=== PATIENT | male | born 1975 | race Caucasian/White ===

== ENCOUNTER 2023-10-13 15:48 | Outpatient (OUT) | payer BC, SELFPAY ==
--- NOTE | 2023-10-13 15:56 | US_ITS ---
[address] [address] Patient Name: STEVIE MIKE MRN: [id number] date: 1975 Sex: M Assigned Patient Location: [place] Current Patient Location: [place] Accession/Order Number: [id number] Exam Date: 10/13/2023 16:03 Report Date: 10/15/2023 12:39 At the request of: BRANDI WYNN Procedure: US carotid duplex BI EXAMINATION: US carotid duplex BI HISTORY: dizziness, headache, right sided neck pain COMPARISON: No relevant comparison available. TECHNIQUE: Duplex Doppler ultrasound analysis of carotid and vertebral arteries. . Bilateral carotid arterial duplex examination was performed using B-mode, color flow and spectral analysis. Carotid stenosis is reported according to validated velocity parameters, similar to NASCET criteria. FINDINGS: RIGHT CAROTID ARTERY: Minimal atherosclerotic disease; no significant stenosis. RIGHT VERTEBRAL: Antegrade flow. Subclavian: PSV: 174.0 cm/s EDV: 32.3 cm/s CCA: Prox: PSV: 110.2 cm/s EDV: 21.5 cm/s Mid: PSV: 80.6 cm/s EDV: 15.6 cm/s Distal: PSV: 63.3 cm/s EDV: 8.9 cm/s BULB: PSV: 45.2 cm/s EDV: 8.9 cm/s ICA: Prox: PSV: 50.4 cm/s EDV: 19.7 cm/s Mid: PSV: 63.3 cm/s EDV: 23.2 cm/s Distal: PSV: 59.4 cm/s EDV: 23.2 cm/s ECA: PSV: 112.9 cm/s EDV: 17.6 cm/s VERTEBRAL: PSV: 53.1 cm/s EDV: 19.2 cm/s ICA/CCA ratio: PSV: 0.8 EDV: 1.5 LEFT CAROTID ARTERY: Minimal atherosclerotic disease; no significant stenosis. LEFT VERTEBRAL: Antegrade flow. Subclavian: PSV: 197.5 cm/s EDV: 0.0 cm/s CCA: Prox: PSV: 136.1 cm/s EDV: 30.3 cm/s Mid: PSV: 102.7 cm/s EDV: 22.0 cm/s Distal: PSV: 84.6 cm/s EDV: 17.5 cm/s BULB: PSV: 66.8 cm/s EDV: 21.5 cm/s ICA: Prox: PSV: 77.4 cm/s EDV: 32.1 cm/s Mid: PSV: 83.8 cm/s EDV: 32.1 cm/s Distal: PSV: 82.2 cm/s EDV: 32.1 cm/s ECA: PSV: 101.5 cm/s EDV: 25.7 cm/s VERTEBRAL: PSV: 56.8 cm/s EDV: 16.7 cm/s ICA/CCA ratio: PSV: 0.8 EDV: 1.5 US/US carotid duplex BI IMPRESSION: 1. Minimal atherosclerotic disease. 2. 0-49% flow stenosis within the right and left carotid arteries. Spectral Doppler US Thresholds Stenosis (%) PSV (cm/sec) VICA/VCCA 0-49 <150 <2.5 50-69 150-225 2.5-4.0 >70 >225 >4.0 Electronically authenticated by: KARMA BARKLEY Date: 10/15/2023 12:39
== END 2023-10-13 15:49 | disposition home or self-care (01) ==
LOC: US 15:52
PROVIDERS: PCP Nurse Practitioner; Visit Provider Nurse Practitioner
DX: R42 Dizziness and giddiness (principal); R51.9 Headache, unspecified; M54.2 Cervicalgia
CPT/HCPCS: 93880

== ENCOUNTER 2024-09-25 15:50 | Outpatient (OUT) | payer OTHER, SELFPAY ==
--- NOTE | 2024-09-25 16:00 | XR_ITS ---
The [address] [address] Patient Name: STEVIE MIKE MRN: [id number] date: 1975 Sex: M Assigned Patient Location: [facility] Current Patient Location: [facility] Accession/Order Number: [id number] Exam Date: 09/25/2024 18:20 Report Date: 09/25/2024 18:21 At the request of: BRANDI WYNN Procedure: XR ankle RT min 3V XR ankle RT min 3V 09/25/2024 4:08 PM SIGNS AND SYMPTOMS: Frontal, lateral, and oblique radiographs of the right ankle PROTOCOL: Frontal, lateral, and oblique radiographs of the right ankle COMPARISON: None FINDINGS: The ankle mortise is preserved. There is no evidence of acute displaced fracture. No dislocation or subluxation. There is plantar surface calcaneal spurring. There is diffuse soft tissue swelling. XR/XR ankle RT min 3V IMPRESSION: No fracture. Diffuse soft tissue swelling is noted. There is also mild plantar surface calcaneal spurring. Impression dictated by: Sandeep Campuzano M.D.09/25/2024 6:21 PM Dictation Location: [place] [address] Electronically authenticated by: [id number] Y Date: 09/25/2024 18:21
--- NOTE | 2024-09-25 16:00 | XR_ITS ---
The [address] [address] Patient Name: STEVIE MIKE MRN: [id number] date: 1975 Sex: M Assigned Patient Location: [facility] Current Patient Location: [facility] Accession/Order Number: [id number] Exam Date: 09/25/2024 18:19 Report Date: 09/25/2024 18:20 At the request of: BRANDI WYNN Procedure: XR tibia fibula RT 2V XR tibia fibula RT 2V 09/25/2024 4:08 PM SIGNS AND SYMPTOMS: ^Riight Leg Injury, Right Ankle Injury PROTOCOL: Frontal and lateral radiographs of the right tibia and fibula COMPARISON: None FINDINGS: The bones are in anatomical. There is no evidence of fracture. The visualized weightbearing joint spaces of the right knee are preserved. The right tibiotalar joint space is preserved. No significant soft tissue swelling. XR/XR tibia fibula RT 2V IMPRESSION: No acute bony injury. Impression dictated by: Sandeep Campuzano M.D.09/25/2024 6:20 PM Dictation Location: [place] [address] Electronically authenticated by: [id number] Y Date: 09/25/2024 18:20
--- OUTSIDE RECORDS SUMMARY | 2024-09-25 16:13 | XMS_ITS | CCD ---
Author Organization [facility] Care Team Providers Care Tool And Die Maker Name Role Phone Mellissa Salazar Primary Care Provider Mumtaz Bone Attending Provider [phone] Unavailable Unavailable Mellissa Salazar Unavailable Mellissa Salazar Primary Care Unavailable NORTH Haddad Attending Unavailable NORTH Haddad Referring Unavailable DR MELLISSA RIGGS Primary Care Unavailable GUTIERREZ BEAN Attending Unavailable GUTIERREZ BEAN Consulting Unavailable GUTIERREZ BEAN Admitting Unavailable Kristie Manley Primary Care Physician [phone] [place] TELEVISION PRODUCER-Kristie KAT Primary Care Provider [phone] MANAN MEDRANO Attending Unavailable MANAN MEDRANO Referring Unavailable TIANNAKRISTIE BAKER Primary Care Unavailable MANAN MEDRANO Referring Unavailable TIANNAKRISTIE BAKER Primary Care Unavailable MANAN MEDRANO Attending Unavailable MANAN MEDRANO Attending Unavailable TIANNAKRISTIE Primary Care Unavailable TiannaKristie Attending Unavailable ITZ CULLEN Attending Unavailable TiannaKristie Attending Unavailable TiannaKristie Attending Unavailable TiannaKristie Attending Unavailable TiannaKristie Attending Unavailable ITZ CULLEN Admitting Unavailable ITZ CULLEN Attending Unavailable Unavailable Unavailable Unavailable Medications Current Medications Medication Drug Class(es) Dates Sig (Normalized) Sig (Original) amLODIPine 5 mg oral tablet (11 sources) Dihydropyridine Calcium Channel Marleen Start: 10-25-2023 End: 10-24-2024 take 1 tablet by mouth once daily amLODIPine (Norvasc) 5 mg tablet Indications: Benign essential hypertension Take 1 tablet (5 mg) by mouth once daily. 30 tablet 11 10/25/2023 10/24/2024 Active Start: 10-08-2020 End: 10-25-2023 take 1 tablet by mouth once daily amLODIPine 2.5 mg Tab 2.5 mg = 1 tab(s), Oral, Daily, # 90 tab(s), Refills(s) 3, Pharmacy: [facility] #[id number], 188.8, cm, 07/12/23 9:49:00 EST, Height/Length Dosing, 159.2, kg, 07/12/23 9:49:00 EST, Weight Dosing Start Date: 08/15/23 Status: Ordered famotidine 40 mg oral tablet (1 source) Histamine-2 Receptor Antagonist Start: 09-22-2020 take 40 mg by mouth once daily Famotidine Active 40 MG PO Daily September 22, 2020 9:21am hydroCHLOROthiazide 25 mg / lisinopril 20 mg oral tablet (6 sources) Thiazide Diuretic, Angiotensin Converting Enzyme Inhibitor Start: 03-04-2019 hydrochlorothia zide-lisinopril 25 mg-20 mg Tab 1 tab(s), Oral, Daily, 90 tab(s), Refill(s) 3, [facility][id number], 188.8, cm, 07/12/23 9:49:00 EST, Height/Length Dosing, 159.2, kg, 07/12/23 9:49:00 EST, Weight Dosing Start Date: 08/28/23 Status: Ordered lisinopril 5 mg oral tablet (1 source) Angiotensin Converting Enzyme Inhibitor Start: 12-07-2020 take 1 mg by mouth once daily lisinopril 5 mg Tab mg tab(s), Oral, Daily, Refills(s) 0 Start Date: 12/07/20 Status: Ordered metFORMIN hydrochloride 500 mg oral tablet (7 sources) Biguanide Start: 12-07-2020 take 1 tablet by mouth twice daily metformin 500 mg Tab 500 mg = 1 tab(s), Oral, BID, # 180 tab(s), Refills(s) 1, Pharmacy: [facility]pharmacy #[id number], 188.8, cm, 04/05/23 14:52:00 EDT, Height/Length Dosing, 157.9, kg, 04/05/23 14:52:00 EDT, Weight Dosing Start Date: 04/10/23 Status: Ordered Start: 10-26-2020 take 1 tablet by rand th once daily in the morning metFORMIN HCl - 500 MG Oral Tablet TAKE 1 TABLET BY MOUTH EVERY DAY IN THE MORNING Quantity: 90 Refills: 0 Ordered: 23-Oct-2021 DO Start : 26-Oct-2020 Active Start: 09-22-2020 take 500 mg by mouth once daily in the morning Metformin Active 500 MG PO Every morning September 22, 2020 9:21am Completed/Discontinued Medications Medication Drug Class(es) Dates Sig (Normalized) Sig (Original) atorvastatin 20 mg oral tablet (1 source) HMG-CoA Reductase Inhibitor Start: 03-07-2019 End: 09-22-2020 take 20 mg by mouth once daily at bedtime Atorvastatin Discontinued 20 MG PO Daily at bedtime March 07, 2019 3:16pm September 22, 2020 9:24am cyproheptadine hydrochloride 4 mg oral tablet (1 source) Start: 03-07-2019 End: 09-22-2020 take 2 mg by mouth once daily at bedtime Cyproheptadine Discontinued 2 MG PO Daily at bedtime 15 March 07, 2019 3:14pm September 22, 2020 9:24am Problems Problem Classification Problem Date Documented Da te Episodic/Chronic Asthma (2 sources) Asthma 10-11-2013 Chronic Conditions associated with dizziness or vertigo (2 sources) Dizziness; Translations: [Lightheadedness] Episodic Disorders of teeth and jaw (1 source) Toothache 07-12-2023 Episodic Essential hypertension (18 sources) Hypertensive disorder; Translations: [Benign essential hypertension] Onset: 07-16-2022 Chronic Nonspecific chest pain (1 source) Precordial pain; Translations: [Precordial pain] Episodic Open wounds of head; neck; and trunk (1 source) Fracture of tooth 07-12-2023 Episodic Other nutritional; endocrine; and metabolic disorders (3 sources) Body mass index 30+ - obesity; Translations: [Body mass index (BMI) 39.0-39.9, adult] Onset: 04-25-2024 04-25-2024 Chronic Other nutritional; endocrine; and metabolic disorders (6 sources) Body mass index 40+ - severely obese; Translations: [Morbid obesity] Onset: 10-25-2023 10-05-2023 Chronic Other nutritional; endocrine; and metabolic disorders (5 sources) Metabolic syndrome X; Translations: [Metabolic syndrome] Onset: 10-25-2023 10-25-2023 Chronic Other nutritional; endocrine; and metabolic disorders (2 sources) Body mass index (BMI) 39.0-39.9, adult; Translations: [Body mass index (BMI) 39.0-39.9, adult] Onset: 04-25-2024 Chronic Other nutritional; endocrine; and metabolic disorders (2 sources) Morbid (severe) obesity due to excess calories; Translations: [Morbid (severe) obesity due to excess calories (CMS/HCC)] Onset: 10-25-2023 Chronic Other nutritional; endocrine; and metabolic disorders (2 sources) Body mass index (BMI) 40.0-44.9, adult; Translations: [Body mass index (BMI) 40.0-44.9, adult (CMS/HCC)] Onset: 10-25-2023 Chronic Other nutritional; endocrine; and metabolic disorders (1 source) Metabolic syndrome; Translations: [Metabolic syndrome] Onset: 10-25-2023 Chronic Residual codes; unclassified (3 sources) Obstructive sleep apnea syndrome; Translations: [Obstructive sleep apnea syndrome] 04-04-2023 Chronic Screening and history of mental health and substance abuse codes (8 sources) Ex-smoker; Translations: [Personal history of tobacco use] Onset: 10-25-2023 10-25-2023 Episodic Comment on above: quit 2009; Syncope (2 sources) Near syncope; Translations: [Syncope] Episodic Unclassified (2 sources) Patient encounter status 04-05-2023 Unclassified (1 source) Severe acute respiratory syndrome coronavirus 2 detected 07-25-2023 Results Test Name Value Interpretation Reference Range Facility Ambulatory Visit Summaryon 1 08-11-2023 Ambulatory Visit Summary Ambulatory Visit Summary STEVIE MIKE :1975 Visit Date:06/11/2024 Ambulatory Visit Instructions Your Diagnosis Adult BMI 40.0-44.9 kg/sq m Former smoker Your Care Team Attending Physician - Kristie Syed Primary Care Physician - Kristie Syed This Is Your Medications List amlodipine (amLODIPine 2.5 mg Tab) hydrochlorothiazide-lisino pril (hydrochlorothiazide-lisin opril 25 mg-20 mg Tab) metformin (metformin 500 mg Tab) Procedures Performed Hernia. Discharge Vitals Temperature (Tympanic) 36.9 ???C Heart Rate (Peripheral) 76 Respiratory Rate 18 Blood Pressure 146/92 Height 188.8 cm Height 74 in Weight 155.45 kg Weight 342.708 lb BMI 43.61 Medications What How Much When Instructions Unchanged amlodipine (amLODIPine 2.5 mg Tab) 1 Tablets By Mouth Every day Unchanged hydrochlorothiazide-lisino pril (hydrochlorothiazide-lisin opril 25 mg-20 mg Tab) 1 Tablets By Mouth Every day Unchanged metformin (metformin 500 mg Tab) 1 Tablets By Mouth 2 times a day Allergies No Known Allergies Problems Ongoing - Any problem that you are currently receiving treatment for. BMI 40.0-44.9, adult BMI 45.0-49.9, adult Broken tooth COVID-19 virus detected Dizziness Fracture of tooth Headache Hypertension Neck pain on right side Obstructive sleep apnea syndrome Tendonitis of finger Tooth pain Wellness examination Historical - Any problem that you are no longer receiving treatment for. ASTHMA Patient Survey You may receive a survey via text or e-mail asking about your office visit. Please share your experience with us by completing your survey. We appreciate your feedback and thank you for choosing us for your care. Normal Cuellar [facility] Family Medicine Office/Clini c Noteon 06-11-2024 Family Medicine Office/Clinic Note Family Medicine Office/Clinic Note HPI Staff Stevie is a 48 year old male presenting for sick visit Onset: 4 days ago Body aches: no Chills: intermittent Fatigue: no Cough: yes intermittent productive Sore throat: yes Fever: no Headache: no Nasal congestion: yes Loss of taste: no Loss of smell: no Eye itching/watering: no Sneezing: no SOB: no OTC: Mucinex, ibuprofen, Tylenol History of Present Illness pt presents today with URI symptoms Review of Systems PHQ Score Initial Depression Screen Score: 0 SCORE Physical Exam Vitals & Measurements T: 36.9 ???C(Tympanic) HR: 76(Peripheral) RR: 18 BP: 146/92 SpO2: 98% HT: 74 in HT: 188.8 cm WT: 155.45 kg WT: 342.708 lb BMI: 43.61 General: alert, no acute distress ENMT: oral mucosa moist, no pharyngeal erythema or exudate Cardiovascular: regular rate and rhythm, normal peripheral perfusion Respiratory: Lungs CTA, respirations non labored Extremities: no deformity, no trauma Neurological: oriented x 4, LOC appropriate for age, CN II-XII intact, motor strength equal & normal bilaterally, speech normal Assessment/Plan 1. Cough (R05.9: Cough, unspecified) pt c/o worsening cough. will send in azithromycin, medrol dose pack and bromfed Ordered: azithromycin, = 1 packet(s), Oral, As Directed, as directed on package labeling, X 5 day(s), # 6 tab(s), Refills(s) 0, Pharmacy: [facility]/pharm[facility] #[id number], 188.8, cm, 06/11/24 9:12:00 EST, Height/Length Dosing, 155.4, kg, 06/11/24 9:12:00 EST, Weight Dosing brompheniramine/dextrometh orphan/PSE, 5 mL, Oral, QID for cold symptoms, 200 mL, Refill(s) 0, [facility][id number], 188.8, cm, 06/11/24 9:12:00 EST, Height/Length Dosing, 155.4, kg, 06/11/24 9:12:00 EST, Weight Dosing methylPREDNISolone, = 1 packet(s), Oral, As Directed, as directed on package labeling, X 6 day(s), # 21 tab(s), Refills(s) 0, Pharmacy: [facility]pharm[facility] #[id number], 188.8, cm, 06/11/24 9:12:00 EST, Height/Length Dosing, 155.4, kg, 06/11/24 9:12:00 EST, Weight Dosing 2. Chills (R68.83: Chills (without fever)) having chills on and off Ordered: azithromycin, = 1 packet(s), Oral, As Directed, as directed on package labeling, X 5 day(s), # 6 tab(s), Refills(s) 0, Pharmacy: [facility] #[id number], 188.8, cm, 06/11/24 9:12:00 EST, Height/Length Dosing, 155.4, kg, 06/11/24 9:12:00 EST, Weight Dosing brompheniramine/dextrometh orphan/PSE, 5 mL, Oral, QID for cold symptoms, 200 mL, [facility](s) 0, [id number], cm, 06/11/24 9:12:00 EST, Height/Length Dosing, 155.4, kg, 06/11/24 9:12:00 EST, Weight Dosing methylPREDNISolone, = 1 packet(s), Oral, As Directed, as directed on package labeling, X 6 day(s), # 21 tab(s), Refills(s) 0, [id number], 188.8, cm, 06/11/24 9:12:00 EST, Height/Length Dosing, 155.4, kg, 06/11/24 9:12:00 EST, Weight Dosing 3. Adult BMI 40.0-44.9 kg/sq m (Z68.41: Body mass index [BMI] 40.0-44.9, adult) BMI education given Ordered: azithromycin, = 1 packet(s), Oral, As Directed, as directed on package labeling, X 5 day(s), # 6 tab(s), Refills(s) 0, [id number], 188.8, cm, 06/11/24 9:12:00 EST, Height/Length Dosing, 155.4, kg, 06/11/24 9:12:00 EST, Weight Dosing brompheniramine/dextrometh orphan/PSE, 5 mL, Oral, QID for cold symptoms, 200 mL, Refill(s) 0, [id number], 188.8, cm, 06/11/24 9:12:00 EST, Height/Length Dosing, 155.4, kg, 06/11/24 9:12:00 EST, Weight Dosing methylPREDNISolone, = 1 packet(s), Oral, As Directed, as directed on package labeling, X 6 day(s), # 21 tab(s), Refills(s) 0, [id number], 188.8, cm, 06/11/24 9:12:00 EST, Height/Length Dosing, 155.4, kg, 06/11/24 9:12:00 EST, Weight Dosing 4. Former smoker (Z87.891: Personal history of nicotine dependence) continue not smoking Ordered: azithromycin, = 1 packet(s), Oral, As Directed, as directed on package labeling, X 5 day(s), # 6 tab(s), Refills(s) 0, [id number], 188.8, cm, 06/11/24 9:12:00 EST, Height/Length Dosing, 155.4, kg, 06/11/24 9:12:00 EST, Weight Dosing brompheniramine/dextrometh orphan/PSE, 5 mL, Oral, QID for cold symptoms, 200 mL, Refill(s) 0, [id number], 188.8, cm, 06/11/24 9:12:00 EST, Height/Length Dosing, 155.4, kg, 06/11/24 9:12:00 EST, Weight Dosing methylPREDNISolone, = 1 packet(s), Oral, As Directed, as directed on package labeling, X 6 day(s), # 21 tab(s), Refills(s) 0, [id number], 188.8, cm, 06/11/24 9:12:00 EST, Height/Length Dosing, 155.4, kg, 06/11/24 9:12:00 EST, Weight Dosing Orders: meloxicam, See Instructions, TAKE 1 TABLET BY MOUTH EVERY DAY, # 30 tab(s), Refills(s) 0, Pharmacy: [id number], 188.8, cm, 02/27/24 15:18:00 EDT, Height/Length Dosing, 155.6, kg, 02/27/24 15:18:00 EDT, Weight Dosing Follow-up No qualifying data available Problem List/Past Medical History Ongoing BMI 40.0-44.9, adult BMI 45.0-49.9, adult Broken tooth Chills Cough COVID-19 virus detected Dizziness Fracture of tooth Headache Hypertension Neck pain (more content not included)... Normal [facility] Comment on above: Result Comment: Elec tronically Signed By: Kristie Syed\.br\Date and Time Signed: 06/11/24 10:05 EST Provider Letteron 06-11-2024 Provider Letter Provider Letter June 11, 2024 STEVIE [address]KE [address] [place] [address] : 1975 To Whom It May Concern, Date of Illness: From: _06-10-24 To: _ 06-11-24 May Return to Work On:06-17-24 Restrictions: _ Comments: _ Sincerely, [facility] [address] [address] [facility] Ambulatory Visit Summaryon 0 02-27-2024 Ambulatory Visit Summary Ambulatory Visit Summary RASHID STEVIE Reji :1975 Visit Date:02/27/2024 Ambulatory Visit Instructions Your Diagnosis Tendonitis of finger Former smoker BMI 40.0-44.9, adult Your Care Team Attending Physician - Kristie Syed Primary Care Physician - Kristie Syed This Is Your Medications List amlodipine (amLODIPine 2.5 mg Tab) hydrochlorothiazide-lisino pril (hydrochlorothiazide-lisin opril 25 mg-20 mg Tab) meloxicam (meloxicam 7.5 mg Tab) metformin (metformin 500 mg Tab) methylPREDNISolone (Medrol 4 mg Tab) Procedures Performed Hernia. Medications What How Much When Why Instructions New meloxicam (meloxicam 7.5 mg Tab) 1 Tablets By Mouth Every day Tendonitis of finger Former smoker BMI 40.0-44.9, adult Pickup at [facility] #[id number] New methylPREDNISolone (Medrol 4 mg Tab) 1 Packets By Mouth As Directed Tendonitis of finger Former smoker BMI 40.0-44.9, adult Duration: 6 Days as directed on package labeling Pickup at [facility] #[id number] Unchanged amlodipine (amLODIPine 2.5 mg Tab) 1 Tablets By Mouth Every day Unchanged hydrochlorothiazide-lisino pril (hydrochlorothiazide-lisin opril 25 mg-20 mg Tab) 1 Tablets By Mouth Every day Unchanged metformin (metformin 500 mg Tab) 1 Tablets By Mouth 2 times a day Pharmacy Information [facility]acy #[id number]: [address] [place], [place] [id number] [phone] Allergies No Known Allergies Problems Ongoing - Any problem that you are currently receiving treatment for. BMI 40.0-44.9, adult BMI 45.0-49.9, adult Broken tooth COVID-19 virus detected Dizziness Fracture of tooth Headache Hypertension Neck pain on right side Obstructive sleep apnea syndrome Tendonitis of finger Tooth pain Wellness examination Historical - Any problem that you are no longer receiving treatment for. ASTHMA Patient Survey You may receive a survey via text or e-mail asking about your office visit. Please share your experience with us by completing your survey. We appreciate your feedback and thank you for choosing us for your care. Normal Cuellar [facility] Family Medicine Office/Clini c Noteon 02-27-2024 Family Medicine Office/Clinic Note Family Medicine Office/Clinic Note HPI Staff Stevie is a 48 year old male presenting with right Onset: February 12 or Location: side middle finger Duration: holding things Characteristics:_ pain Aggravated by: closing fist Relieved by: tried nothing Timing:_ Associated Symptoms:_ nothing He said each day it starts feeling a little better Some days are worse than others, held a weed whacking and could not open his hand History of Present Illness pt c/o right middle finger swelling pain Review of Systems PHQ Score Initial Depression Screen Score: 0 SCORE Physical Exam General: alert, no acute distress ENMT: oral mucosa moist, no pharyngeal erythema or exudate Cardiovascular: regular rate and rhythm, normal peripheral perfusion Respiratory: Lungs CTA, respirations non labored Extremities: no deformity, no trauma Neurological: oriented x 4, LOC appropriate for age, CN II-XII intact, motor strength equal & normal bilaterally, speech normal right middle finger swollen and tender, no redness or warmth Assessment/Plan 1. Tendonitis of finger (M77.8: Other enthesopathies, not elsewhere classified) right middle finger slightly swollen and tender. pt states it is much better today than it has been. will send meloxicam and medrol dose pack. if no improvement will refer to hand specialist. Ordered: meloxicam, 7.5 mg = 1 tab(s), Oral, Daily, # 30 tab(s), Refills(s) 0, Pharmacy: [facility] #[id number], 188.8, cm, 02/27/24 15:18:00 EDT, Height/Length Dosing, 155.6, kg, 02/27/24 15:18:00 EDT, Weight Dosing methylPREDNISolone, = 1 packet(s), Oral, As Directed, as directed on package labeling, X 6 day(s), # 21 tab(s), Refills(s) 0, [id number], 188.8, cm, 02/27/24 15:18:00 EDT, Height/Length Dosing, 155.6, kg, 02/27/24 15:18:00 EDT, Weight Dosing 2. Former smoker (Z87.891: Personal history of nicotine dependence) continue not smoking Ordered: meloxicam, 7.5 mg = 1 tab(s), Oral, Daily, # 30 tab(s), Refills(s) 0, [id number], 188.8, cm, 02/27/24 15:18:00 EDT, Height/Length Dosing, 155.6, kg, 02/27/24 15:18:00 EDT, Weight Dosing methylPREDNISolone, = 1 packet(s), Oral, As Directed, as directed on package labeling, X 6 day(s), # 21 tab(s), Refills(s) 0, [id number], 188.8, cm, 02/27/24 15:18:00 EDT, Height/Length Dosing, 155.6, kg, 02/27/24 15:18:00 EDT, Weight Dosing 3. BMI 40.0-44.9, adult (Z68.41: Body mass index [BMI] 40.0-44.9, adult) BMI education given Ordered: meloxicam, 7.5 mg = 1 tab(s), Oral, Daily, # 30 tab(s), Refills(s) 0, [id number], 188.8, cm, 02/27/24 15:18:00 EDT, Height/Length Dosing, 155.6, kg, 02/27/24 15:18:00 EDT, Weight Dosing methylPREDNISolone, = 1 packet(s), Oral, As Directed, as directed on package labeling, X 6 day(s), # 21 tab(s), Refills(s) 0, Pharmacy: [id number], 188.8, cm, 02/27/24 15:18:00 EDT, Height/Length Dosing, 155.6, kg, 02/27/24 15:18:00 EDT, Weight Dosing Follow-up No qualifying data available Problem List/Past Medical History Ongoing BMI 40.0-44.9, adult BMI 45.0-49.9, adult Broken tooth COVID-19 virus detected Dizziness Fracture of tooth Headache Hypertension Neck pain on right side Obstructive sleep apnea syndrome Tendonitis of finger Tooth pain Wellness examination Historical ASTHMA Procedure/Surgical History Hernia. Medications amLODIPine 2.5 mg Tab, 2.5 mg= 1 tab(s), Oral, Daily, 3 refills hydrochlorothiazide-lisino pril 25 mg-20 mg Tab, 1 tab(s), Oral, Daily, 3 refills Medrol 4 mg Tab, 1 packet(s), Oral, As Directed meloxicam 7.5 mg Tab, 7.5 mg= 1 tab(s), Oral, Daily metformin 500 mg Tab, 500 mg= 1 tab(s), Oral, BID, 3 refills Allergies No Known Allergies Social History Tobacco Former smoker, quit more than 30 days ago, quit 13 years ago Tobacco Use:. Cigarettes, Household tobacco concerns: No., 02/27/2024 Family History Asthma: Father. Diabetes mellitus type 1: Father. Heart disease: Father. [facility] Comment on above: Result Comment: Elec tronically Signed By: Kristie Syed\.br\Date and Time Signed: 02/27/24 15:35 EDT Physician Orderon 12-14-2023 Physician Order [id number] [facility] RAD - Ultrasound Reporton RAD - Ultrasound Report [id number] [facility] Ambulatory Visit Summaryon 0 10-16-2023 Ambulatory Visit Summary STEVIE MIKE :1975 Visit Date:10/16/2023 Ambulatory Visit Instructions Your Care Team Attending Physician - Kristie Syed Primary Care Physician - Kristie Syed This Is Your Medications List amlodipine (amLODIPine 2.5 mg Tab) hydrochlorothiazide-lisino pril (hydrochlorothiazide-lisin opril 25 mg-20 mg Tab) metformin (metformin 500 mg Tab) Procedures Performed Hernia. Discharge Vitals Heart Rate (Peripheral) 82 Blood Pressure 158/82 Height 188.8 cm Height 74 in Weight 160.5 kg Weight 353.1 lb BMI 45.03 Medications What How Much When Instructions Unchanged amlodipine (amLODIPine 2.5 mg Tab) 1 Tablets By Mouth Every day Unchanged hydrochlorothiazide-lisino pril (hydrochlorothiazide-lisin opril 25 mg-20 mg Tab) 1 Tablets By Mouth Every day Unchanged metformin (metformin 500 mg Tab) 1 Tablets By Mouth 2 times a day Allergies No Known Allergies Problems Ongoing - Any problem that you are currently receiving treatment for. BMI 40.0-44.9, adult Broken tooth COVID-19 virus detected Dizziness Fracture of tooth Headache Neck pain on right side Obstructive sleep apnea syndrome Tooth pain Wellness examination Historical - Any problem that you are no longer receiving treatment for. ASTHMA Patient Survey You may receive a survey via text or e-mail asking about your office visit. Please share your experience with us by completing your survey. We appreciate your feedback and thank you for choosing us for your care. Titus Cuellar [facility] Family Medicine Office/Clini c Noteon 10-16-2023 Family Medicine Office/Clinic Note Chief Complaint follow up dizziness HPI Staff Stevie is a 47 year old male presenting for 1 week follow up dizziness PATRICIO 10/11/23 History of Present Illness pt presents today to go over carotid artery u/s results Physical Exam Vitals & Measurements HR: 82(Peripheral) BP: 158/82 SpO2: 96% HT: 74 in HT: 188.8 cm WT: 160.5 kg WT: 353.1 lb BMI: 45.03 General: alert, no acute distress ENMT: oral mucosa moist, no pharyngeal erythema or exudate Cardiovascular: regular rate and rhythm, normal peripheral perfusion Respiratory: Lungs CTA, respirations non labored Extremities: no deformity, no trauma Neurological: oriented x 4, LOC appropriate for age, CN II-XII intact, motor strength equal & normal bilaterally, speech normal Assessment/Plan 1. Dizziness (R42: Dizziness and giddiness) carotid artery u/s results normal. pt states he has not had any bad episodes like he did when he had to leave work. he still just has a foggy' feeling in his head. RTC 4 weeks if symptoms continue or worsen Ordered: [facility] External Ambulatory Referral 2. Hypertension (I10: Essential (primary) hypertension) BP continues to be elevated. provider discussed increasing dose of amlodipine. pt prefers to go back to Dr. Bone for management of blood pressure. it has been a few years since he has seen him. will send referral. Ordered: [facility] External Ambulatory Referral 3. BMI 45.0-49.9, adult (Z68.42: Body mass index [BMI] 45.0-49.9, adult) bmi education complete Follow-up No qualifying data available Problem List/Past Medical History Ongoing BMI 40.0-44.9, adult BMI 45.0-49.9, adult Broken tooth COVID-19 virus detected Dizziness Fracture of tooth Headache Hypertension Neck pain on right side Obstructive sleep apnea syndrome Tooth pain Wellness examination Historical ASTHMA Procedure/Surgical History Hernia. Medications amLODIPine 2.5 mg Tab, 2.5 mg= 1 tab(s), Oral, Daily, 3 refills hydrochlorothiazide-lisino pril 25 mg-20 mg Tab, 1 tab(s), Oral, Daily, 3 refills metformin 500 mg Tab, 500 mg= 1 tab(s), Oral, BID Allergies No Known Allergies Social History Tobacco Former smoker, quit more than 30 days ago Tobacco Use:. Cigarettes, Household tobacco concerns: No., 10/16/2023 Family History Asthma: Father. Diabetes mellitus type 1: Father. Heart disease: Father. Normal [facility] Comment on above: Result Comment: Elec tronically Signed By: Kristie Syed\.gerard\Date and Time Signed: 10/16/23 10:45 EDT Physician Referralon 024 Physician Referral [id number] Normal [facility] Family Medicine Office/Clini c Noteon 10-12-2023 Family Medicine Office/Clinic Note HPI Staff Stevie is a 47 year old male presenting for acute visit PATRICIO 10/05/23 saw Itz Cullen labs drawn Pt is feeling lightheaded, foggy intermittent. Pt left work the other day due to feeling bloated/gassy and just not feeling right. Checks blood pressures here and there. History of Present Illness pt present today for follow up on dizziness/fogginess episodes Review of Systems PHQ Score Initial Depression Screen Score: 0 SCORE Physical Exam Vitals & Measurements HR: 86(Peripheral) RR: 18 BP: 142/90 SpO2: 97% HT: 74 in HT: 188.8 cm WT: 156.5 kg WT: 344.3 lb BMI: 43.9 General: alert, no acute distress ENMT: oral mucosa moist, no pharyngeal erythema or exudate Cardiovascular: regular rate and rhythm, normal peripheral perfusion Respiratory: Lungs CTA, respirations non labored Extremities: no deformity, no trauma Neurological: oriented x 4, LOC appropriate for age, CN II-XII intact, motor strength equal & normal bilaterally, speech normal Assessment/Plan 1. Dizziness (R42: Dizziness and giddiness) pt still having episodes of dizziness/fogginess , had to leave work the other day. discussed differential diagnosis of anxiety, fluid in ear drums, orthostatic hypotension, carotid artery blockage. pt and his both do not feel it is anxiety. abs reviewed. will order u/s of carotid arteries. pt will remain off of work until Monday's visit. note provided for work. pt will increase water intake and rest the next couple of days 2. Headache (R51.9: Headache, unspecified) pt will start allergy medication daily 3. Neck pain on right side (M54.2: Cervicalgia) carotid artery u/s order provided [facility] 4. BMI 40.0-44.9, adult (Z68.41: Body mass index [BMI] 40.0-44.9, adult) bmi education compelte 5. Non-smoker (Z78.9: Other specified health status) continue not smoking Follow-up No qualifying data available Problem List/Past Medical History Ongoing BMI 40.0-44.9, adult Broken tooth COVID-19 virus detected Dizziness Headache Neck pain on right side Obstructive sleep apnea syndrome Tooth pain Wellness examination Historical ASTHMA Procedure/Surgical History Hernia. Medications amLODIPine 2.5 mg Tab, 2.5 mg= 1 tab(s), Oral, Daily, 3 refills hydrochlorothiazide-lisino pril 25 mg-20 mg Tab, 1 tab(s), Oral, Daily, 3 refills metformin 500 mg Tab, 500 mg= 1 tab(s), Oral, BID Allergies No Known Allergies Social History Tobacco Former smoker, quit more than 30 days ago Tobacco Use:. Cigarettes, Household tobacco concerns: No., 10/11/2023 Family History Asthma: Father. Diabetes mellitus type 1: Father. Heart disease: Father. [facility] Comment on above: Result Comment: Elec tronically Signed By: Kristie Syed\.br\Date and Time Signed: 10/12/23 16:02 EDT Physician Orderon 10-12-2023 Physician Order [id number] [facility] Ambulatory Visit Summaryon 0 10-11-2023 Ambulatory Visit Summary STEVIE MIKE :1975 Visit Date:10/11/2023 Ambulatory Visit Instructions Your Diagnosis BMI 40.0-44.9, adult Non-smoker Your Care Team Attending Physician - Kristie Syed Primary Care Physician - Kristie Syed This Is Your Medications List amlodipine (amLODIPine 2.5 mg Tab) hydrochlorothiazide-lisino pril (hydrochlorothiazide-lisin opril 25 mg-20 mg Tab) metformin (metformin 500 mg Tab) Procedures Performed Hernia. Discharge Vitals Heart Rate (Peripheral) 86 Respiratory Rate 18 Blood Pressure 142/90 Height 188.8 cm Height 74 in Weight 156.5 kg Weight 344.3 lb BMI 43.9 What to do next Scheduled Follow-Up Appointments Monday 10:20 AM EDT With: Kristie Syed Where: [facility] Ambulatory Visit Summary STEVIE MIKE :1975 Visit Date:10/11/2023 Ambulatory Visit Instructions Your Diagnosis BMI 40.0-44.9, adult Non-smoker Your Care Team Attending Physician - Kristie Syed Primary Care Physician - Kristie Syed This Is Your Medications List amlodipine (amLODIPine 2.5 mg Tab) hydrochlorothiazide-lisino pril (hydrochlorothiazide-lisin opril 25 mg-20 mg Tab) metformin (metformin 500 mg Tab) Procedures Performed Hernia. Discharge Vitals Heart Rate (Peripheral) 86 Respiratory Rate 18 Blood Pressure 142/90 Height 188.8 cm Height 74 in Weight 156.5 kg Weight 344.3 lb BMI 43.9 What to do next Scheduled Follow-Up Appointments Monday 10:20 AM EDT With: Kristie Syed Where: [facility] Provider Letteron 10-11-2023 Provider Letter (Inserted Image. Deidra ble to display) October 11, 2023 STEVIE MIKE [address] [place] [id number] : 1975 To Whom It May Concern, Please excuse above patient from work. Date of Illness: From: _ 10-09-23 To: _ 10-16-23 May Return to Work On:10-17-23 Restrictions: _ Comments: _ Sincerely, [address] [address] [facility] Ambulatory Visit Summaryon 0 10-05-2023 Ambulatory Visit Summary RASHID STEVIE Mendoza :1975 Visit Date:10/05/2023 Ambulatory Visit Instructions Your Diagnosis Lightheadedness Hernia of abdominal wall BMI 40.0-44.9, adult Your Care Team Attending Physician - ITZ CULLEN CNP Primary Care Physician - rKistie Syed This Is Your Medications List amlodipine (amLODIPine 2.5 mg Tab) hydrochlorothiazide-lisino pril (hydrochlorothiazide-lisin opril 25 mg-20 mg Tab) metformin (metformin 500 mg Tab) Procedures Performed Hernia. Discharge Vitals Heart Rate (Peripheral) 91 Blood Pressure 130/90 Height 188.8 cm Height 74 in Weight 154.2 kg Weight 339.24 lb BMI 43.26 Medications What How Much When Instructions Unchanged amlodipine (amLODIPine 2.5 mg Tab) 1 Tablets By Mouth Every day Unchanged hydrochlorothiazide-lisino pril (hydrochlorothiazide-lisin opril 25 mg-20 mg Tab) 1 Tablets By Mouth Every day Unchanged metformin (metformin 500 mg Tab) 1 Tablets By Mouth 2 times a day Allergies No Known Allergies Problems Ongoing - Any problem that you are currently receiving treatment for. BMI 40.0-44.9, adult Broken tooth COVID-19 virus detected Obstructive sleep apnea syndrome Tooth pain Wellness examination Historical - Any problem that you are no longer receiving treatment for. ASTHMA Patient Survey You may receive a survey via text or e-mail asking about your office visit. Please share your experience with us by completing your survey. We appreciate your feedback and thank you for choosing us for your care. Normal [facility] CBC w/ Auto Diffon 4 Basophils/100 WBC (Bld) 0.7 % Normal 0.0-2.0 [facility] Comment on above: Performed By: #### 2 [id number], [id number], [id number] ####[facility] [address] [place] [address] Basophils/Leukocytes Auto (Bld) [Pure # fraction] 0.1 E9/L Normal 0.0-0.2 [facility] Comment on above: Performed By: #### 2 683824, [id number], 9673754 ####[facility] [address] [place] [address] Eosinophils (Bld) [#/Vol] 0.1 E9/L Normal 0.0-0.5 [facility] Comment on above: Performed By: #### 2 251089, [id number], 4391424 ####[facility] [address] [place] [address] Eosinophils/100 WBC (Bld) 1.3 % Normal 0.0-8.0 [facility] Comment on above: Performed By: #### 2 184367, [id number], 4360881 ####[facility] [address] [place] [address] Erythrocyte distribution width (RBC) [Ratio] 14.0 % Normal 10.9-14.2 [facility] Comment on above: Performed By: #### 2 306605, [id number], 4795435 ####[address] [address] Hematocrit (Bld) [Volume fraction] 49.2 % High 37.7-49.0 [facility] Comment on above: Performed By: #### 2 833020, 86468696, 7395509 ####[address] [address] Hemoglobin (Bld) [Mass/Vol] 16.1 g/dL Normal 13.5-17.5 [facility] Comment on above: Performed By: #### 2 372147, 85095691, 6629511 ####[address] [address] Lymphocytes (Bld) [#/Vol] 1.3 E9/L Normal 1.0-4.0 [facility] Comment on above: Performed By: #### 2 064042, [id number], 3481699 ####[address] [address] Lymphocytes/100 WBC (Bld) 18.1 % Normal 14.0-50.0 [facility] Comment on above: Performed By: #### 2 246508, 16432575, 1924944 ####[address] [address] MCH (RBC) [Entitic mass] 30.0 pg Normal 27.0-34.0 [facility] Comment on above: Performed By: #### 2 638929, 33167487, 4274473 ####[address] [address] MCHC (RBC) [Mass/Vol] 32.6 g/dL Normal 31.4-36.0 [facility] Comment on above: Performed By: #### 2 291904, 16415553, 9495364 ####[address] [address] MCV (RBC) [Entitic vol] 92.0 fL Normal 80.0-100.0 [facility] Comment on above: Performed By: #### 2 733894, 83702076, 3136466 ####[address] [address] Monocytes (Bld) [#/Vol] 0.6 E9/L Normal 0.2-1.0 [facility] Comment on above: Performed By: #### 2 579923, 93364793, 8849676 ####[address] [address] Neutrophils (Bld) [#/Vol] 5.3 E9/L Normal 2.0-7.5 [facility] Comment on above: Performed By: #### 2 111633, 75357671, 1853567 ####[address] [address] Neutrophils/100 WBC (Bld) 71.7 % Normal 36.0-75.0 [facility] Comment on above: Performed By: #### 2 702686, 22634091, 5644299 ####[address] [address] Platelet 290.0 E9/L Normal 150.0-500.0 [facility] Comment on above: Performed By: #### 2 077199, 99522700, 4719154 ####[address] [address] Platelet mean volume (Bld) [Entitic vol] 8.9 fL Normal 6.4-10.8 [facility] Comment on above: Performed By: #### 2 289824, 64971824, 0263101 ####[address] [address] RBC (Bld) [#/Vol] 5.3 E12/L Normal 4.3-5.9 [facility] Comment on above: Performed By: #### 2 374986, 10020583, 5615236 ####[address] [address] WBC corrected for nucl RBC Auto (Bld) [#/Vol] 7.4 E9/L Normal 4.0-11.0 [facility] Comment on above: Performed By: #### 2 574004, 39870374, 2291927 ####[facility] [address] [place] [address] CHEMISTRYOrdered By: SYSTEM SYSTEM on 10-05-2023 Albumin [Mass/Vol] 4.7 g/dL Normal 3.3 - 5.0 gm/dL Remisol Chem Albumin/Globulin [Mass ratio] 1.5 {ratio} Normal 1.1 - 2.2 Remisol Chem ALP [Catalytic activity/Vol] 49 [iU]/d Normal 21 - 98 Int._Unit/L Remisol Chem ALT No additional P-5'-P [Catalytic activity/Vol] 46 [iU]/d Normal 6 - 46 Int._Unit/L Remisol Chem Anion gap [Moles/Vol] 12 mmol/L Normal 6 - 16 mEq/L Remisol Chem AST [Catalytic activity/Vol] 27 [iU]/d Normal 5 - 43 Int._Unit/L Remisol Chem Bilirubin [Mass/Vol] 0.7 mg/dL Normal 0.0 - 1 .1 mg/dL Remisol Chem Calcium [Mass/Vol] 10.0 mg/dL Normal 8.9 - 11. 1 mg/dL Remisol Chem Chloride [Moles/Vol] 102 mmol/L Normal 101 - 1 11 mmol/L Remisol Chem CO2 [Moles/Vol] 28 mmol/L Normal 21 - 31 mmol/L Remisol Chem Creatinine [Mass/Vol] 1.0 mg/dL Normal 0.5 - 1.3 mg/dL Remisol Chem eGFR 93 mL/min/1.73 m2 Normal >=59mL/min / 1.73 m2 Remisol Chem Globulin (S) [Mass/Vol] 3.2 g/dL Normal 1.4 - 4.0 gm/dL Remisol Chem Glucose [Mass/Vol] 109 mg/dL Normal 55 - 199 mg/dL Remisol Chem Potassium [Moles/Vol] 4.0 mmol/L Normal 3.5 - 5.3 mmol/L Remisol Chem Protein [Mass/Vol] 7.9 g/dL High 6.0 - 7.8 gm/dL Remisol Chem Sodium [Moles/Vol] 138 mmol/L Normal 135 - 145 mmol/L Remisol Chem Urea nitrogen [Mass/Vol] 19 mg/dL Normal 5 - 21 mg/dL Remisol Chem Urea nitrogen/Creatinine [Mass ratio] 19 mg/mg Normal 10 - 20 Remisol Chem CMPon 10-05-2023 Albumin [Mass/Vol] 4.7 g/dL Normal 3.3-5.0 [facility] Comment on above: Performed By: #### 2 772241, 93062481, 1013891 ####[facility] [address] [place] [address] Albumin/Globulin (S) [Mass conc ratio] 1.5 Normal 1.1-2.2 [facility] Comment on above: Performed By: #### 2 156227, 27932790, 4752836 ####[address] [address] ALP [Catalytic activity/Vol] 49 Int._Unit/L Normal 21-98 [facility] Comment on above: Performed By: #### 2 655606, 44903861, 6337653 ####[address] [address] ALT No additional P-5'-P [Catalytic activity/Vol] 46 Int._Unit/L Normal 6-46 [facility] Comment on above: Performed By: #### 2 537884, 38571112, 4238952 ####[facility] [address] [place] [address] Anion gap [Moles/Vol] 12 mmol/L Normal 6-16 [facility] Comment on above: Performed By: #### 2 321628, 32394311, 3903551 ####[facility] [address] [place] [address] AST [Catalytic activity/Vol] 27 Int._Unit/L Normal 5-43 [facility] Comment on above: Performed By: #### 2 224938, 70942197, 4860076 ####[facility] [address] [place] [address] Bilirubin [Mass/Vol] 0.7 mg/dL Normal 0.0-1.1 [facility] Comment on above: Performed By: #### 2 496376, 49794927, 9734428 ####[address] [address] Calcium [Mass/Vol] 10.0 mg/dL Normal 8.9-11.1 [facility] Comment on above: Performed By: #### 2 496923, 66907837, 4155623 ####[address] [address] Chloride [Moles/Vol] 102 mmol/L Normal 101-111 [facility] Comment on above: Performed By: #### 2 400332, 15491748, 8673671 ####[address] [address] CO2 [Moles/Vol] 28 mmol/L Normal 21-31 [facility] Comment on above: Performed By: #### 2 666805, 31646710, 3387659 ####[address] [address] Creatinine [Mass/Vol] 1.0 mg/dL Normal 0.5-1.3 [facility] Comment on above: Performed By: #### 2 186901, 39888905, 0213159 ####[address] [address] Globulin (S) [Mass/Vol] 3.2 g/dL Normal 1.4-4.0 [facility] Comment on above: Performed By: #### 2 111126, 66943444, 1823690 ####[address] [address] Glucose [Mass/Vol] 109 mg/dL Normal 55-199 [facility] Comment on above: Performed By: #### 2 419529, 30928758, 6476578 ####[address] [place] [address] Potassium [Moles/Vol] 4.0 mmol/L Normal 3.5-5.3 [facility] Comment on above: Performed By: #### 2 822030, 87073875, 7521551 ####[facility] [address] [place] [address] Protein [Mass/Vol] 7.9 g/dL High 6.0-7.8 [facility] Comment on above: Performed By: #### 2 706809, 05798522, 6122505 ####[facility] [address] [place] [address] Sodium [Moles/Vol] 138 mmol/L Normal 135-145 [facility] Comment on above: Performed By: #### 2 346819, 15395431, 1891820 ####[facility] [address] [place] [address] Urea nitrogen [Mass/Vol] 19 mg/dL Normal 5-21 [facility] Comment on above: Performed By: #### 2 722624, 34370780, 2883555 ####[facility] [address] [place] [address] Urea nitrogen/Creatinine [Mass ratio] 19 No Units Normal 10-20 [facility] Comment on above: Performed By: #### 2 085043, 90755979, 1443715 ####[facility] [address] [place] [address] Family Medicine Office/Clini c Noteon 10-05-2023 Family Medicine Office/Clinic Note Chief Complaint patient having dizziness and abdomen issues HPI Staff Stevie is a 47 year old male patient of Oriana Manley NP presenting for acute visit Pt states he has had previous hernia surgery and now his stomach is sticking out and c/o having dizziness. Patient had hernia surgery a couple years ago. Patient is complaining of dizziness. Patient had to go home from work yesterday. 128/89 at home for blood pressure. Patient does not check blood pressure at home on a regular basis. History of Present Illness 47 year old patient of [facility] presents today for evaluation of hernia and dizziness. He reports yesterday at work he was feeling a bit light headed at work so he left. He reports he got in his truck and drank some water and started to feel better and when he got home he laid down for a few hours and he felt better. He called off work today because he had the same feeling when he got up today. He reports he is on metFORMIN but does not know if he is diabetic. He does not check his blood sugar. He states he knows he has another abdominal hernia and this may be contributing to the lightheadedness . He states nothing makes the lightheadedness worse. He states Dr. Ruiz did his first hernia surgery at [facility]. Explained to patient Dr Ruiz is not practicing any longer. Patient would like a referral to general surgery but would like to discuss this with his first. Review of Systems PHQ Score Initial Depression Screen Score: 0 SCORE Constitutional: no fever, no chills, no sweats, no weakness Skin: no Jaundice, no rash, no lesions, nopetechiae ENMT: no ear pain, no sore throat, no congestion, no hoarseness Respiratory: no shortness of breath, no cough, no orthopnea, no wheezing Cardiovascular: no chest pain, no palpitations, no edema Gastrointestinal: no nausea, no vomiting, no diarrhea, no GI bleeding Neurologic: no headache, no dizziness, no numbness, no weakness, mild lightheadedness Psychiatric: no sleeping problems, no irritability, no mood swings/depression. Additional ROS info: Except as noted in the above Review of Systems and in the History of Present Illness all other systems have been reviewed and are negative or noncontributory. Physical Exam Vitals & Measurements HR: 91(Peripheral) BP: 130/90 HT: 74 in HT: 188.8 cm WT: 154.2 kg WT: 339.24 lb BMI: 43.26 General: alert, no acute distress Skin: warm, dry Head: no trauma, normocephalic Neck: Trachea midline, no adenopathy, no tenderness Eye: normal conjunctiva, sclera clear ENMT: TM's clear, oral mucosa moist, no pharyngeal erythema or exudate Cardiovascular: regular rate and rhythm, normal peripheral perfusion Respiratory: Lungs CTA, respirations non labored Gastrointestinal: soft, non distended, no tenderness, no guarding; reducible hernia below the umbilicus. Extremities: no deformity, no trauma Neurological: oriented x 4, LOC appropriate for age, CN II-XII intact, motor strength equal & normal bilaterally, sensation equal & normal bilaterally, speech normal Psychiatric: cooperative, affect appropriate for age, normal judgement, Assessment/Plan 1. Lightheadedness (R42: Dizziness and giddiness) Discussed with patient this is a symptom r/t blood sugar, dehydration, or ear congestion. Kaylene states this is not new and has been occurring for a long time since he was diagnosed with high blood pressure Given neurological exam is negative will start with laboratory testing to r/o blood sugar and dehydration Discussed next step may be tilt table, or carotid scan note completed for employer for [employer]ene to [employer] on Monday, October 09, 2023 f/u TBD pending results of laboratory testing. Ordered: Lab Specimen Collect [id number] 2. Hernia of abdominal wall (K43.9: Ventral hernia without obstruction or gangrene) Discussed referral to general surgeon- Patient will discuss with his and call the pcp for referral Ordered: Lab Specimen Collect [id number] 3. BMI 40.0-44.9, adult (Z68.41: Body mass index [BMI] 40.0-44.9, adult) The standard range for ages 18 and older is >=18.5 and < 25 kg/m2. Your BMI today was above this range, this falls in the overweight to obese category and there are medical benefits to weight loss. We can offer counselling, referral, and/or medical support in addressing this problem. Your BMI and weight management will be followed at subsequent visits. Ordered: CBC w/ Auto Diff Comprehensive Metabolic Panel Lab Specimen Collect [id number] Follow-up No qualifying data available Patient Education Tilt Table Test Dizziness, Gnjh-dz-Gkgj Problem List/Past Medical History Ongoing BMI 40.0-44.9, adult Broken tooth COVID-19 virus detected Obstructive sleep apnea syndrome Tooth pain Wellness examination Historical ASTHMA Procedure/Surgical History Hernia. Medications amLODIPine 2.5 mg Tab, 2.5 mg= 1 tab(s), Oral, Daily, 3 refills hydrochlorothiazide-lisino pril 25 mg-20 mg Tab, 1 tab(s), Oral, Daily, (more content not included)... Normal [facility] Comment on above: Result Comment: Elec tronically Signed By: ITZ CULLEN CNP\Date and Time Signed: 10/05/23 13:47 EST HEMATOLOGYOrdered By: SYSTEM SYSTEM on 10-05-2023 Basophils/100 WBC (Bld) 0.7 % Normal 0.0 - 2.0 % Remisol Heme Basophils/Leukocytes Auto (Bld) [Pure # fraction] 0.1 E9/L Normal 0.0 - 0.2 E9/L Remisol Heme Eosinophils (Bld) [#/Vol] 0.1 E9/L Normal 0.0 - 0.5 E9/L Remisol Heme Eosinophils/100 WBC (Bld) 1.3 % Normal 0.0 - 8.0 % Remisol Heme Erythrocyte distribution width (RBC) [Ratio] 14.0 % Normal 10.9 - 14.2 % Remisol Heme Hematocrit (Bld) [Volume fraction] 49.2 % High 37.7 - 49.0 % Remisol Heme Hemoglobin (Bld) [Mass/Vol] 16.1 g/dL Normal 13.5 - 17.5 gm/dL Remisol Heme Lymphocytes (Bld) [#/Vol] 1.3 E9/L Normal 1.0 - 4.0 E9/L Remisol Heme Lymphocytes/100 WBC (Bld) 18.1 % Normal 14.0 - 50.0 % Remisol Heme MCH (RBC) [Entitic mass] 30.0 pg Normal 27.0 - 34.0 pg Remisol Heme MCHC (RBC) [Mass/Vol] 32.6 g/dL Normal 31.4 - 36.0 gm/dL Remisol Heme MCV (RBC) [Entitic vol] 92.0 fL Normal 80.0 - 100.0 fL Remisol Heme Monocytes (Bld) [#/Vol] 0.6 E9/L Normal 0.2 - 1.0 E9/L Remisol Heme Monocytes/100 WBC (Bld) 8.2 % Normal 4.0 - 14.0 % Remisol Heme Neutrophils (Bld) [#/Vol] 5.3 E9/L Normal 2.0 - 7.5 E9/L Remisol Heme Neutrophils/100 WBC (Bld) 71.7 % Normal 36.0 - 75.0 % Remisol Heme Platelet 290.0 E9/L Normal 150.0 - 500.0 E9/L Remisol Heme Platelet mean volume (Bld) [Entitic vol] 8.9 fL Normal 6.4 - 10.8 fL Remisol Heme RBC (Bld) [#/Vol] 5.3 E12/L Normal 4.3 - 5.9 E12/L Remisol Heme WBC corrected for nucl RBC Auto (Bld) [#/Vol] 7.4 E9/L Normal 4.0 - 11.0 E9/L Remisol Heme Patient Educationon 10-05-19 Patient Education Neurology Tilt Table Test A tilt table test is a test to find the cause of unexplained problems, such as: ? Fainting. ? Dizziness. ? Falls. ? A drop in blood pressure when standing up (orthostatic hypotension). For this test, you will be safely secured to a table that moves you from a lying position to an upright position. Your heart rhythm and blood pressure will be monitored during the test. During and for a short time after the test, it is normal to: ? Feel light-headed or dizzy. ? Faint. ? Feel nauseous or vomit. ? Have blurry vision. ? Feel cold or clammy. Tell a health care provider about: ? All medicines you are taking, including vitamins, herbs, eye drops, creams, and kosl-uqc-fubdyoi medicines. ? Any surgeries you have had. ? Any medical conditions you have or have had. ? Whether you are or may be . What are the risks? Generally, this is a safe test with few risks or complications. A heart attack or stroke can occur in people with significant coronary or carotid artery stenosis, but this is very rare. What happens before the test? ? Follow instructions from your health care provider about eating or drinking restrictions. ? Ask your health care provider about changing or stopping your regular medicines. This is especially important if you are taking diabetes medicines or blood thinners. ? Let your primary health care provider know that you are having this test. ? Plan to have a responsible adult take you home from the hospital or clinic. What happens during the test? ? You will lie down on a table. The table will have a footboard and safety straps to keep you in place. There are two parts to this test. ? An IV will be inserted into one of your veins. ? Your blood pressure, heart rate, breathing rate, and blood oxygen level will be monitored throughout the test. ? Your heart rhythm will be monitored with an electrocardiograph (ECG). Part one of the test ? You will be placed in an upright position by tilting the table. You will need to tell your health care provider right away if you feel dizzy or feel like you are going to faint. ? If you feel dizzy, your blood pressure drops, or your heart rate drops, you will be placed in a flat or head-down position. The test may end at this point. ? If your heart rate or blood pressure does not return to normal after that, you may be given medicine to help with symptoms of low blood pressure or a slow heart rate. The medicine may be given under your tongue or through the IV. ? If you do not have symptoms when placed in an upright position, part two of the test may be done. Part two of the test ? If you had no symptoms in part one of the test, medicine may be given to cause your heart to beat faster and stronger. You may feel as if you are exercising. The medicine may be given under your tongue or through the IV. ? You will be placed in an upright position again by tilting the table. Tell your health care provider right away if you feel dizzy or feel like you are going to faint. ? If you feel dizzy, your blood pressure drops, or your heart rate drops, you will be placed in a flat or head-down position, and the test will end. ? If you do not have symptoms, the test will continue. If after 15 minutes your blood pressure does not drop, the table will be lowered and the test will be complete. This test may vary among health care providers and hospitals. What can I expect after the test? ? You will be monitored for up to an hour after the test is finished. ? If you fainted or lost consciousness during the test, you may need to stay for additional testing. ? Your health care provider will tell you when you can go home. ? Do not drive yourself home if you fainted during the test. ? It is up to you to get your test results. Ask your health care provider, or the department that is doing the test, when your results will be ready. Summary ? A tilt table test is a test to find the cause of unexplained problems such as dizziness or fainting. ? Follow instructions from your health care provider about eating or drinking restrictions before the test. ? Follow instructions from your health care provider about changing or stopping your regular medicines. This is especially important if you are taking diabetes medicines or blood thinners. ? Your blood pressure, heart rate, breathing rate, and blood oxygen level will be monitored throughout the test. ? Plan to have a responsible adult take you home from the hospital or clinic. This information is not intended to replace advice given to you by your health care provider. Make sure you discuss any questions you have with your health care provider. Document Revised: 03/30/2022 Document Reviewed: 11/25/2021 [employer] Patient Education ? 2022 [employer] Dizziness Dizziness is a common problem. It makes you feel unsteady or light-headed. You may feel like you are about to pa (more content not included)... Normal [facility] Provider Letteron 10-05-2023 Provider Letter (Inserted Image. Deidra ble to display) October 05, 2023 STEVIE MIKE [address] [place] [address] : 1975 To Whom It May Concern, Please excuse above patient from work 10-04, and 10-06-23 due to medical Date of Illness: From: _10-05-23 To: _10-06-23 May Return to Work On:10-09-23 Restrictions: _ Comments: _ Sincerely, [address] [address] Normal [facility] eGFRon 10-05-2023 eGFR 93 mL/min/1.73 m2 Normal >=59 [facility] Comment on above: Order Comment: Order added by Discern Expert. Performed By: #### 2 [id number] ####[facility] [id number] [place] [address] CHEMISTRYOrdered By: SYSTEM SYSTEM on 04-05-2023 Albumin [Mass/Vol] 4.5 g/dL Normal 3.3 - 5.0 gm/dL [facility] Remisol Albumin/Globulin [Mass ratio] 1.3 {ratio} Normal 1.1 - 2.2 [facility] Remisol ALP [Catalytic activity/Vol] 48 [iU]/d Normal 21 - 98 Int._Unit/L [facility] Remisol ALT No additional P-5'-P [Catalytic activity/Vol] 57 [iU]/d High 6 - 46 Int._Unit/L [facility] Remisol Anion gap [Moles/Vol] 13 mmol/L Normal 6 - 16 mEq/L [facility] Remisol AST [Catalytic activity/Vol] 41 [iU]/d Normal 5 - 43 Int._Unit/L [facility] Remisol Bilirubin [Mass/Vol] 0.5 mg/dL Normal 0.0 - 1 .1 mg/dL [facility] Calcium [Mass/Vol] 9.9 mg/dL Normal 8.9 - 11. 1 mg/dL [facility] Chloride [Moles/Vol] 104 mmol/L Normal 101 - 1 11 mmol/L [facility] Cholesterol [Mass/Vol] 240 mg/dL High 120 - 200 mg/dL [facility] Cholesterol in HDL [Mass/Vol] 59 mg/dL Invalid Interpretation Code [facility]isol Cholesterol in LDL [Mass/Vol] 160 mg/dL High <=129mg/dL [facility] Cholesterol in VLDL [Mass/Vol] 15 mg/dL Normal 7 - 40 mg/dL [facility] CO2 [Moles/Vol] 27 mmol/L Normal 21 - 31 mmol/L [facility] Creatinine [Mass/Vol] 1.1 mg/dL Normal 0.5 - 1.3 mg/dL [facility] Remisol GFR/1.73 sq M.predicted among non-blacks MDRD (S/P/Bld) [Vol rate/Area] 84 mL/min/1.73 m2 Normal >=59mL/min/ 1.73 m2 [facility] S Globulin (S) [Mass/Vol] 3.5 g/dL Normal 1.4 - 4.0 gm/dL [facility] Remisol Glucose [Mass/Vol] 99 mg/dL Normal 55 - 199 mg/dL [facility] Remisol Potassium [Moles/Vol] 3.8 mmol/L Normal 3.5 - 5.3 mmol/L [facility] Remisol Prostate specific Ag [Mass/Vol] 0.5 ng/mL Normal 0.1 - 3.5 ng/mL [facility] Protein [Mass/Vol] 8.0 g/dL High 6.0 - 7.8 gm/dL [facility] Sodium [Moles/Vol] 140 mmol/L Normal 135 - 145 mmol/L [facility] Triglyceride [Mass/Vol] 77 mg/dL Normal <=149mg/dL [facility] TSH Qn 1.41 m[IU]/L Normal 0.34 - 5.60 mcIU/mL [facility] Urea nitrogen [Mass/Vol] 22 mg/dL High 5 - 21 mg/dL [facility] Urea nitrogen/Creatinine [Mass ratio] 20 mg/mg Normal 10 - 20 [facility] HEMATOLOGYOrdered By: SYSTEM SYSTEM on 04-05-2023 Basophils/100 WBC (Bld) 1.0 % Normal 0.0 - 2.0 % [facility] HemeAutoSS Basophils/Leukocytes Auto (Bld) [Pure # fraction] 0.1 E9/L Normal 0.0 - 0.2 E9/L [facility]eAutoSS Eosinophils/100 WBC (Bld) 1.1 % Normal 0.0 - 8.0 % [facility]eAutoSS Eosinophils/Leukocyt es Auto (Bld) [Pure # fraction] 0.1 E9/L Normal 0.0 - 0.5 E9/L [facility]eAutoSS Lymphocytes/100 WBC (Bld) 24.7 % Normal 14.0 - 50.0 % [facility] HemeAutoSS Lymphocytes/Leukocyt es Auto (Bld) [Pure # fraction] 1.8 E9/L Normal 1.0 - 4.0 E9/L [facility] HemeAutoSS Monocytes/100 WBC (Bld) 7.8 % Normal 4.0 - 14.0 % [facility] HemeAutoSS Monocytes/Leukocytes Auto (Bld) [Pure # fraction] 0.6 E9/L Normal 0.2 - 1.0 E9/L [facility]eAutoSS Neutrophils/100 WBC (Bld) 65.4 % Normal 36.0 - 75.0 % [facility] HemeAutoSS Neutrophils/Leukocyt es Auto (Bld) [Pure # fraction] 4.9 E9/L Normal 2.0 - 7.5 E9/L [facility] HemeAutoSS HEMATOLOGYOrdered By: Lucina Workman on 04-05-2023 Erythrocyte distribution width (RBC) [Ratio] 13.9 % Normal 10.9 - 14.2 % [facility] HemeAutoSS Hematocrit (Bld) [Volume fraction] 45.1 % Normal 37.7 - 49.0 % [facility]eAutoSS Hemoglobin (Bld) [Mass/Vol] 15.3 g/dL Normal 13.5 - 17.5 gm/dL [facility]eAutoSS MCH (RBC) [Entitic mass] 30.7 pg Normal 27.0 - 34.0 pg [facility]eAutoSS MCHC (RBC) [Mass/Vol] 34.0 g/dL Normal 31.4 - 36.0 gm/dL [facility] MCV (RBC) [Entitic vol] 90.2 fL Normal 80.0 - 100.0 fL [facility]eAutoSS Platelet mean volume (Bld) [Entitic vol] 8.9 fL Normal 6.4 - 10.8 fL [facility]eAutoSS Platelets (Bld) [#/Vol] 278.0 E9/L Normal 150.0 - 500.0 E9/L [facility]eAutoSS RBC (Bld) [#/Vol] 5.0 E12/L Normal 4.3 - 5.9 E12/L [facility]eAutoSS WBC corrected for nucl RBC Auto (Bld) [#/Vol] 7.4 E9/L Normal 4.0 - 11.0 E9/L [facility] HemeAutoSS PROF CHEM 8 (BAS METB)on Anion gap [Moles/Vol] 7.2 mmol/L Normal [facility] Comment on above: Performed By: #### B MP #### [facility] [address] [place] [address] Dr. Marky Ritter Calcium [Mass/Vol] 8.8 mg/dL Normal 8.5-10.1 [facility] Comment on above: Performed By: #### B MP #### [facility] [address] [address] [address] Marky Ritter Chloride [Moles/Vol] 101 mmol/L Normal 98-107 [facility] Comment on above: Performed By: #### B MP #### [facility] [address] [address] [address] Marky Ritter CO2 [Moles/Vol] 34.3 mmol/L Critically high 21.0-32.0 [facility] Comment on above: Performed By: #### B MP #### [facility] [address] [address] [address] Marky Ritter Creatinine [Mass/Vol] 0.99 mg/dL Normal 0.70-1.30 [facility] Comment on above: Performed By: #### B MP #### [facility] [address] [address] [address] Marky Ritter EGFR-AF BAHAMIAN >60 Normal >=60 [facility] Comment on above: Performed By: #### B MP #### [facility] [address] [address] [address] Marky Ritter EGFR-NON AF BAHAMIAN >60 Normal >=60 [facility] Comment on above: Performed By: #### B MP #### [facility] [address] [address] [address] Marky Ritter Glucose [Mass/Vol] 122 mg/dL Critically high 74-106 [place] Comment on above: Performed By: #### B MP #### [facility] [address] [place] [address] Dr. Marky Ritter Potassium [Moles/Vol] 4.5 mmol/L Normal 3.5-5.1 [facility] Comment on above: Performed By: #### B MP #### [facility] [address] [place] [address] Dr. Marky Ritter Sodium [Moles/Vol] 138 mmol/L Normal 136-145 [facility] Comment on above: Performed By: #### B MP #### [facility] [address] [address] [address] Marky Ritter Urea nitrogen [Mass/Vol] 14.0 mg/dL Normal 7.0-18.0 [facility] Comment on above: Performed By: #### B MP #### [facility] [address] [place] [address] Dr. Marky Ritter Urea nitrogen/Creatinine [Mass ratio] 14.1 mg/mg Normal [facility] Comment on above: Performed By: #### B #### [facility] [address] [place], [place] [address] Dr. Marky Ritter Office Visit (Cardiology)on 06-02-2022 Follow-up visit Diagnoses/Problems Assessed Benign essential hypertension (401.1) (I10) Morbid obesity with BMI of 40.0-44.9, adult (278.01,V85.41) (E66.01,Z68.41) Orders Benign essential hypertension Renew: amLODIPine Besylate 2.5 MG Oral Tablet; TAKE 1 TABLET DAILY DIRECTED Basic Metabolic Panel; Status:Active; Requested for:02Jun2022; Renew: Lisinopril-hydroCHLOROthia zide 20-25 MG Oral Tablet; TAKE 1 TABLET Daily Morbid obesity with BMI of 40.0-44.9, adult Healthy Weight Tips; Status:Complete; Done: 02Jun2022 Patient Instructions Please bring all medicines, vitamins, and herbal supplements with you when you come to the office. Prescriptions will not be filled unless you are compliant with your follow up appointments or have a follow up appointment scheduled as per instruction of your physician. Refills should be requested at the time of your visit. PLAN: Through informed decision making process incorporating patients unique circumstances, the following treatment plan will be initiated: 1. Prescription drug management of cardiovascular medication for efficacy, adherence to treatment, side effect assessment and polypharmacy. Current treatment clinically warranted and to continue without modifications. 2. Labs d/t BP meds 3. Make sure to f/u with PCP re: diabetes 4. If PCP will manage HTN it is ok to f/u with [facility] as needed Normal Cath and Normal LVEF Chief Complaint Annual f/u: 'doing fine' STEVIE MIKE is being seen for an annual follow-up of hypertension. Patient presents to the office today ambulatory with steady gait Last evaluated in clinic Dr. Ware September 2020. At that time he was to follow with [facility] on an as-needed basis. Presents to the office today in need of medication refills for antihypertensives. He does have a PCP but reportedly does not follow on a regular basis. He is on metformin but sometimes misses doses . Have reinforced the importance of establishment with PCP for preventative measures and also management of continued primary prevention for coronary artery disease. He reportedly will follow-up and schedule annual appointment. In the interim, he is out of antihypertensives and I will supply with refills and needed annual assessment of renal function due to ANAM inhibitor/diuretic use. Otherwise we review prior cardiovascular evaluation including a September 2020 cardiac cath with angiographically normal coronaries, LVEF 65%. He continues to be aerobically active without any type of concerns or limitations. Importance of primary prevention for CAD reinforced -especially diabetes and the consequences of uncontrolled diabetes. He will be contacting PCP. Recommend PCP for management of hypertension; if agreeable, patient can follow with [facility] on an as-needed basis. History of Present Illness The patient presents for follow-up of essential hypertension. The patient states he has been doing well with his blood pressure control since the last visit. Symptoms: denies impaired vision, denies dyspnea, denies chest pain, denies intermittent leg claudication and denies lower extremity edema. Associated symptoms include no headache. Medications: the patient is adherent with his medication regimen. He denies medication side effects. Current Meds Medication NameInstruction amLODIPine Besylate 2.5 MG Oral TabletTake 1 tablet daily Lisinopril-hydroCHLOROthia zide 20-25 MG Oral TabletTAKE 1 TABLET BY MOUTH EVERY DAY metFORMIN HCl - 500 MG Oral TabletTAKE 1 TABLET BY MOUTH EVERY DAY IN THE MORNING Allergies Medication No Known Drug Allergies Recorded By: Kita Marks; 01/18/2022 12:01:45 PM Social History Problems Consumes alcohol occasionally (V49.89) (Z78.9) Daily caffeine consumption, 2-3 servings a day Former smoker (V15.82) (Z87.891) quit 2009 No illicit drug use Review of Systems Constitutional: not feeling tired. Cardiovascular: no chest pain, no palpitations and no lower extremity edema. Respiratory: no shortness of breath during exertion, no orthopnea and no PND. Vitals Vital Signs Recorded: 02Jun2022 02:03PM Heart Rate76, L Radial [id number], LUE, Sitting [id number], LUE, Sitting Height6 ft 4 in Dxxmhj521 lb BMI Feakuadoyj85.97 kg/m2 BSA Calculated2.82 Tobacco Useb) No PHQ-2 #1. Over the last 2 weeks have you felt down, depressed or hopeless? (If yes, answer PHQ-9 below)No PHQ-2 #2. Over the last 2 weeks have you felt little interest or pleasure in doing things? (If yes, answer PHQ-9 below)No Physical Exam Constitutional: alert and in no acute distress. Neck: neck is supple, symmetric, trachea midline, no masses . Pulmonary: no increased work of breathing or signs of respiratory distress and lungs clear to auscultation. Cardiovascular: JVP was normal, regular rhythm, normal S1 and S2, no murmurs and no edema . Abdomen: abdomen non-tender, no masses . Skin: skin warm and dry, normal skin turgor . Psychiatric oriented to person, place and time and (more content not included)... [employer] Tobacco Screening.on 022 Adult depression screening assessment No Tag [facility] DO Work Phone: Tobacco use status [facility] b) No Tag & [facility]ood[facility]VoxBarn[facility] Hospital[facility] DO Work Phone: Activated partial thrombopla stin time (aPTT) in platelet poor plasma by coagulation aon 09-22-2020 aPTT Coag (PPP) [Time] 31.2 s 25.1-36.5 [facility] Automated basophil %on 09-22 Basophils/100 WBC (Bld) 0.7 % [facility] Automated basophil counton 0 09-22-2020 Basophils (Bld) [#/Vol] 0.0 10*3/uL 0.0-0.2 [facility] Automated blood lymphocyte c ount (number/volume)on 09-22-2020 Lymphocytes (Bld) [#/Vol] 1.1 10*3/uL 1.00-4.8 [facility] Automated blood lymphocyte c ount as percentage of total leukocyteson 09-22-2020 Lymphocytes/100 WBC (Bld) 17.6 % [facility] Automated blood monocyte cou nton 09-22-2020 Monocytes (Bld) [#/Vol] 0.4 10*3/uL 0.0-0.8 [facility] Automated blood platelet cou nt (count/volume)on 09-22-2020 Platelets (Bld) [#/Vol] 241 10*3/uL 150-450 [facility] Automated blood platelet alverto n volume measurementon 09-22-2020 Platelet mean volume (Bld) [Entitic vol] 9.4 fL 6.6-10.1 [facility] Automated eosinophil %on Eosinophils/100 WBC (Bld) 1.0 % [facility] Automated eosinophil counton 09-22-2020 Eosinophils (Bld) [#/Vol] 0.1 10*3/uL 0.0-0.45 [facility] Automated erythrocyte distri bution width ratioon 09-22-2020 Erythrocyte distribution width (RBC) [Ratio] 13.1 % 12.0-14.8 [facility] Automated erythrocyte mean c orpuscular hemoglobin (mass per erythrocyte)on 09-22-2020 MCH (RBC) [Entitic mass] 30.2 pg 27.5-35.2 [facility] Automated erythrocyte mean c orpuscular hemoglobin concentration measurement (mass/volon 09-22-2020 MCHC (RBC) [Mass/Vol] 33.3 g/dL 32.5-35.6 [facility] Automated erythrocyte mean c orpuscular volumeon 09-22-2020 MCV (RBC) [Entitic vol] 90.7 fL 83.5-101 [facility] Automated monocyte %on 09-22 Monocytes/100 WBC (Bld) 6.5 % [facility] Automated neutrophil %on Neutrophils/100 WBC (Bld) 74.2 % [facility] Blood Urea Nitrogenon 2020 Urea nitrogen [Mass/Vol] 13 mg/dL Normal 04-22 [facility] Comment on above: Performed By: #### L IPID, PP, CREAT, BUN, CBC, LYTES #### [facility] [address] Blood erythrocytes automated count (number/volume)on 09-22-2020 RBC (Bld) [#/Vol] 4.80 10*6/uL 3.90-5.60 [facility] Blood hemoglobin measurement (mass/volume)on 09-22-2020 Hemoglobin (Bld) [Mass/Vol] 14.5 g/dL 13.0-17.0 [facility] Blood leukocytes automated c ount (number/volume)on 09-22-2020 WBC (Bld) [#/Vol] 6.1 10*3/uL 4.5-11.0 [facility] Blood neutrophil count by au tomated method (number/volume)on 09-22-2020 Neutrophils (Bld) [#/Vol] 4.5 10*3/uL 1.8-7.7 [facility] Cholesterol [Mass/volume] in Serum or Plasmaon 09-22-2020 Cholesterol [Mass/Vol] 185 mg/dL 140-200 [facility] Comment on above: Chol less than 200 m g/dl low riskChol 201-239 mg/dl borderline riskChol 240 mg/dl and greater high risk Cholesterol in LDL [Mass/vol ume] in Serum or Plasma by calculationon 09-22-2020 Cholesterol in LDL [Mass/Vol] 126 mg/dL 0-100 [facility] Comment on above: LDL ATP III CLASSIFI CATIONLDL less than 100 mg/dL OptimalLDL 100-129 mg/dL Near or above optimalLDL 130-159 mg/dL Borderline highLDL 160-189 mg/dL HighLDL greater than 189 mg/dL Very high Cholesterol in VLDL [Mass/vo lume] in Serum or Plasma by calculationon 09-22-2020 Cholesterol in VLDL [Mass/Vol] 15 mg/dL [facility] Coagulation Profileon 2020 aPTT Coag (Bld) [Time] 31.2 s Normal 25.1-36.5 [facility] Comment on above: Result Comment: PERF ORMED BY: [place] [address] [facility] [employer]HEN M.D. Performed By: #### L IPID, PP, CREAT, BUN, CBC, LYTES #### [address] INR Coag (PPP) [Relative time] 1.1 {INR} Normal [facility] Comment on above: Result Comment: INR Therapeutic Range A) Pre- and Peroperative OAT started two weeks before surgery. NOT HIP SURGERY: 1.5 - 2.5 HIP SURGERY: 2 - 3 B) Primary and secondary prevention of venous THROMBOSIS: 2 - 3 C) Active venous thrombosis, pulmonary embolism and prevention of recurrent venous thrombosis: 2 - 3 D) Prevention of arterial thromboembolism including patients with mechanical heart valves: 3 - 4.5 Performed By: #### L IPID, PP, CREAT, BUN, CBC, LYTES #### [address] PT Coag (PPP) [Time] 12.2 s Normal 9.0-12.9 [facility] Comment on above: Performed By: #### L IPID, PP, CREAT, BUN, CBC, LYTES #### [address] Complete Blood Count Auto Di ffon 09-22-2020 Basophils (Bld) [#/Vol] 0.0 10*3/uL Normal 0.0-0.2 [facility] Comment on above: Result Comment: PERF ORMED BY: [place] [address] [facility] [employer]HEN M.D. Performed By: #### L IPID, PP, CREAT, BUN, CBC, LYTES #### [address] Basophils/100 WBC (Bld) 0.7 % Normal . [facility] Comment on above: Performed By: #### L IPID, PP, CREAT, BUN, CBC, LYTES #### [address] Eosinophils (Bld) [#/Vol] 0.1 10*3/uL Normal 0.0-0.45 [facility] Comment on above: Performed By: #### L IPID, PP, CREAT, BUN, CBC, LYTES #### [address] Eosinophils/100 WBC (Bld) 1.0 % Normal . [facility] Comment on above: Performed By: #### L IPID, PP, CREAT, BUN, CBC, LYTES #### [address] Erythrocyte distribution width (RBC) [Ratio] 13.1 % Normal 12.0-14.8 [facility] Comment on above: Performed By: #### L IPID, PP, CREAT, BUN, CBC, LYTES #### [address] Hematocrit (Bld) [Volume fraction] 43.6 % Normal 38.8-50.0 [facility] Comment on above: Performed By: #### L IPID, PP, CREAT, BUN, CBC, LYTES #### [address] Hemoglobin (Bld) [Mass/Vol] 14.5 g/dL Normal 13.0-17.0 [facility] Comment on above: Performed By: #### L IPID, PP, CREAT, BUN, CBC, LYTES #### [address] Lymphocytes (Bld) [#/Vol] 1.1 10*3/uL Normal 1.00-4.8 [facility] Comment on above: Performed By: #### L IPID, PP, CREAT, BUN, CBC, LYTES #### [address] Lymphocytes/100 WBC (Bld) 17.6 % Normal . [facility] Comment on above: Performed By: #### L IPID, PP, CREAT, BUN, CBC, LYTES #### [address] MCH (RBC) [Entitic mass] 30.2 pg Normal 27.5-35.2 [facility] Comment on above: Performed By: #### L IPID, PP, CREAT, BUN, CBC, LYTES #### [address] MCV (RBC) [Entitic vol] 90.7 fL Normal 83.5-101 [facility] Comment on above: Performed By: #### L IPID, PP, CREAT, BUN, CBC, LYTES #### [address] Mean Corpuscular HGB Conc 33.3 g/dL Normal 32.5-35.6 [facility] Comment on above: Performed By: #### L IPID, PP, CREAT, BUN, CBC, LYTES #### [facility] [address] Monocytes (Bld) [#/Vol] 0.4 10*3/uL Normal 0.0-0.8 [facility] Comment on above: Performed By: #### L IPID, PP, CREAT, BUN, CBC, LYTES #### [address] Monocytes/100 WBC (Bld) 6.5 % Normal . [facility] Comment on above: Performed By: #### L IPID, PP, CREAT, BUN, CBC, LYTES #### [address] Neutrophils (Bld) [#/Vol] 4.5 10*3/uL Normal 1.8-7.7 [facility] Comment on above: Performed By: #### L IPID, PP, CREAT, BUN, CBC, LYTES #### [address] Neutrophils/100 WBC (Bld) 74.2 % Normal . [facility] Comment on above: Performed By: #### L IPID, PP, CREAT, BUN, CBC, LYTES #### [facility] [address] [place] [address] [place] Nucleated RBC/100 WBC (Bld) [Ratio] 0.0 % Normal 0-0.5 [facility] Comment on above: Performed By: #### L IPID, PP, CREAT, BUN, CBC, LYTES #### [address] Platelet mean volume (Bld) [Entitic vol] 9.4 fL Normal 6.6-10.1 [facility] Comment on above: Performed By: #### L IPID, PP, CREAT, BUN, CBC, LYTES #### [facility] [address] Platelets (Bld) [#/Vol] 241 10*3/uL Normal 150-450 [facility] Comment on above: Performed By: #### L IPID, PP, CREAT, BUN, CBC, LYTES #### [address] RBC (Bld) [#/Vol] 4.80 10*6/uL Normal 3.90-5.60 [facility] Comment on above: Performed By: #### L IPID, PP, CREAT, BUN, CBC, LYTES #### [address] WBC (Bld) [#/Vol] 6.1 10*3/uL Normal 4.5-11.0 [facility] Comment on above: Performed By: #### L IPID, PP, CREAT, BUN, CBC, LYTES #### [address] Creatinineon 09-22-2020 Creatinine [Mass/Vol] 0.97 mg/dL Normal 0.64-1.27 [facility] Comment on above: Performed By: #### L IPID, PP, CREAT, BUN, CBC, LYTES #### [address] Estimated GFR ( Julee > 60 Normal [facility] Comment on above: Result Comment: GFR estimated reference range: According to KDOQI guidelines, <60 ml/min/1.73m2 is sufficient to diagnose a patient with chronic kidney disease. Performed By: #### L IPID, PP, CREAT, BUN, CBC, LYTES #### [address] Estimated GFR (Non- Am > 60 Normal [facility] Comment on above: Performed By: #### L IPID, PP, CREAT, BUN, CBC, LYTES #### [address] ECG 12 lead ECGon 09-22-2020 ECG 12 lead ECG [facility] [place] [address] [place] [address] Electrocardiograph Report Signed Patient: Stevie Mike MR#: [id number] : 1975 Acct:[id number] Age/Sex: 44 / M ADM Date: 09/22/20 Loc: Room: Type: [facility] Attending Dr: Mumtaz Bone MD Ordering Provider: Mumtaz Bone MD Date of Service: 09/22/20 ECG/ECG 12 lead ECG: pre op Copies to: Test Reason : Blood Pressure : / mmHG Vent. Rate : 076 BPM Atrial Rate : 076 BPM P-R Int : 148 ms QRS Dur : 096 ms QT Int : 362 ms P-R-T Axes : 029 -21 033 degrees QTc Int : 407 ms Normal sinus rhythm Normal ECG When compared with ECG of 05-MAR-2019 07:12, No significant change was found Confirmed by BRIANA ZALDIVAR DO ([id number]) on 09/22/2020 12:13:26 PM Referred By: GEMMA Electronically Signed By:BRIANA ZALDIVAR DO Transcribed By: MUS Dictated By: Briana Zaldivar DO 09/22/20 09 Signed By: 09/22/20 1213 Normal [facility] Electrolyteson 09-22-2020 Chloride [Moles/Vol] 99 mmol/L Normal 95-114 [facility] Comment on above: Performed By: #### L IPID, PP, CREAT, BUN, CBC, LYTES #### [facility] [address] [place] [address] [place] CO2 [Moles/Vol] 28.8 mmol/L Normal 22.0-30.0 [facility] Comment on above: Performed By: #### L IPID, PP, CREAT, BUN, CBC, LYTES #### [facility] [address] Potassium [Moles/Vol] 4.3 mmol/L Normal 3.5-5.1 [facility] Comment on above: Performed By: #### L IPID, PP, CREAT, BUN, CBC, LYTES #### [facility] [address] Sodium [Moles/Vol] 138 mmol/L Normal 136-146 [facility] Comment on above: Performed By: #### L IPID, PP, CREAT, BUN, CBC, LYTES #### [facility] [address] Estimated glomerular filtrat ion rate (GFR) non- Americanon 09-22-2020 GFR/1.73 sq M predicted among non-blacks MDRD (S/P/Bld) [Vol rate/Area] mL/min/{1.73_m2} [facility] Hematocrit [Volume Fraction] of Blood by Automated counton 09-22-2020 Hematocrit (Bld) [Volume fraction] 43.6 % 38.8-50.0 [facility] Hematologyon 09-22-2020 PT Coag (PPP) [Time] 12.2 s 9.0-12.9 [facility] Lipid Panelon 09-22-2020 Cholesterol [Mass/Vol] 185 mg/dL Normal 140-200 [facility] Comment on above: Result Comment: Chol less than 200 mg/dl low risk Chol 201-239 mg/dl borderline risk Chol 240 mg/dl and greater high risk Performed By: #### L IPID, PP, CREAT, BUN, CBC, LYTES #### [address] Cholesterol in HDL [Mass/Vol] 44 mg/dL Normal 29-71 [facility] Comment on above: Result Comment: HDL CHOL ATP-III CLASSIFICATION Cardiovascular Risk HDL > or equal to 60 mg/dL LOW HDL < 40 mg/dL HIGH Performed By: #### L IPID, PP, CREAT, BUN, CBC, LYTES #### [facility] [address] Cholesterol.total/Ch olesterol in HDL [Mass ratio] 4.2 {ratio} Normal <5.0 [facility] Comment on above: Result Comment: PERF ORMED BY: [place] [address] [facility] [employer] CASS COHEN M.D. Performed By: #### L IPID, PP, CREAT, BUN, CBC, LYTES #### [facility] [address] LDL Cholesterol,Calculat ed 126 mg/dL High 0-100 [facility] Comment on above: Result Comment: LDL ATP III CLASSIFICATION LDL less than 100 mg/dL Optimal LDL 100-129 mg/dL Near or above optimal LDL 130-159 mg/dL Borderline high LDL 160-189 mg/dL High LDL greater than 189 mg/dL Very high Performed By: #### L IPID, PP, CREAT, BUN, CBC, LYTES #### [facility] [address] Triglyceride w/Reflex 77 mg/dL Normal 35-149 [facility] Comment on above: Result Comment: TRIG ATP III CLASSIFICATION TRIG less than 150 mg/dL Normal TRIG 150-199 mg/dL Borderline high TRIG 200-500 mg/dL High TRIG greater than 500 mg/dL Very high Standard traceable to the Center for Disease Conrtrol and Prevention (CDC) test method. Performed By: #### L IPID, PP, CREAT, BUN, CBC, LYTES #### [facility] [address] VLDL CHOLESTEROL 15 mg/dL Normal [facility] Comment on above: Performed By: #### L IPID, PP, CREAT, BUN, CBC, LYTES #### [facility] [address] Otheron 09-22-2020 GFR/1.73 sq M.predicted MDRD (S/P/Bld) [Vol rate/Area] mL/min/{1.73_m2} [facility] Comment on above: GFR estimated refere nce range: According to KDOQI guidelines, <60 ml/min/1.73m2 is sufficient to diagnose a patient with chronic kidney disease. Nucleated RBC/100 WBC (Bld) [Ratio] 0.0 % 0-0.5 [facility] Creatinine Clearance (Chem N/A [facility] Platelet poor plasma interna tional normalized ratio (INR) by coagulation assay (relaton 09-22-2020 INR Coag (PPP) [Relative time] 1.1 {INR} [facility] Comment on above: INR Therapeutic Rang e A) Pre- and Peroperative OAT started two weeks before surgery. NOT HIP SURGERY: 1.5 - 2.5 HIP SURGERY: 2 - 3B) Primary and secondary prevention of venous THROMBOSIS: 2 - 3C) Active venous thrombosis, pulmonary embolismand prevention of recurrent venous thrombosis: 2 - 3D) Prevention of arterial thromboembolismincluding patients with mechanical heart valves: 3 - 4.5 Serum or plasma chloride alverto surement (moles/volume)on 09-22-2020 Chloride [Moles/Vol] 99 mmol/L 95-114 [facility] Serum or plasma creatinine m easurement with calculation of estimated glomerular filtron 09-22-2020 Creatinine [Mass/Vol] 0.97 mg/dL 0.64-1.27 [facility] Serum or plasma high density lipoprotein (HDL) cholesterol measurementon 09-22-2020 Cholesterol in HDL [Mass/Vol] 44 mg/dL 29-71 [facility] Comment on above: HDL CHOL ATP-III CLA SSIFICATION Cardiovascular RiskHDL > or equal to 60 mg/dL LOWHDL < 40 mg/dL HIGH Serum or plasma potassium me asurement (moles/volume)on 09-22-2020 Potassium [Moles/Vol] 4.3 mmol/L 3.5-5.1 [facility] Serum or plasma sodium measu rement (moles/volume)on 09-22-2020 Sodium [Moles/Vol] 138 mmol/L 136-146 [facility] Serum or plasma total carbon dioxide measurement (moles/volume)on 09-22-2020 CO2 [Moles/Vol] 28.8 mmol/L 22.0-30.0 [facility] Serum or plasma total choles terol/high density lipoprotein (HDL) cholesterol mass gerry 09-22-2020 Cholesterol.total/Ch olesterol in HDL [Mass ratio] 4.2 {ratio} [facility] Serum or plasma urea nitroge n measurement (mass/volume)on 09-22-2020 Urea nitrogen [Mass/Vol] 13 mg/dL 04-22 [facility] Triglyceride [Mass/volume] i n Serum or Plasmaon 09-22-2020 Triglyceride [Mass/Vol] 77 mg/dL 35-149 [facility] Comment on above: TRIG ATP III CLASSIF ICATIONTRIG less than 150 mg/dL NormalTRIG 150-199 mg/dL Borderline highTRIG 200-500 mg/dL High TRIG greater than 500 mg/dL Very highStandard traceable to the Center for Disease Conrtrol and Prevention (CDC) test method. Vital Signs Date Time Vital Sign Value Performing Clinician Faci lity 04-25-2024 16:33-0400 Diastolic blood pressure 84 mm[Hg] Manan Medrano MD Work Phone: [facility] 04-25-2024 16:33-0400 Systolic blood pressure 136 mm[Hg] Manan Medrano MD Work Phone: [facility] 04-25-2024 16:07-0400 Body height 193 cm Manan Medrano MD Work Phone: [facility] 04-25-2024 16:07-0400 Body mass index (BMI) [Ratio] 39.93 kg/m2 Manan Medrano MD Work Phone: [facility] 04-25-2024 16:07-0400 Body weight 148.78 kg Manan Medrano MD Work Phone: [facility] 04-25-2024 16:07-0400 Heart rate 72 /min Manan Medrano MD Work Phone: [facility] 11-24-2023 08:38-0400 Diastolic blood pressure 96 mm[Hg] Manan Medrano MD Work Phone: [facility] 11-24-2023 08:38-0400 Systolic blood pressure 130 mm[Hg] Manan Medrano MD Work Phone: [facility] 11-24-2023 08:33-0400 Body height 193 cm Manan Medrano MD Work Phone: [facility] 11-24-2023 08:33-0400 Body mass index (BMI) [Ratio] 43.09 kg/m2 Manan Medrano MD Work Phone: [facility] 11-24-2023 08:33-0400 Body weight 160.57 kg Manan Medrano MD Work Phone: [facility] 11-24-2023 08:33-0400 Heart rate 80 /min Manan Medrano MD Work Phone: [facility] 10-25-2023 15:17-0400 Body height 193 cm Manan Medrano MD Work Phone: [facility] 10-25-2023 15:17-0400 Body mass index (BMI) [Ratio] 42.24 kg/m2 Manan Medrano MD Work Phone: [facility] 10-25-2023 15:17-0400 Body weight 157.4 kg Manan Medrano MD Work Phone: [facility] 10-25-2023 15:17-0400 Diastolic blood pressure 94 mm[Hg] Manan Medrano MD Work Phone: [facility] 10-25-2023 15:17-0400 Heart rate 88 /min Manan Medrano MD Work Phone: [facility] 10-25-2023 15:17-0400 Systolic blood pressure 132 mm[Hg] Manan Medrano MD Work Phone: [facility] 06-02-2022 14:03-0400 Body height 193.04 cm Mellissa Salazar Work Phone: [facility] 600 DO Work Phone: 06-02-2022 14:03-0400 Body mass index (BMI) [Ratio] 42.97 kg/m2 Mellissa Salazar Work Phone: [facility] 600 DO Work Phone: 06-02-2022 14:03-0400 Body surface area Derived from formula 2.82 m2 Mellissa Salazar Work Phone: [facility] 600 DO Work Phone: 06-02-2022 14:03-0400 Body weight 160.12 kg Mellissa Salazar Work Phone: [facility] 600 DO Work Phone: 06-02-2022 14:03-0400 Diastolic blood pressure 92 mm[Hg] Mellissa Salazar Work Phone: [facility] 600 DO Work Phone: 06-02-2022 14:03-0400 Heart rate 76 /min Mellissa Salazar Work Phone: [facility] 600 DO Work Phone: 06-02-2022 14:03-0400 Systolic blood pressure 138 mm[Hg] Mellissa Salazar Work Phone: [facility] 600 DO Work Phone: Encounters Encounter Date Encounter Type Care Provider Facility Start: 09-25-2024 ambulatory Kristie L Tianna Facility: [facility] Start: 06-11-2024 End: 06-11-2024 ambulatory Kristie L Tianna Facility:[facility] Start: 04-25-2024 End: 04-25-2024 Office outpatient visit 15 minutes Manan Medrano MD Work Phone: [facility] Comment on above: Benign essential hyp ertension; BMI 39.0-39.9,adult; Former smoker Start: 04-25-2024 End: 04-25-2024 ambulatory [facility] Start: 02-27-2024 End: 02-27-2024 ambulatory Kristie L Tianna Facility:[facility] Start: 11-24-2023 End: 11-24-2023 Office outpatient visit 10 minutes Manan Medrano MD Work Phone: [facility] Comment on above: Benign essential hyp ertension Start: 11-24-2023 End: 11-24-2023 ambulatory [facility] Start: 10-25-2023 End: 10-25-2023 Office outpatient visit 15 minutes Manan Medrano MD Work Phone: [facility] Comment on above: Benign essential hyp ertension (Primary Dx); Morbid obesity with body mass index (BMI) of 40.0 to 44.9 in adult ([facility]); Former smoker; Metabolic syndrome Start: 10-25-2023 End: 10-25-2023 ambulatory [facility] Start: 10-16-2023 End: 10-16-2023 ambulatory Kristie L Tianna Facility:[facility] Start: 10-11-2023 End: 10-11-2023 ambulatory Kristie L Tianna Facility:[facility] Start: 10-05-2023 End: 10-05-2023 Lab Drop off ITZ Dino CULLEN [facility] Start: 10-05-2023 End: 10-05-2023 ambulatory ITZ A ALYSE Facility:[facility] Start: 04-05-2023 End: 04-05-2023 Lab Drop off Kristie L Tianna [facility] Start: 07-16-2022 End: 07-17-[address] MELLISSA SALAZAR . Facility: Start: 06-02-2022 Office outpatient vi sit 15 minutes Mellissa Salazar Work Phone: [facility] 600 DO Work Phone: Start: 06-02-2022 ambulatory Mellissa Salazar Facil ity: Start: 04-28-2022 Rx Renewal Mumtaz hernandez MD Work Phone: [facility] 250 DO Work Phone: Start: 01-18-2022 Rx Renewal Mumtaz hernandez MD Work Phone: [facility] 250 DO Work Phone: Start: 09-13-2021 Rx Renewal Mumtaz hernandez MD Work Phone: -[facility] 250 DO Work Phone: Start: 09-22-2020 End: 09-22-2020 Patient encounter procedure Mellissa Salazar -Pre-Surgical Testing Procedures Date Procedure Procedure Detail Performing Clinician Start: 11-24-2023 FOLLOW UP IN CARDIOLOGY MANAN MEDRANO Hernia repair Mellissa Salazar Work Phone: Herniated structure (morphologic abnormality) Kristie Tianna Comment on above: had 2 of them NEGATED: Highlighted row has not occurred! Colonoscopy Mellissa Salazar Work Phone: Plan of Treatment Date Care Activity Detail Author Start: 2026 Zoster Vaccines (1 of 2) Zoste r Vaccines (1 of 2) [facility] Start: 01-27-2025 End: 01-27-2025 Patient encounter procedure 01/27/2025 8:30 AM EDT Office Visit [address] [id number] Manan Medrano MD [address] [facility], [place] [address] [place] [id number] [facility] Start: 04-25-2024 End: 04-25-2024 Patient encounter procedure 04/25/2024 3:50 PM EDT Office Visit [address] [place] [address] Manan Medrano MD [address] [facility], [address] [place], [place] [address] 522- [facility] Start: 03-31-2024 COVID-19 Vaccine ( season) COVID-19 Vaccine ( season) [facility] Start: 03-31-2024 Influenza vaccination [facility] Start: 03-31-2023 COVID-19 Vaccine ( season) COVID-19 Vaccine () [facility] Start: 03-31-2023 Influenza vaccination Influenza Vacc ine (#1) [facility] Start: 06-02-2022 FUV, Provider: Gutierrez Reid, Status: Pen, Time: 2:00 PM FUV, Provider: Gutierrez Reid, Status: Pen, Time: 2:00 PM [facility] [employer] [facility] 250 DO Work Phone: Start: 03-10-2022 FUV, Provider: Gutierrez Reid, Status: Pen, Time: 3:00 PM FUV, Provider: Gutierrez Reid, Status: Pen, Time: 3:00 PM [facility] [employer] 250 DO Work Phone: Start: 1998 DTaP/Tdap/Td Vaccine s (1 - Tdap) DTaP/Tdap/Td Vaccines (1 - Tdap) [facility] Start: 11-19-1995 Hepatitis B Vaccines (1 of 3 - 19+ 3-dose series) Hepatitis B Vaccines (1 of 3 - 19+ 3-dose series) [facility] Start: 1994 Diabetes mellitus screening Diabetes Screening [facility] Start: 1994 Hepatitis C screening Hepatitis C Sc reening [facility] Start: 1977 MMR Vaccines (1 of 1 - Standard series) MMR Vaccines (1 of 1 - Standard series) [facility] Start: 05-20-1977 COVID-19 Vaccine (#1) COVID-19 Vacci ne (#1) [facility] Start: 1976 Hepatitis B Vaccines (1 of 3 - 3-dose series) Hepatitis B Vaccines (1 of 3 - 3-dose series) [facility] Start: 1976 HIV screening HIV Screening [facility] Start: 1976 Lipid panel Lipid Panel [facility] Start: 1976 Screening for malign ant neoplasm of colon [facility] Start: 1976 Yearly Adult Physical Yearly Adult P hysical [facility] Payers Date Payer Category Payer Unknown 2021 Unknown [id number] 1975 Unknown [id number] 2.16. [id number] 1975 Unknown [id number] 2.16.84 [id number] 1975 Unknown [id number] 2.16. [id number] 1975 Unknown [id number] 2.16.8 [id number] 1975 Unknown [id number] 2.16.8 [id number] 1975 Unknown [id number] 2.16.8 [id number] 1975 Unknown [id number] 2.16.8 [id number] 1975 Unknown [id number] 2.16.8 [id number] 1975 Unknown [id number] 2.16.8 [id number] 1975 Unknown [id number] 2.16.8 [id number] 1975 Unknown [id number] 2.16.8 [id number] 1975 Unknown [id number] 2.16.8 [id number] 1958 Self-pay [id number] Private Health Insurance Self Pay [id number] Unknown Self Pay [id number] Unknown [id number] Social History Date Type Detail Facility Start: 09-22-2020 End: 11-24-2023 Tobacco smoking status NHIS Ex-smoker (finding) [facility] Start: 1975 Sex Assigned At Male F [facility] Start: 10-25-2023 End: 11-24-2023 No illicit drug use No illicit drug use -[facility] 600 DO Work Phone: Comment on above: quit 2009; Start: 10-25-2023 End: 11-24-2023 Sex Assigned At Male Polo Goldberg [facility] End: 07-31-2007 History of tobacco use Current smoker [facility] Work Phone: End: 07-31-2007 History of tobacco use Cigarette Smoker [facility] Work Phone: Start: 10-25-2023 End: 11-24-2023 Tobacco use and exposure Former smokeless tobacco user [facility] Work Phone: End: 07-31-2017 History of tobacco use Chews Tobacco [facility] Work Phone: Start: 10-25-2023 End: 04-25-2024 Alcohol intake Current drinker of alcohol (finding) [facility] Work Phone: Start: 1975 Sex Assigned At Not on file [facility] Work Phone: Start: 10-15-2023 End: 04-25-2024 Exposure to SARS-CoV-2 (event) Not sure [facility] Start: 04-25-2024 Alcohol Comment few nights a week Un [facility] Work Phone: Goals Date Patient Goal Desired Activity /State Clinical Notes 04-05-2023 to 04-25-2024 Manan Medarno MD - 04/25/2024 3:50 PM EDTPatient InstructionsManan Medrano MD - 11/24/2023 8:30 AM Mar Medrano MD - 11/24/2023 8:30 AM EDTPatient Instructions Note Date & Type Note Facility 04-25-2024 History of Present illness Narrative Subjective Stevie Mike is a 48 y.o. male Chief Complaint Follow-up HPI Patient is here for follow-up and to management for hypertension, obesity, and metabolic syndrome. Since last time I saw him he reports he is feeling well. He denies any cardiac complaint chest pain, palpitation, lightheadedness, dizziness or syncope. Since last time I saw him he lost close to 25 pounds. His recent laboratory data noted and reviewed with him Assessment 1. Hypertension well-controlled 2. Morbid obesity with recent 25 pound weight loss 3. Glucose intolerance 4. Metabolic syndrome Plan 1. I counseled the patient at great length regarding nonpharmacologic approach for management of hypertension including DASH diet, low-salt, exercise, increasing fluid intake and weight loss 2. I advised him to continue present medical regimen and to continue to monitor his blood pressure 3. I we will see him back in 9 months and follow-up 4. I did review with him his recent lab work Review of Systems All other systems reviewed and are negative. Vitals: 04/25/24 1607 04/25/24 1633 BP: 152/88 136/84 BP Location: Left arm Patient Position: Sitting Pulse: 72 Weight: 149 kg (328 lb) Height: 1.93 m (6' 4 ) Objective Physical Exam Constitutional: Appearance: Normal appearance. HENT: Nose: Nose normal. Neck: Vascular: No carotid bruit. Cardiovascular: Rate and Rhythm: Normal rate. Pulses: Normal pulses. Heart sounds: Normal heart sounds. Pulmonary: Effort: Pulmonary effort is normal. Abdominal: General: Bowel sounds are normal. Palpations: Abdomen is soft. Musculoskeletal: General: Normal range of motion. Cervical back: Normal range of motion. Right lower leg: No edema. Left lower leg: No edema. Skin: General: Skin is warm and dry. Neurological: General: No focal deficit present. Mental Status: He is alert. Psychiatric: Mood and Affect: Mood normal. Behavior: Behavior normal. Thought Content: Thought content normal. Judgment: Judgment normal. Allergies Patient has no known allergies. Current Medications Current Outpatient Medications: amLODIPine (Norvasc) 5 mg tablet, Take 1 tablet (5 mg) by mouth once daily., Disp: 30 tablet, Rfl: 11 lisinopriL-hydrochlorothiazide 20-25 mg tablet, Take 1 tablet by mouth once daily., Disp: , Rfl: metFORMIN (Glucophage) 500 mg tablet, Take 1 tablet (500 mg) by mouth 2 times a day., Disp: , Rfl: Assessment/Plan 1. Benign essential hypertension Follow Up In Cardiology Follow Up In Cardiology 2. BMI 39.0-39.9,adult 3. Former smoker Scribe Attestation By signing my name below, Becky Irvin LPN, Scribe attest that this documentation has been prepared under the direction and in the presence of Manan Medrano MD. Provider Attestation - Scribe documentation All medical record entries made by the Scribe were at my direction and personally dictated by me. I have reviewed the chart and agree that the record accurately reflects my personal performance of the history, physical exam, discussion and plan. documented in this encounter [facility] Work Phone: 04-25-2024 Instructions Becky Chapa LPN - 04/25/2024 3:50 PM EDT Please bring all medicines, vitamins, and herbal supplements with you when you come to the office. Prescriptions will not be filled unless you are compliant with your follow up appointments or have a follow up appointment scheduled as per instruction of your physician. Refills should be requested at the time of your visit. BMI was above normal measurement. Current weight: 149 kg (328 lb) Weight change since last visit (-) denotes wt loss -26 lbs Weight loss needed to achieve BMI 25: 123 Lbs Weight loss needed to achieve BMI 30: 82.1 Lbs Provided instructions on dietary changes Provided instructions on exercise. documented in this encounter [facility] Work Phone: 11-24-2023 History of Present illness Narrative Ezequiel Mike is a 48 y.o. male Chief Complaint Hypertension; Blood Pressure Check HPI See duplicate note ROS Vitals: 11/24/23 0833 11/24/23 0838 BP: 138/88 (!) 130/96 BP Location: Right arm Right arm Patient Position: Sitting Sitting Pulse: 80 Weight: (!) 161 kg (354 lb) Height: 1.93 m (6' 4 ) Objective Physical Exam Allergies Patient has no known allergies. Current Medications Current Outpatient Medications: amLODIPine (Norvasc) 5 mg tablet, Take 1 tablet (5 mg) by mouth once daily., Disp: 30 tablet, Rfl: 11 lisinopriL-hydrochlorothiazide 20-25 mg tablet, Take 1 tablet by mouth once daily., Disp: , Rfl: metFORMIN (Glucophage) 500 mg tablet, Take 1 tablet (500 mg) by mouth 2 times a day., Disp: , Rfl: Assessment/Plan 1. Benign essential hypertension Follow Up In Cardiology Scribe Attestation By signing my name below, Irhianna , Scribe attest that this documentation has been prepared under the direction and in the presence of Manan Medrano MD. Provider Attestation - Scribe documentation All medical record entries made by the Scribe were at my direction and personally dictated by me. I have reviewed the chart and agree that the record accurately reflects my personal performance of the history, physical exam, discussion and plan. Ezequiel Mike is a 48 y.o. male Chief Complaint Hypertension; Blood Pressure Check Hypertension Patient is here for follow-up continue management for hypertension. Last office visit his blood pressure was elevated. We did increase his amlodipine. He reports he feels better. His blood pressure at home is well-controlled. 1. Hypertension well-controlled Plan 1. Continue present medical regimen 2. Continue to emphasize the importance of nonpharmacologic approach-diet for management of hypertension ROS Vitals: 11/24/23 0833 11/24/23 0838 BP: 138/88 (!) 130/96 BP Location: Right arm Right arm Patient Position: Sitting Sitting Pulse: 80 Weight: (!) 161 kg (354 lb) Height: 1.93 m (6' 4 ) Objective Physical Exam Allergies Patient has no known allergies. Current Medications Current Outpatient Medications: amLODIPine (Norvasc) 5 mg tablet, Take 1 tablet (5 mg) by mouth once daily., Disp: 30 tablet, Rfl: 11 lisinopriL-hydrochlorothiazide 20-25 mg tablet, Take 1 tablet by mouth once daily., Disp: , Rfl: metFORMIN (Glucophage) 500 mg tablet, Take 1 tablet (500 mg) by mouth 2 times a day., Disp: , Rfl: Assessment/Plan 1. Benign essential hypertension Follow Up In Cardiology Scribe Attestation By signing my name below, I, Becky Gonzales LPN ] , Scribe attest that this documentation has been prepared under the direction and in the presence of Manan Medrano MD. Provider Attestation - Scribe documentation All medical record entries made by the Scribe were at my direction and personally dictated by me. I have reviewed the chart and agree that the record accurately reflects my personal performance of the history, physical exam, discussion and plan. [facility] Work Phone: 11-24-2023 Instructions Becky Chapa LPN - 11/24/2023 8:30 AM EDT Follow up in Mar as scheduled. documented [facility] this [facility] Work Phone: 10-25-2023 History of Present illness Narrative Subjective Stevie Mike is a 47 y.o. male Chief Complaint Hypertension Chief Complaint Patient is here for earlier follow-up to discuss treatment and management for hypertension. He had been seen in the past by our nurse practitioner and by Dr. Bone. He underwent cardiac catheterization remotely which was negative. Patient reported blood pressure remains elevated recently. He admits to not indiscretion with salt restriction. He described functional class I. He denies complaint of chest pain, palpitation, lightheadedness, dizziness or syncope. His recent laboratory data noted and reviewed with him. Assessment 1. Hypertension suboptimally controlled 2. Morbid obesity 3. Glucose intolerance 4. Metabolic syndrome Plan 1. I counseled the patient at great length regarding nonpharmacologic approach for management of hypertension including DASH diet, low-salt, exercise, increasing fluid intake and weight loss 2. I advised him to increase his amlodipine to 5 mg daily. I will have a blood pressure check in 4 weeks and we will continue gradually uptitrate that to control his blood pressure 3. I advised him to monitor his blood pressure at home I will see him back in 6 months Hypertension Review of Systems All other systems reviewed and are negative. Vitals: 10/25/23 1517 BP: (!) 132/94 BP Location: Left arm Patient Position: Sitting Pulse: 88 Weight: (!) 157 kg (347 lb) Height: 1.93 m (6' 4 ) Objective Physical Exam Constitutional: Appearance: Normal appearance. HENT: Nose: Nose normal. Neck: Vascular: No carotid bruit. Cardiovascular: Rate and Rhythm: Normal rate. Pulses: Normal pulses. Heart sounds: Normal heart sounds. Pulmonary: Effort: Pulmonary effort is normal. Abdominal: General: Bowel sounds are normal. Palpations: Abdomen is soft. Musculoskeletal: General: Normal range of motion. Cervical back: Normal range of motion. Right lower leg: No edema. Left lower leg: No edema. Skin: General: Skin is warm and dry. Neurological: General: No focal deficit present. Mental Status: He is alert. Psychiatric: Mood and Affect: Mood normal. Behavior: Behavior normal. Thought Content: Thought content normal. Judgment: Judgment normal. Allergies Patient has no known allergies. Current Medications Current Outpatient Medications: lisinopriL-hydrochlorothiazide 20-25 mg tablet, Take 1 tablet by mouth once daily., Disp: , Rfl: metFORMIN (Glucophage) 500 mg tablet, Take 1 tablet (500 mg) by mouth 2 times a day., Disp: , Rfl: amLODIPine (Norvasc) 5 mg tablet, Take 1 tablet (5 mg) by mouth once daily., Disp: 30 tablet, Rfl: 11 Assessment/Plan 1. Benign essential hypertension Follow Up In Cardiology amLODIPine (Norvasc) 5 mg tablet Follow Up In Cardiology 2. Morbid obesity with body mass index (BMI) of 40.0 to 44.9 in adult ([facility]) 3. Former smoker 4. Metabolic syndrome Scribe Attestation By signing my name below, I, Becky Gonzales LPN, Scribe attest that this documentation has been prepared under the direction and in the presence of Manan Medrano MD. Provider Attestation - Scribe documentation All medical record entries made by the Scribe were at my direction and personally dictated by me. I have reviewed the chart and agree that the record accurately reflects my personal performance of the history, physical exam, discussion and plan. documented in this [facility] Work Phone: 10-25-2023 Instructions Becky Chapa LPN - 10/25/2023 2:30 PM EDT Please bring all medicines, vitamins, and herbal supplements with you when you come to the office. Prescriptions will not be filled unless you are compliant with your follow up appointments or have a follow up appointment scheduled as per instruction of your physician. Refills should be requested at the time of your visit. BMI was above normal measurement. Current weight: (!) 157 kg (347 lb) Weight change since last visit (-) denotes wt loss -6 lbs Weight loss needed to achieve BMI 25: 142 Lbs Weight loss needed to achieve BMI 30: 101.1 Lbs Provided instructions on dietary changes Provided instructions on exercise. Increase Norvasc documented in this [facility] Work Phone: 04-05-2023 Evaluation + Plan note Diagnostic Tests OhnbfbkIwsV9z 04/05/23 [facility] Evaluation note Diagnosis Benign essential hypertension- Primary Essential hypertension, benign Morbid obesity with body mass index (BMI) of 40.0 to 44.9 in adult ([facility]) Former smoker Personal history of tobacco use, presenting hazards to health Metabolic syndrome Dysmetabolic Syndrome X documented [facility] Work Phone: Evaluation note* Diagnosis Benign essential hypertension Essential hypertension, benign documented [facility] Work Phone: Evaluation note* Diagnosis Benign essential hypertension Essential hypertension, benign BMI 39.0-39.9,adult Former smoker Personal history of tobacco use, presenting hazards to health documented in [facility] Work Phone: History of Present illness Narrative* The patient presents for follow-up of essential hypertension. The patient states he has been doing well with his blood pressure control since the last visit. * Symptoms: denies impaired vision, denies dyspnea, denies chest pain, denies intermittent leg claudication and denies lower extremity edema. Associated symptoms include no headache. * Medications: the patient is adherent with his medication regimen. He denies medication side effects. [facility] 600 DO Work Phone: Hospital course Narrative No data available for this section [facility] No data available for this section [facility] No data available for this section [facility] (narrative)* Consultation (Routine) - Authorized Specialty Diagnoses / Procedures Referred By Mata patiño Referred To Contact Cardiology Diagnoses Benign essential hypertension Procedures Follow Up In Cardiology Manan Medrano MD [address] [address], [place] [phone] Referral ID Status Reason Start Date Expiration Date V isits Requested Visits Authorized [id number] Authorized 10/25/2023 10/24/2024 1 1 * Consultation (Routine) - Authorized Specialty Diagnoses / Procedures Referred By Contac t Referred To Contact Cardiology Diagnoses Benign essential hypertension Procedures Follow Up In Cardiology Manan Medrano MD [address] [place] [address] [address], [address] [address] Manan Medrano MD [address] [place] [address] 2, [place] [phone] Referral ID Status Reason Start Date Expiration Date V isits Requested Visits Authorized [id number] Authorized 10/25/2023 10/24/2024 1 1 [facility] Work Phone: Reason for referral (narrative)* Consultation (Routine) - Authorized Specialty Diagnoses / Procedures Referred By Mata patiño Referred To Contact Cardiology Diagnoses Benign essential hypertension Procedures Follow Up In Cardiology Manan Medrano MD [address] [place] [address] [address], [address] [address] Manan Medrano MD [address] [place] [address] 2, [place] [phone] Referral ID Status Reason Start Date Expiration Date V isits Requested Visits Authorized [id number] Authorized 04/25/2024 04/25/2025 1 1 T [facility] Work Phone: Advance Directives No Advanced Directives Records Found Advance Directive Response Recorded Date/ Time Advance Directives No March 04 9:36pm Chief Complaint and Reason for Visit Chief Complaint Abnormal Stress, Ang derik Assessments No Assessments Information Available Family History No Family History Records Found Relationship Condition Age at Onset Recorded Date/T alba father Diabetes mellitus Unknown Leukemia Unknown Hypertension Unknown History of heart surgery Unknown Unknown Family Member Name Dates Details Family history of leukemia: Father(V16.6, Z80.6) Status:Active Family history of coronary a rtery disease: Father(V17.3, Z82.49) Status:Active Family history of asthma: Fa ther(V17.5, Z82.5) Status:Active History of coronary artery b ypass graft: Father(V45.81, Z95.1) Status:Active Summary Purpose Chief Complaint * Annual f/u: 'doing fine' * STEVIE MIKE is being seen for an annual follow-up of hypertension. * Patient presents to the office today ambulatory with steady gait * Last evaluated in clinic Dr. Ware September 2020. At that time he was to follow with [facility] on an as-needed basis. * Presents to the office today in need of medication refills for antihypertensives. * He does have a PCP but reportedly does not follow on a regular basis. He is on metformin but sometimes misses doses . Have reinforced the importance of establishment with PCP for preventative measures and also management of continued primary prevention for coronary artery disease. He reportedly will follow-up and schedule annual appointment. In the interim, he is out of antihypertensives and I will supply with refills and needed annual assessment of renal function due to ANAM inhibitor/diureticuse. * Otherwise we review prior cardiovascular evaluation including a September 2020 cardiac cath with angiographically normal coronaries, LVEF 65%. * He continues to be aerobically active without any type of concerns or limitations. * Importance of primary prevention for CAD reinforced -especially diabetes and the consequences of uncontrolled diabetes. He will be contacting PCP. * Recommend PCP for management of hypertension; if agreeable, patient can follow with [facility] on an as-needed basis. Additional Source Comments (unrecognized sect ion and content) No Status Records FoundNo Status Records FoundNo Status Records FoundNo Status Records FoundNo Status Records FoundNo Status Records Found INFORMATION SOURCE (unrecogn ized section and content) DATE CREATED AUTHOR 09/06/2021 [facility] DATE CREATED AUTHOR AUTHOR'S ORGANIZ ATION 06/03/2022 [facility] DATE CREATED AUTHOR AUTHOR'S ORGANIZ ATION 06/03/2022 [employer] DATE CREATED AUTHOR AUTHOR'S ORGANIZ ATION 09/30/2022 [facility] DATE CREATED AUTHOR AUTHOR'S ORGANIZ ATION 04/27/2024 [facility] DATE CREATED AUTHOR AUTHOR'S ORGANIZ ATION 09/24/2024 Polo Goldberg [facility] Patient Care team informatio n (unrecognized section and content) Tool And Die Maker Relationship Specialty Start Date End Date Kristie Manley APRN-COMPRESSION MOLDING MACHINE OPERATOR [address] [place] [address] PCP - General 10/25/23 Tool And Die Maker Relationship Specialty Start Date End Date Kristie Manley APRN-COMPRESSION MOLDING MACHINE OPERATOR [address] [place] [address] PCP - General 10/25/23 Reason for Visit (unrecogniz ed section and content) Reason Comments Hypertension Reason Comments Hypertension Blood Pressure Check Specialty Diagnoses / Procedures Referred By Mata patiño Referred To Contact Cardiology Diagnoses Benign essential hypertension Procedures Follow Up In Cardiology Manan Medrano MD [address] [place] [address], [place] [phone] Referral ID Status Reason Start Date Expiration Date V isits Requested Visits Authorized [id number] Authorized 10/25/2023 10/24/2024 1 1 Reason Comments Follow-up 6 months Specialty Diagnoses / Procedures Referred By Mata patiño Referred To Contact Cardiology Diagnoses Benign essential hypertension Procedures Follow Up In Cardiology Manan Medrano MD [address] [place] [address], [place] [phone] Manan Medrano MD [address] [place] [address], [place] [phone] Referral ID Status Reason Start Date Expiration Date V isits Requested Visits Authorized [id number] Authorized 10/25/2023 10/24/2024 1 1 FOR RECORDS PERTAINING TO PATIENTS WHO ARE OR HAVE BEEN ENROLLED IN A CHEMICAL DEPENDENCY/SUBSTANCEABUSE PROGRAM, SOME INFORMATION MAY BE OMITTED. This clinical summary was aggregated from multiple sources. Caution should be exercised in using it in the provision of clinical care. This summary normalizes information from multiple sources, and as a consequence, information in this document may materially change the coding, format and clinical context of patient data. In addition, data may be omitted in some cases. CLINICAL DECISIONS SHOULD BE BASED ON THE PRIMARY CLINICAL RECORDS. [facility]. provides no warranty or guarantee of the accuracy or completeness of information in this document.
== END 2024-09-25 15:51 | disposition home or self-care (01) ==
LOC: RAD 15:53
PROVIDERS: PCP Nurse Practitioner; Visit Provider Nurse Practitioner
DX: M25.571 Pain in right ankle and joints of right foot (principal); M79.604 Pain in right leg; M25.471 Effusion, right ankle; M77.31 Calcaneal spur, right foot
CPT/HCPCS: 73590; 73610

== ENCOUNTER 2025-06-16 07:31 | Outpatient (OUT) | payer OTHER, SELFPAY ==
--- OUTSIDE RECORDS SUMMARY | 2025-06-10 23:59 | XMS_ITS | Continuity of Care Document ---
Author Organization [facility] Address [address] [place] [address] Care Team Providers Care Security Control Assessor Name Role Phone Kristie Manley Primary Care Physician Encounter FT_AMBRAJESH [id number] Date(s): 06/10/25 - 06/10/25 [facility] [address] [place] [address]- Discharge Disposition: Home (Routine DC) Attending Physician: Kristie Syed Encounter Type: Clinic Allergies, Adverse Reactions, Alerts No Known Allergies Treatment Plan Future Scheduled Tests Radiology* CT Abdomen w/ Contrast 06/05/25 Medications amLODIPine 5 mg Tab 5 mg = 1 tab(s), Oral, Daily, Refills(s) 0 Start Date: 09/25/24 Status: Ordered Medication Dispense Status: Completed Total Allowed Fills: 1 Fills Dispensed: 0 hydrochlorothiazide-lisinopril 25 mg-20 mg Tab See Instructions, 90 tab(s), Refill(s) 3, TAKE 1 TABLET BY MOUTH EVERY DAY, [id number], 188.8,cm, 06/11/24 9:12:00 EST, Height/Length Dosing, 155.4, kg, 06/11/24 9:12:00 EST, Weight Dosing Start Date: 08/27/24 Status: Ordered Medication Dispense Status: Completed Quantity: 90.0 Unit: tab(s) Total Allowed Fills: 1 Fills Dispensed: 0 meloxicam 15 mg Tab See Instructions, TAKE 1 TABLET BY MOUTH EVERY DAY, # 30 tab(s), Refills(s) 1, [id number] 188.8, cm, 11/22/24 11:41:00 EDT, Height/Length Dosing, 160.2, kg, 11/22/24 11:41:00 EDT, Weight Dosing Start Date: 11/22/24 Status: Ordered Medication Dispense Status: Completed Quantity: 30.0 Unit: tab(s) Total Allowed Fills: 2 Fills Dispensed: 0 meloxicam 15 mg Tab 15 mg = 1 tab(s), Oral, Daily, # 30 tab(s), Refills(s) 0, [id number], 188.8, cm, 05/20/25 8:31:00 EDT, Height/Length Dosing, 153.5, kg, 05/20/25 8:31:00 EDT, Weight Dosing Start Date: 05/20/25 Status: Ordered Medication Dispense Status: Completed Quantity: 30.0 Unit: tab(s) Total Allowed Fills: 1 Fills Dispensed: 0 metformin 500 mg Tab 500 mg = 1 tab(s), Oral, BID, # 180 tab(s), Refills(s) 3, [id number], 188.8, cm, 02/12/25 17:27:00 EDT, Height/Length Dosing, 158, kg, 02/12/25 17:27:00 EDT, Weight Dosing Start Date: 02/12/25 Status: Ordered Medication Dispense Status: Completed Quantity: 180.0 Unit: tab(s) Total Allowed Fills: 4 Fills Dispensed: 0 Vitamin D 50,000 intl units (1.25 mg) oral capsule 50,000 International_Unit = 1 cap(s), Oral, qWeek, # 12 cap(s), Refills(s) 0, [id number], 188.8, cm, 04/24/25 8:49:00 EDT, Height/Length Dosing, 155.2, kg, 04/24/25 8:49:00 EDT, Weight Dosing Start Date: 04/25/25 Status: Ordered Medication Dispense Status: Completed Quantity: 12.0 Unit: cap(s) Total Allowed Fills: 1 Fills Dispensed: 0 Indications: Anesthesia of skin; Dizziness and giddiness; Prediabetes; Pure hypercholesterolemia, unspecified; Body mass index [BMI] 40.0-44.9, adult; Encounter for screening for malignant neoplasm of prostate; Encounter for general adult medical examination without abnormal findings; Essential (primary) hypertension; Personal history of nicotine dependence; Problem List ConditionConfirmationCourseEffective DatesStatusHealth StatusInformantAbdominal painConfirmedActiveASTHMAConfirmedResolvedChillsConfirmedActivePoison bekah ConfirmedActiveCoughConfirmedActiveDizzinessConfirmedActiveBroken toothConfirmed ActiveFracture of toothConfirmedActiveHeadacheConfirmedActiveHistory of hernia repairConfirmedActiveHypercholesteremiaConfirmedActiveHypertensionConfirmed ActiveRight ankle injuryConfirmedActiveInjury of right lower legConfirmedActive Neck pain on right sideConfirmedActiveObstructive sleep apnea syndromeConfirmed ActiveLeft otitis mediaConfirmedActiveBilateral numbness and tingling of arms and legsConfirmedActiveWellness examinationConfirmedActiveProstate cancer screeningConfirmedActivePrediabetesConfirmedActiveCOVID-19 virus detected ConfirmedActiveSeasonal allergiesConfirmedActiveSinus infectionConfirmedActive Swelling of right footConfirmedActiveTendonitis of fingerConfirmedActiveTooth painConfirmedActive Procedures ProcedureDateRelated DiagnosisBody NczbCpmwuiQmkvof9Kozyxeyxg 1had 2 of them Social History Social History TypeResponseSmoking StatusFormer smoker, quit more than 30 days ago; Tobacco Use: quit 13 years ago entered on: 05/20/25Birth SexMaleSex RepresentationMale (finding) Patient Care team information Care Team Personnel Name: Hyacinth Ellis Position: [employer]: Claims Followup Rep (Renny) Member Role: [employer]: Claims Followup Rep (Records Administrator) Name: Kristie Syed Position: [facility] - Primary Care - JACOB Member Role: Primary Care Physician Address: [address] [place] [address]- Telecom: Care Team Related Persons Name: TEDDY MIKE Name: TEDDY MIKE Name: STEPHIE GORDON Insurance Providers Guarantor name: STEVIE Reji MIKE Health Plan Information #: 1 Payer: [facility] Payer Identifier: [id number] Member Number: [id number] Group Number: [id number] Subscriber Identifier: [id number] Relationship to Subscriber: self Coverage Type: PRIVATE HEALTH INSURANCE Coverage Verification Date: NA Telecom: [phone] Address: [facility] [address] [place] [address]
--- OUTSIDE RECORDS SUMMARY | 2025-06-16 07:37 | XMS_ITS | Clinical Summary ---
Author Organization [facility] Address [address] [place] [address] Phone Care Team Providers Care Apple Checker Name Role Phone Kristie Manley APRN-SAP SOLUTION MANAGER CONSULTANT Primary Care Provider [phone] Allergies No known active allergies Medications MedicationSigDispense QuantityRefillsLast FilledStart DateEnd DateStatus lisinopriL-hydrochlorothiazide 20-25 mg tablet Take 1 tablet by mouth once daily.Active metFORMIN (Glucophage) 500 mg tablet Take 1 tablet (500 mg) by mouth 2 times a day.Active amLODIPine (Norvasc) 5 mg tablet Indications:Benign essential hypertensionTake 1 tablet (5 mg) by mouth once daily. 90 tablet 5008/27/2025ctive Active Problems ProblemNoted DateDiagnosed DateBMI 39.0-39.9,adult04/25/2024Morbid obesity with body mass index (BMI) of 40.0 to 44.9 in adult10/25/2023Former pkesqu6310/25/2023 Metabolic ioietgaw35/27/2024enign essential ttnzdrzgsout92/08/2023 Family History Medical HistoryRelationNameCommentsDiabetesFathercabgFatherRelationNameStatus CommentsFather Social History Tobacco UseTypesPacks/DayYears UsedDateSmoking Tobacco: FormerCigarettesQuit: 2007Smokeless Tobacco: FormerChewQuit: 2018 Tobacco Cessation:Counseling Given: Not Answered Alcohol UseStandard Drinks/WeekCommentsYes0 (1 standard drink = 0.6 oz pure alcohol)few nights a weekSex and Gender InformationValueDate RecordedSex Assigned at BirthNot on fileLegal AyjTahn63/26/2022 8:45 PM ESTGender Identity Not on fileSexual OrientationNot on file Last Filed Vital Signs Vital SignReadingTime TakenCommentsBlood Jmcjlnun119/8404/25/2024 4:33 PM EDT Xyiqf2512/26/2024 4:07 PM EDTTemperature--Respiratory Rate--Oxygen Saturation-- Inhaled Oxygen Concentration--Cxwide698 kg (328 lb)04/25/2024 4:07 PM EDTHeight 193 cm (6' 4 )04/25/2024 4:07 PM EDTBody Mass Index39.9304/25/2024 4:07 PM EDT Plan of Treatment DateTypeDepartmentCare Team (Latest Contact Info)Vlvswkwumrm32/05/2026 10:10 AM ESTOffice Visit [place] [address] [place] [address] Yolis Medrano MD [address] [facility] [address] [place] [address] Health MaintenanceDue DateLast DoneCommentsCT Gpjukfomqfcn35/21/1977Colonoscopy 1976Colorectal Cancer Rftcrwnnf36/21/1977FIT-DNA (Cologuard)1976FIT 1976HIV Ebklogkft51/21/1977Lipid Panel11/18/19763705Poxfxazhudtlj15/21/1977 Yearly Adult Fjzzeqvd55/21/1977MMR Vaccines (1 of 1 - Standard series)1977 Diabetes Ltgifwnif42/21/1995Hepatitis C Tplhvswrm60/21/1995Hepatitis B Vaccines (1 of 3 - 19+ 3-dose series)11/19/1995Pneumococcal Vaccine: Pediatrics and At- Risk Adult Patients (1 of 2 - PCV)11/19/1995DTaP/Tdap/Td Vaccines (1 - Tdap) 1998Influenza Vaccine (#1)5COVID-19 Vaccine (1 - season) 2025Zoster Vaccines (1 of 2)2026HIB VaccinesAged OutNo longer eligible based on patient's age to complete this topicHPV VaccinesAged OutNo longer eligible based on patient's age to complete this topicHepatitis A VaccinesAged OutNo longer eligible based on patient's age to complete this topic IPV VaccinesAged OutNo longer eligible based on patient's age to complete this topicMeningococcal VaccineAged OutNo longer eligible based on patient's age to complete this topicRotavirus VaccinesAged OutNo longer eligible based on patient's age to complete this topic Insurance on file on file Care Teams Team MemberRelationshipSpecialtyStart DateEnd Date Kristie Manley, ASPHALT ENGINEER-SAP SOLUTION MANAGER CONSULTANT [address] [place] [address] PCP - General10/25/23
--- OUTSIDE RECORDS SUMMARY | 2025-06-16 07:38 | XMS_ITS | Clinical Summary ---
Author Organization [facility] Address [address] [place] [address] Care Team Providers Care Lapper Name Role Phone Vineet Kristie CRYSTALLIZER OPERATOR Unavailable Unallocated, [facility] Provider MD Primary Care Provi claudia Allergies No known active allergies Medications MedicationSigDispense QuantityRefillsLast FilledStart DateEnd DateStatus amLODIPine (Norvasc) 5 MG tablet Take 5 mg by mouth DailyActive lisinopril-hydroCHLOROthiazide 20-25 MG tablet Take 1 tablet by mouth DailyActive meloxicam (Mobic) 15 MG tablet See Instructions, TAKE 1 TABLET BY MOUTH EVERY DAY, # 30 tab(s), Refills(s) 1, Pharmacy: [facility]/pharmacy #[id number], 188.8, cm, 11/22/24 11:41:00 EDT, Height/Length Dosing, 160.2, kg, 11/22/24 11:41:00 EDT, Weight Paxmmh235Active metFORMIN (Glucophage) 500 MG tablet Take 500 mg by mouth5Active Active Problems ProblemNoted DateDiagnosed UqdlRlghapfkkdvw20/01/2025 Encounters DateTypeDepartmentCare OvlhIvavscefswn25/08/2025 8:30 AM EDTClinical Support [facility] [address] [place] [address] Gustavo Almeida, DPM FACFAS Neoplasm of uncertain behavior of skin (Primary Dx); Plantar fasciitis; Calcaneal spur, left foot; Pain in left foot; Verruca plantaris; Right foot pain; Acquired plantar lsxuvxnjwpwao41/08/2025amboo flowsheet [facility] [address] [place] [address] Gustavo Almeida, DAINA FACFAS 03/17/2025 8:00 AM EDTClinical Support [facility] [address] [place] [address] Gustavo Almeida, DPM FACFAS Calcaneal spur, left foot (Primary Dx); Plantar fasciitis; Pain in left foot; Arthralgia of right foot03/17/2025amboo flowsheet [facility] [address] [place] [address] Gustavo Almeida, DPM FACFAS from Last 3 Months Social History Tobacco UseTypesPacks/DayYears UsedDateSmoking Tobacco: NeverSmokeless Tobacco: Never Tobacco Cessation:Counseling Given: Yes Sex and Gender InformationValueDate RecordedSex Assigned at BirthNot on file Legal ZvzLsmi9910/12/2022 8:21 PM EDTGender IdentityNot on fileSexual Orientation Not on file Last Filed Vital Signs Vital SignReadingTime TakenCommentsBlood Mbngekvp535/8009 8:28 AM EDT Fgidj778404/07/2025 8:28 AM EDTTemperature--Respiratory Rate--Oxygen Saturation-- Inhaled Oxygen Concentration--Mquaae638 kg (350 lb)04/07/2025 8:28 AM EDTHeight 193 cm (6' 4 )04/07/2025 8:28 AM EDTBody Mass Index42.609 8:28 AM EDT Plan of Treatment Health MaintenanceDue DateLast DoneCommentsCT Eedemvmvjwwg44/21/1977Colonoscopy 1976Colorectal Cancer Krlvhsrsx84/21/1977FIT-DNA1976FIT1976 FOBT11/18/19762860Cafkxqqghiuvk32/21/1977COVID-19 Vaccine ( season) 2025Influenza Vaccine (#1)2025Pneumococcal Vaccine: Pediatrics (0 to 5 Years) and At-Risk Patients (6 to 64 Years)Aged OutNo longer eligible based on patient's age to complete this topic Insurance STEPHANIE REYES [id number] Care Teams Team MemberRelationshipSpecialtyStart DateEnd Date Unallocated, [facility], [address] [place] [address] PCP - GeneralFamily Medicine02/28/25 Kristie Manley NP [address] [place] [address] Referring Physicianmi Medicine02/28/25
--- NOTE | 2025-06-16 08:17 | CT_ITS ---
The [address] [address] Patient Name: STEVIE MIKE MRN: [id number] date: 1975 Sex: M Assigned Patient Location: CT Current Patient Location: CT Accession/Order Number: [id number] Exam Date: 06/16/2025 08:02 Report Date: 06/16/2025 08:49 At the request of: BRANDI WYNN Procedure: CT abdomen w con CT ABDOMEN WITH CONTRAST COMPARISON: 11/02/2020 CLINICAL DATA: Chronic mid to lower abdominal pain since umbilical hernia surgery in 2019. Lump at the mesh. Spiral axial images were obtained through the abdomen following oral and 100 mL of Omnipaque 300. This CT exam was performed using one or more following dose reduction techniques: Automated exposure control, adjustment of the mA and/or kV according to patient size, or use of iterative reconstruction technique. Limited cuts through the lung bases again show tiny subpleural nodules. There is fatty infiltration of the liver. No intrahepatic masses are noted. No calcified gallstones are seen. The spleen, pancreas and adrenal glands show no acute findings. There is minor perinephric fibrofatty stranding. There are symmetric renal nephrograms. No hydronephrosis is noted. There is a small amount of plaque at the distal aorta and proximal common iliac arteries. A few tiny lymph nodes are seen. No ascites is noted. There is an enlarging umbilical hernia with multiple loculations measuring up to almost 16 cm in greatest dimension. The hernia contains mesenteric fat and now also nondistended loops of small bowel. The intraabdominal small bowel loops are also normal caliber. There is mild stool within the colon. There are diverticula at the imaged sigmoid colon. No appendiceal inflammation is present. There are degenerative changes at the spine. CT/CT abdomen w con IMPRESSION: FATTY LIVER. NO BOWEL OR URINARY TRACT OBSTRUCTION. ENLARGING UMBILICAL HERNIA WHICH NOW CONTAINS NONOBSTRUCTED SMALL BOWEL. DIVERTICULOSIS. Impression dictated by: Gauri Shetty M.D. 06/16/2025 8:49 AM Dictation Location: [place] [address] Electronically authenticated by: [id number] Y Date: 06/16/2025 08:49
== END 2025-06-16 07:32 | disposition home or self-care (01) ==
LOC: CT 07:31
PROVIDERS: PCP Nurse Practitioner; Visit Provider Nurse Practitioner
DX: R10.9 Unspecified abdominal pain (principal); Z98.890 Other specified postprocedural states; K76.0 Fatty (change of) liver, not elsewhere classified; K42.9 Umbilical hernia without obstruction or gangrene; K57.90 Diverticulosis of intestine, part unspecified, without perforation or abscess without bleeding
CPT/HCPCS: 74160; Q9967

== ENCOUNTER 2025-06-25 09:36 | Outpatient (OUT) | payer OTHER, SELFPAY ==
--- OUTSIDE RECORDS SUMMARY | 2025-06-25 09:40 | XMS_ITS | CCD ---
Author Organization [facility] Care Team Providers Care Legal Operations Manager Name Role Phone Mlelissa Salazar Primary Care Provider Mumtaz Godinez Attending Provider Unavailable Unavailable Mellissa Salazar Unavailable Mellissa Salazar Primary Care Unavailable NORTH Haddad Attending Unavailable NORTH Haddad Referring Unavailable DR MELLISSA RIGGS Primary Care Unavailable GUTIERREZ BEAN Attending Unavailable GUTIERREZ BEAN Consulting Unavailable GUTIERREZ BEAN Admitting Unavailable Kristie Manley Primary Care Physician [phone] Tianna PHOTOENGRAVING PRINTER-Kristie KAT Primary Care Provider MANAN MEDRANO Attending Unavailable MANAN MEDRANO Referring Unavailable TIANNAKRISTIE Primary Care Unavailable MANAN MEDRANO Referring Unavailable TIANNAKRISTIE Primary Care Unavailable MANAN MEDRANO Attending Unavailable MANAN MEDRANO Attending Unavailable TIANNAKRISTIE Primary Care Unavailable Unavailable Primary Care Provider Unavailabl e Tianna CARBON SEQUESTRATION PLANT ENGINEERKristie Unavailable Unallocated MD, [place] Provider Primary Care Provi claudia GUSTAVO CRANE Attending Unavailable ITZ CULLEN Referring Unavailable GUSTAVO CRANE Attending Unavailable GUSTAVO CRANE Attending Unavailable NORTH CULLEN Attending UnavailNORTH Plummer Attending Unavailabl e TiannaKristie xiong Attending Unavailable TiannaKristie Attending Unavailable Tianna, Kristie L Attending Unavailable Tianna, Kristie L Attending Unavailable Tianna, Kristie L Attending Unavailable Tianna, Kristie L Attending Unavailable Tianna, Kristie L Attending Unavailable Tianna, Kristie L Admitting Unavailable Tianna, Kristie L Attending Unavailable Tianna, Kristie L Attending Unavailable Tianna, Kristie L Attending Unavailable Tianna, Kristie L Admitting Unavailable Tianna, Kristie L Attending Unavailable Unavailable Unavailable Unavailable Medications Current Medications MedicationDrug Class(es)DatesSig (Normalized)Sig (Original)amLODIPine 5 mg oral tablet (18 sources)Dihydropyridine Calcium Channel BlockerStart: 10-25-2023 End: 74-97-3531dftr 1 tablet by mouth once dailyamLODIPine (Norvasc) 5 mg tablet Indications: Benign essential hypertension Take 1 tablet (5 mg) bymouth once daily. 30 tablet 11 10/25/2023 10/24/2024 ActiveStart: 10-08-2020 End: 66-86-7963uoet 1 tablet by mouth once dailyamLODIPine 2.5 mg Tab 2.5 mg = 1 tab(s), Oral, Daily, # 90 tab(s), Refills(s) 3, Pharmacy: [facility]/pharmacy #[id number], 188.8, cm, 07/12/23 9:49:00 EST, Height/Length Dosing, 159.2, kg, 07/12/23 9:49:00 EST, Weight Dosing Start Date: 08/15/23 Status: Orderedfamotidine 40 mg oral tablet (1 source)Histamine-2 Receptor AntagonistStart: 61-56-1254omdy 40 mg by mouth once dailyFamotidine Active 40 MG PO Daily September 22, 2020 9:21am hydroCHLOROthiazide 25 mg / lisinopril 20 mg oral tablet (13 sources)Thiazide Diuretic, Angiotensin Converting Enzyme InhibitorStart: 89-30-1427jxgjhmftdtexpiysnhr-lisinopril 25 mg-20 mg Tab 1 tab(s), Oral, Daily, 90 tab(s), Refill(s) 3, [facility]/pharmacy #[id number], 188.8, cm, 07/12/23 9:49:00 EST, Height/Length Dosing, 159.2, kg, 07/12/23 9:49:00 EST, Weight Dosing Start Date: 08/28/23 Status: Orderedlisinopril 5 mg oral tablet (1 source)Angiotensin Converting Enzyme InhibitorStart: 34-40-0262hxte 1 mg by mouth once dailylisinopril 5 mg Tab mg tab(s), Oral, Daily, Refills(s) 0 Start Date: 12/07/20 Status: Orderedmeloxicam 15 mg oral tablet (10 sources)Nonsteroidal Anti-inflammatory DrugStart: 11-22-2024 End: 61-83-2397fqrz 1 tablet by mouth once dailymeloxicam (Mobic) 15 MG tablet See Instructions, TAKE 1 TABLET BY MOUTH EVERY DAY, # 30 tab(s), Refills(s) 1, Pharmacy: [facility]/pharmacy #[id number], 188.8, cm, 11/22/24 11:41:00 EDT, Height/Length Dosing, 160.2, kg, 11/22/24 11:41:00 EDT, Weight Dosing 11/22/2024 Active metFORMIN hydrochloride 500 mg oral tablet (14 sources)BiguanideStart: 13-74-7778tinHEDYWQ (Glucophage) 500 MG tablet Take 500 mg by mouth 02/12/2025 ActiveStart: 71-36-9440hygb 1 tablet by mouth twice dailymetformin 500 mg Tab 500 mg = 1 tab(s), Oral, BID, # 180 tab(s), Refills(s) 1, Pharmacy: [facility]/pharmacy #[id number], 188.8, cm, 04/05/23 14:52:00 EDT, Height/Length Dosing, 157.9, kg, 04/05/23 14:52:00 EDT, Weight Dosing Start Date: 04/10/23 Status: OrderedStart: 56-42-0473oalx 1 tablet by mouth once daily in the morning metFORMIN HCl - 500 MG Oral Tablet TAKE 1 TABLET BY MOUTH EVERY DAY IN THE MORNING Quantity: 90 Refills: 0 Ordered: 23-Oct-2021 DO Start : 26-Oct-2020 ActiveStart: 24-79-6930rvdd 500 mg by mouth once daily in the morningMetformin Active 500 MG PO Every morning September 22, 2020 9:21ampredniSONE 20 mg oral tablet (5 sources)Start: 04-07-2025 End: 73-94-5540oqcy 1 tablet by mouth once dailypredniSONE (Deltasone) 20 MG tablet Indications: Plantar fasciitis Take 1 tablet (20 mg) by mouth Daily 30 tablet 04/07/2025 04/07/2025 DiscontinuedStart: 02-28-2025 End: 27-94-9217qbhy 1 tablet by mouth once dailypredniSONE (Deltasone) 20 MG tablet Indications: Plantar fasciitis Take 1 tablet (20 mg) by mouth Daily for 10 days 10 tablet 02/28/2025 03/10/2025 Completed/Discontinued Medications MedicationDrug Class(es)DatesSig (Normalized)Sig (Original)atorvastatin 20 mg oral tablet (1 source)HMG-CoA Reductase InhibitorStart: 03-07-2019 End: 16-08-3582gkmf 20 mg by mouth once daily at bedtimeAtorvastatin Discontinued 20 MG PO Daily at bedtime March 07, 2019 3:16pm September 22, 2020 9:24amcyproheptadine hydrochloride 4 mg oral tablet (1 source)Start: 03-07-2019 End: 90-10-0639mzdm 2 mg by mouth once daily at bedtimeCyproheptadine Discontinued 2 MG PO Daily at bedtime 15 March 07, 2019 3:14pm September 22, 2020 9:24am Problems Problem ClassificationProblemDateDocumented DateEpisodic/ChronicAsthma (2 sources)Ntcjly38-16-5471KhwyzqyCfddoqaemc associated with dizziness or vertigo (2 sources)Dizziness; Translations: [Lightheadedness]EpisodicDisorders of teeth and jaw (1 source)Tjujrjobz92-98-2980IwvghyvfTfucffadx hypertension (20 sources)Hypertensive disorder; Translations: [Benign essential hypertension] Onset: 08-24-7888OdhlouhKjgdfekgw of unspecified nature or uncertain behavior (1 source)Neoplasm of uncertain behavior of skin; Translations: [Neoplasm of uncertain behavior of skin]28-77-9296OtyiocdwOkcwimgiiqt chest pain (1 source)Precordial pain; Translations: [Precordial pain]EpisodicOpen wounds of head; neck; and trunk (1 source)Fracture of zagjk53-19-9946ObtzspenIzoyq connective tissue disease (4 sources)Plantar fasciitis; Translations: [Plantar fascial fibromatosis] 03-77-6301PxeyxwguGlfrl connective tissue disease (4 sources)Calcaneal spur of left foot; Translations: [Calcaneal spur, left foot]98-91-8643SiqqwjvqMjkjq connective tissue disease (4 sources)Pain in left foot; Translations: [Pain in left foot]03-02-2025 EpisodicOther connective tissue disease (1 source)Pain in right foot; Translations: [Pain in right foot]04-07-2025 EpisodicOther non-traumatic joint disorders (1 source)Pain of joint of right foot; Translations: [Pain in right ankle and joints of right foot]97-21-8583YvjsjigeHtnwo nutritional; endocrine; and metabolic disorders (3 sources)Body mass index 30+ - obesity; Translations: [Body mass index (BMI) 39.0-39.9, adult]Onset: 457723-28-2200InhxxkgIwapb nutritional; endocrine; and metabolic disorders (6 sources)Body mass index 40+ - severely obese; Translations: [Morbid obesity] Onset: 478681-75-4629TvrffxuRmmht nutritional; endocrine; and metabolic disorders (5 sources)Metabolic syndrome X; Translations: [Metabolic syndrome]Onset: 170753-29-3268NjxwimaDifgo nutritional; endocrine; and metabolic disorders (2 sources)Body mass index (BMI) 39.0-39.9, adult; Translations: [Body mass index (BMI) 39.0-39.9, adult]Onset: 00-48-4687EgqpgmwSkejr nutritional; endocrine; and metabolic disorders (2 sources)Morbid (severe) obesity due to excess calories; Translations: [Morbid (severe) obesity due to excess calories (CMS/HCC)]Onset: 01-34-8733AfhryleCxdbv nutritional; endocrine; and metabolic disorders (2 sources)Body mass index (BMI) 40.0-44.9, adult; Translations: [Body mass index (BMI) 40.0-44.9, adult (CMS/HCC)]Onset: 31-42-8034YfyajbvNnvrz nutritional; endocrine; and metabolic disorders (1 source)Metabolic syndrome; Translations: [Metabolic syndrome]Onset: 69-08-5670UqvvoogJpyup skin disorders (1 source)Acquired keratoderma; 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]10-58-6115ExajwlkbMcsnthnz codes; unclassified (3 sources)Obstructive sleep apnea syndrome; Translations: [Obstructive sleep apnea syndrome]51-55-1257JscpmzqOsgzdpskr and history of mental health and substance abuse codes (8 sources)Ex-smoker; Translations: [Personal history of tobacco use]Onset: 512716-90-9606NdjacuatEbogiys on above:quit 2009;Syncope (2 sources)Near syncope; Translations: [Syncope]EpisodicUnclassified (2 sources)Patient encounter qdipja58-22-5560Hkrjdwzepwme (1 source)Severe acute respiratory syndrome coronavirus 2 cjofhvox64-52-9500 Viral infection (1 source)Verruca plantaris; Translations: [Plantar wart]25-27-3127Lnfcuyez Results Test NameValueInterpretationReference RangeFacilityAmbulatory Visit Summaryon 31-47-4139Mterzxssjz Visit SummaryAmbulatory Visit Summary STEVIE MIKE :1975 Visit Date:05/20/2025 Ambulatory Visit Instructions Your Diagnosis Hypertension Dizziness Adult BMI 40.0-44.9 kg/sq m Former smoker Your Care Team Attending Physician - Kristie Syed Primary Care Physician - Kristie Syed This Is Your Medications List amlodipine (amLODIPine 5 mg Tab) ergocalciferol (Vitamin D 50,000 intl units (1.25 mg) oral capsule) hydrochlorothiazide-lisinopril (hydrochlorothiazide-lisinopril 25 mg-20 mg Tab) meloxicam (meloxicam 15 mg Tab) meloxicam (meloxicam 15 mg Tab) metformin (metformin 500 mg Tab) Procedures Performed Hernia. Discharge Vitals Temperature (Temporal Artery) 36.2 ???C Heart Rate (Peripheral) 70 Respiratory Rate 18 Blood Pressure 136/82 Height 74 in Height 188.8 cm Weight 338.409 lb Weight 153.5 kg BMI 43.06 What to do next Scheduled Follow-Up Appointments Monday 3:20 PM EST With: Kristie Syed Where: [place] [phone]- You Need to Schedule the Following Appointments Follow Up with Tianna ZHANG, ARTIS Goss, MED When: In 3 weeks 06/10/2025 [facility] Where: [address], [place] [id number]- Business (1) Medications What How Much When Why Instructions Unchanged amlodipine (amLODIPine 5 mg Tab) 1 Tablets By Mouth Every day Unchanged ergocalciferol (Vitamin D 50,000 intl units (1.25 mg) oral capsule) 1 Capsules By Mouth Every week Wellness examination Hypertension Dizziness Bilateral numbness and tingling of arms and legs Hypercholesteremia Prediabetes Prostate cancer screening BMI 40.0-44.9, adult Former smoker Unchanged hydrochlorothiazide-lisinopril (hydrochlorothiazide-lisinopril 25 mg- 20 mg Tab) See instructions TAKE 1 TABLET BY MOUTH EVERY DAY Unchanged meloxicam (meloxicam 15 mg Tab) 1 Tablets By Mouth Every day Pickup at [facility]/pharmacy #[id number] Unchanged meloxicam (meloxicam 15 mg Tab) See instructions TAKE 1 TABLET BY MOUTH EVERY DAY Unchanged metformin (metformin 500 mg Tab) 1 Tablets By Mouth 2 times a day Pharmacy Information [facility]/pharmacy #[id number]: [address], [place] [id number] [phone] Allergies No Known Allergies Problems Ongoing - Any problem that you are currently receiving treatment for. Bilateral numbness and tingling of arms and legs Broken tooth Chills Cough COVID-19 virus detected Dizziness Fracture of tooth Headache Hypercholesteremia Hypertension Injury of right lower leg Left otitis media Morbid obesity with BMI of 40.0-44.9, adult Neck pain on right side Obstructive sleep apnea syndrome Poison bekah Prediabetes Prostate cancer screening Right ankle injury Seasonal allergies Sinus infection Swelling of right foot Tendonitis of finger Tooth pain Wellness examination Historical - Any problem that you are no longer receiving treatment for. ASTHMA Patient Survey You may receive a survey via text or e-mail asking about your office visit. Please share your experience with us by completing your survey. We appreciate your feedback and thank you for choosing us for your care. Patient Portal You may access all of your results and other medical record information on our secure patient portal. If you are not signed up for this yet, please contact [employer] at [phone] to get signed up today. Language Information Language assistance services are available as needed. [facility] Medicine Office/Clinic Noteon 26-42-5191[facility] Medicine Office/Clinic NoteSaint [facility] Note HPI Staff Pt presents today for 4wk follow up to episodes of dizziness/fogginess & BL numbness & tingling of arms and legs. Wellness labs completed 04/24/25. Vitamin D initiated at that time. He has not had any tingling, but he still feels foggy in the head. If he lays down it will go away History of Present Illness pt presents today for follow up on dizziness and feeling foggy. Review of Systems PHQ Score Initial Depression Screen Score: 0 SCORE General: alert, no acute distress ENMT: oral mucosa moist, no pharyngeal erythema or exudate Cardiovascular: regular rate and rhythm, normal peripheral perfusion Respiratory: Lungs CTA, respirations non labored Extremities: no deformity, no trauma Neurological: oriented x 4, LOC appropriate for age, CN II-XII intact, motor strength equal & normal bilaterally, speech normal Physical Exam Vitals & Measurements T: 36.2 ???C(Temporal Artery) HR: 70(Peripheral) RR: 18 BP: 136/82 SpO2: 100% HT: 188.8 cm HT: 74 in WT: 153.5 kg WT: 338.409 lb BMI: 43.06 Assessment/Plan 1. Hypertension (I10: Essential (primary) hypertension) pt presents today for follow up on BP with episodes of dizziness/fogginess. pt feels the tingling he was having has improved since starting the vitamin d. but he still gets the headache with foggy feeling. it doesn't happen daily but a few times a week. he missed his appointment with cardiology andthey rescheduled him in August. he is going to call them and let them know he is having some issues to see if they can get him in sooner. we reviewed his labs and I feel he is having theses episodes from dehydration. he takes HCTZ and drinks >6 beers nightly. discussed changing lisinopril/hctzto losartan. but didn't want to make the change until he discussed with cardio. RTC 3 weeks. if he is able to get into cardio he will cancel appointment. 2. Dizziness (R42: Dizziness and giddiness) see above 3. Adult BMI 40.0-44.9 kg/sq m (Z68.41: Body mass index [BMI] 40.0-44.9, adult) BMI education 4. Former smoker (Z87.891: Personal history of nicotine dependence) continue not smoking Orders: meloxicam, 15 mg = 1 tab(s), Oral, Daily, # 30 tab(s), Refills(s) 0, Pharmacy: [facility]/pharmacy #[id number], 188.8, cm, 05/20/25 8:31:00 EDT, Height/Length Dosing, 153.5, kg, 05/20/25 8:31:00 EDT, Weight Dosing Follow-up With When Contact Information Tianna ZHANG, Kristie Mills, ARTIS, MED In 3 weeks 06/10/[address] [facility] (1) Additional Instructions: Problem List/Past Medical History Ongoing Bilateral numbness and tingling of arms and legs Broken tooth Chills Cough COVID-19 virus detected Dizziness Fracture of tooth Headache Hypercholesteremia Hypertension Injury of right lower leg Left otitis media Morbid obesity with BMI of 40.0-44.9, adult Neck pain on right side Obstructive sleep apnea syndrome Poison bekah Prediabetes Prostate cancer screening Right ankle injury Seasonal allergies Sinus infection Swelling of right foot Tendonitis of finger Tooth pain Wellness examination Historical ASTHMA Procedure/Surgical History Hernia. Medications amLODIPine 5 mg Tab, 5 mg= 1 tab(s), Oral, Daily hydrochlorothiazide-lisinopril 25 mg-20 mg Tab, See Instructions meloxicam 15 mg Tab, See Instructions, 1 refills, Not taking: not for a week he has taken this meloxicam 15 mg Tab, 15 mg= 1 tab(s), Oral, Daily metformin 500 mg Tab, 500 mg= 1 tab(s), Oral, BID, 3 refills Vitamin D 50,000 intl units (1.25 mg) oral capsule, 8[address] International_Unit= 1 cap(s), Oral, qWeek Allergies No Known Allergies Social History Alcohol Current. Beer. Daily., 06/11/2024 Substance Abuse Never., 06/11/2024 Tobacco Former smoker, quit more than 30 days ago, quit 13 years ago Tobacco Use:., 05/20/2025 Family History Asthma: Father. Diabetes mellitus type 1: Father. Heart disease: Father.[facility] CenterComment on above:Result Comment: Electronically Signed By: Kristie Syed\.br\Date and Time Signed: 05/20/25 09:46 EDTAmbulatory Visit Summaryon 65-08-9846Ehehqsbegs Visit Summary Ambulatory Visit Summary STEVIE MIKE :1975 Visit Date:04/24/2025 Ambulatory Visit Instructions Your Diagnosis Wellness examination Hypertension Dizziness Bilateral numbness and tingling of arms and legs Hypercholesteremia Prediabetes Prostate cancer screening BMI 40.0-44.9, adult Former smoker Your Care Team Attending Physician - Kristie Syed Primary Care Physician - Kristie Syed This Is Your Medications List amlodipine (amLODIPine 5 mg Tab) hydrochlorothiazide-lisinopril (hydrochlorothiazide-lisinopril 25 mg-20 mg Tab) meloxicam (meloxicam 15 mg Tab) metformin (metformin 500 mg Tab) Procedures Performed Hernia. Discharge Vitals Temperature (Temporal Artery) 36.4 ???C Heart Rate (Peripheral) 88 Respiratory Rate 18 Blood Pressure 134/84 Height 188.8 cm Height 74 in Weight 155.2 kg Weight 342.157 lb BMI 43.54 What to do next Scheduled Follow-Up Appointments Monday 8:20 AM EDT With: Kristie Syed Where: [facility] [address] [address]- You Need to Schedule the Following Appointments Follow Up with Kristie Syed, FAM, MED When: In 4 weeks 05/20/2025 EDT Where: [address] [place] [address]- Business (1) Medications What How Much When Instructions Unchanged amlodipine (amLODIPine 5 mg Tab) 1 Tablets By Mouth Every day Unchanged hydrochlorothiazide-lisinopril (hydrochlorothiazide-lisinopril 25 mg- 20 mg Tab) See instructions TAKE 1 TABLET BY MOUTH EVERY DAY Unchanged meloxicam (meloxicam 15 mg Tab) See instructions TAKE 1 TABLET BY MOUTH EVERY DAY Unchanged metformin (metformin 500 mg Tab) 1 Tablets By Mouth 2 times a day Allergies No Known Allergies Problems Ongoing - Any problem that you are currently receiving treatment for. Bilateral numbness and tingling of arms and legs BMI 40.0-44.9, adult Broken tooth Chills Cough COVID-19 virus detected Dizziness Fracture of tooth Headache Hypercholesteremia Hypertension Injury of right lower leg Left otitis media Morbid obesity with BMI of 40.0-44.9, adult Neck pain on right side Obstructive sleep apnea syndrome Poison bekah Prediabetes Prostate cancer screening Right ankle injury Seasonal allergies Sinus infection Swelling of right foot Tendonitis of finger Tooth pain Wellness examination Historical - Any problem that you are no longer receiving treatment for. ASTHMA Patient Survey You may receive a survey via text or e-mail asking about your office visit. Please share your experience with us by completing your survey. We appreciate your feedback and thank you for choosing us for your care. Patient Portal You may access all of your results and other medical record information on our secure patient portal. If you are not signed up for this yet, please contact [employer] at [phone] to get signed up today. Language Information Language assistance services are available as needed. [facility] Basophil Absolute0.0 E9/LNormal0.0-0.2FCommunity Memorial HospitalComment on above:Performed By: #### [id number] #### [facility] [address] [place], [place] [address]Wlgxcginh/100 WBC (Bld)0.7 %Normal0.0-2.0[facility] HospitalComment on above:Performed By: #### [id number] #### [facility] [address] [place], [place] [address]Lnz Absolute0.1 E9/LNormal0.0-0.5FCommunity Memorial Hospital Comment on above:Performed By: #### [id number] #### [facility] [address] [place], [place] [address]Ttjzdhgvtpa/100 WBC (Bld)1.9 %Normal0.0-8.0[facility] HospitalComment on above:Performed By: #### [id number] #### [facility] [address] [place] [address]Wktpifoijur distribution width (RBC) [Ratio]13.7 %Normal 10.9-14.2FCommunity Memorial HospitalComment on above:Performed By: #### [id number] #### [facility] [address] [place] [address]Slqtdvnfrr (Bld) [Volume fraction]46.1 %Pvsbtj98.7-49.0[facility] HospitalComment on above:Performed By: #### [id number] #### [facility] [address] [place] [address]Opozziccfb (Bld) [Mass/Vol]15.5 g/wJZgkeyt93.5-17.5FCommunity Memorial HospitalComment on above:Performed By: #### [id number] #### [facility] [address] [place] [address]Bqddq Absolute1.6 E9/LNormal1.0-4.0[facility] Comment on above:Performed By: #### [id number] #### [facility] [address] [place] [address]Crlhcmsqsvf/100 WBC (Bld)29.8 %Lsxdoe96.0-50.0[facility] HospitalComment on above:Performed By: #### [id number] #### [facility] [address] [place] [address]UNP (RBC) [Entitic mass]31.3 eyZxwudd85.0-34.0[facility] HospitalComment on above:Performed By: #### [id number] #### [facility] [address] [place] [address] 78[address]ZTDK (RBC) [Mass/Vol]33.6 g/zNHqyqem22.4-36.0[facility] HospitalComment on above:Performed By: #### [id number] #### [facility] [address] [place] [address]DNK (RBC) [Entitic vol]92.9 vJKpragj82.0-100.0[facility] HospitalComment on above:Performed By: #### [id number] #### [facility] [address] [place] [address]Tihe Absolute0.4 E9/LNormal0.2-1.0[facility] Comment on above:Performed By: #### [id number] #### [facility] [address] [place] [address]Lgenhbgkn/100 WBC (Bld)7.9 %Normal4.0-14.0[facility] HospitalComment on above:Performed By: #### [id number] #### [facility] [address] [place] [address]Wwprpp Absolute3.2 E9/LNormal2.0-7.5FCommunity Memorial Hospital Comment on above:Performed By: #### [id number] #### [facility] [address] [place] [address]Puoutm Auto59.7 %Gfhcsq17.0-75.0[facility] Comment on above:Performed By: #### [id number] #### [facility] [address] [place] [address]Minaiftm827.0 E9/JNbyzvy805.0-500.0[facility] Comment on above:Performed By: #### [id number] #### [facility] [address] [place] [address]Zqxqiicd mean volume (Bld) [Entitic vol]8.5 fLNormal6.4-10.8 [facility] HospitalComment on above:Performed By: #### [id number] #### [facility] [address] [place] [address]XHG2.0 E12/LNormal4.3-5.9Det[facility] HospitalComment on above:Performed By: #### [id number] #### [facility] [address] [place], [place] [address]ZEO0.4 E9/LNormal4.0-11.0[facility] HospitalComment on above:Performed By: #### [id number] #### [facility] [address] [place], [place] [address]QOWla 16-12-7551Sauwywa [Mass/Vol]4.4 g/dLNormal3.3-5.0[facility] HospitalComment on above:Performed By: #### [id number] #### [facility] [address] [place], [place] [address]Deknoag/Globulin [Mass ratio]1.4 {ratio}Normal1.1-2.2FCommunity Memorial HospitalComment on above:Performed By: #### [id number] #### [facility] [address] [place], [place] [address]Brs Phos47 Int._Unit/DKitpyi17-67DrgzbvDetwiler Memorial Hospital Comment on above:Performed By: #### [id number] #### [facility] [address] [place], [place] [address]CNI22 Int._Unit/LNormal6-46[facility] HospitalComment on above:Performed By: #### [id number] #### [facility] [address] [place], [place] [address]Dwssw gap [Moles/Vol]9 mmol/LNormal6-16[facility] HospitalComment on above:Performed By: #### [id number] #### [facility] [address] [place], [place] [address]YNE14 Int._Unit/LNormal5-43[facility] HospitalComment on above:Performed By: #### [id number] #### [facility] [address] [place], [place] [address]Ftzm Total0.6 mg/dLNormal0.0-1.1FCommunity Memorial Hospital Comment on above:Performed By: #### [id number] #### [facility] [address] [place], [place] [address]VDF/Creat Ratio19 No WfzwkNxunpi85-98AihwjzDetwiler Memorial HospitalComment on above:Performed By: #### [id number] #### [facility] [address] [place], [place] [address]Rrichmp [Mass/Vol]9.8 mg/dLNormal8.9-11.1FCommunity Memorial HospitalComment on above:Performed By: #### [id number] #### [facility] [address] [place], [place] [address]Pgptrpft [Moles/Vol]99 mmol/RXqf087-904WuwomxDetwiler Memorial HospitalComment on above:Performed By: #### [id number] #### [facility] [address] [place], [place] [address]WU8 [Moles/Vol]33 mmol/YYyvo61-44IymmgkDetwiler Memorial Hospital Comment on above:Performed By: #### [id number] #### [facility] [address] [place], [place] [address]Xwxenqchoy [Mass/Vol]1.1 mg/dLNormal0.5-1.3FCommunity Memorial HospitalComment on above:Performed By: #### [id number] #### [facility] [address] [place], [place] [address]Irmvkvva (S) [Mass/Vol]3.1 g/dLNormal1.4-4.0[facility] HospitalComment on above:Performed By: #### [id number] #### [facility] [address] [place], [place] [address]Pmoyefu [Mass/Vol]103 mg/rUUujwce80-075ItvainDetwiler Memorial HospitalComment on above:Performed By: #### [id number] #### [facility] [address] [place], [place] [address]Niukjekvj [Moles/Vol]4.2 mmol/LNormal3.5-5.3FCommunity Memorial HospitalComment on above:Performed By: #### [id number] #### [facility] [address] [place], [place] [address]Oguqtau [Mass/Vol]7.5 g/dLNormal6.0-7.8Det[facility] Memorial HospitalComment on above:Performed By: #### [id number] #### [facility] [address] [place], [place] [address]Rpponh [Moles/Vol]137 mmol/ZJvwnix674-605UqqiqbDetwiler Memorial HospitalComment on above:Performed By: #### [id number] #### [facility] [address] [place], [place] [address]Hbfd nitrogen [Mass/Vol]21 mg/dLNormal5-21Det[facility]iler Memorial HospitalComment on above:Performed By: #### [id number] #### [facility] [address] [place], [place] [address]Ueaqpa Medicine Office/Clinic Noteon [id number] Medicine Office/Clinic NoteFami Medicine Office/Clinic Note HPI Staff Pt is here for getting light headed and fingers go numb during the day off and on since hernia surgery had 2 one in 2017- and the other 2018 arms and legs felt like they were asleep Lightheaded sometimes off and on If he lays down on his back it helps sometimes When he gets light headed it makes his forearms feel or on the top of his legs lasts about 10 minutes then goes away warm sometimes has pains were his hernia surgery was, laying on his back relieves this also History of Present Illness pt c/o intermittent dizzy/foggy feeling Review of Systems PHQ Score Initial Depression Screen Score: 0 SCORE Physical Exam Vitals & Measurements T: 36.4 ???C(Temporal Artery) HR: 88(Peripheral) RR: 18 BP: 134/84 SpO2: 95% HT: 74 in HT: 188.8 cm WT: 342.157 lb WT: 155.2 kg BMI: 43.54 General: alert, no acute distress ENMT: oral mucosa moist, no pharyngeal erythema or exudate Cardiovascular: regular rate and rhythm, normal peripheral perfusion Respiratory: Lungs CTA, respirations non labored Extremities: no deformity, no trauma Neurological: oriented x 4, LOC appropriate for age, CN II-XII intact, motor strength equal & normal bilaterally, speech normal Assessment/Plan 1. Wellness examination (Z00.00: Encounter for general adult medical examination without abnormal findings) will do wellness labs today. all questions answered. RTC 1 month Ordered: Est Preventative 40 to 64 years [address] 2. Hypertension (I10: Essential (primary) hypertension) BP at goal today. about 6 years ago he had hernia surgery. at that time his BP was very high. he had full cardiac work up at that time. will do EKG in office today. check some labs. Will consider referral to cardiology after lab results are back. he has not checked his BP when he has thees episodes. Ordered: CBC w/ Auto Diff Comprehensive Metabolic Panel ECG 12 Lead Adult Est Preventative 40 to 64 years [address] HgbA1c Iron Level Lipid Panel PSA Screen, Total Thyroid Stimulating Hormone Vitamin D 25 Hydroxy 3. Dizziness (R42: Dizziness and giddiness) pt c/o episodes of fogginess. he doesn't feel like the room is spinning. just feels off. it usuallyonly lasts a few minutes. EKG is normal in office today. will check labs and call him with those results. Ordered: CBC w/ Auto Diff Comprehensive Metabolic Panel ECG 12 Lead Adult Est Preventative 40 to 64 years [address] HgbA1c Iron Level Lab Specimen Collect 97688 Lipid Panel PSA Screen, Total Thyroid Stimulating Hormone Vitamin D 25 Hydroxy 4. Bilateral numbness and tingling of arms and legs (R20.0: Anesthesia of skin) when he has these episodes, his lower arms and thighs will get tingly. Ordered: CBC w/ Auto Diff Comprehensive Metabolic Panel ECG 12 Lead Adult Est Preventative 40 to 64 years [address] HgbA1c Iron Level Lab Specimen Collect 83261 Lipid Panel PSA Screen, Total Thyroid Stimulating Hormone Vitamin D 25 Hydroxy 5. Hypercholesteremia (E78.00: Pure hypercholesterolemia, unspecified) lipid panel ordered Ordered: CBC w/ Auto Diff Comprehensive Metabolic Panel Est Preventative 40 to 64 years [address] HgbA1c Iron Level Lab Specimen Collect 26425 Lipid Panel PSA Screen, Total Thyroid Stimulating Hormone Vitamin D 25 Hydroxy 6. Prediabetes (R73.03: Prediabetes) HGBA1C ordered Ordered: CBC w/ Auto Diff Comprehensive Metabolic Panel Est Preventative 40 to 64 years [address] HgbA1c Iron Level Lab Specimen Collect 22192 Lipid Panel PSA Screen, Total Thyroid Stimulating Hormone Vitamin D 25 Hydroxy 7. Prostate cancer screening (Z12.5: Encounter for screening for malignant neoplasm of prostate) PSA ordered Ordered: CBC w/ Auto Diff Comprehensive Metabolic Panel Est Preventative 40 to 64 years [address] HgbA1c Iron Level Lab Specimen Collect 71316 Lipid Panel PSA Screen, Total Thyroid Stimulating Hormone Vitamin D 25 Hydroxy 8. BMI 40.0-44.9, adult (Z68.41: Body mass index [BMI] 40.0-44.9, adult) BMI education given Ordered: CBC w/ Auto Diff Comprehensive Metabolic Panel ECG 12 Lead Adult Est Preventative 40 to 64 years [address] HgbA1c Iron Level Lipid Panel PSA Screen, Total Thyroid Stimulating Hormone Vitamin D 25 Hydroxy 9. Former smoker (Z87.891: Personal history of nicotine dependence) continue not smoking Ordered: CBC w/ Auto Diff Comprehensive Metabolic Panel Est Preventative 40 to 64 years [address] HgbA1c Iron Level Lipid Panel PSA Screen, Total Thyroid Stimulating Hormone Vitamin D 25 Hydroxy Follow-up With When Contact Information Kristie Syed, ARTIS, MED In 4 weeks 05/20/[address] [place] [address] [facility] (1) Additional Instructions: Problem List/Past Medical History Ongoing Bilateral numbness and tingling of arms and legs BMI 40.0-44.9, adult Broken tooth Chills (more content not included)...NormalDetwiler Memorial HospitalComment on above:Result Comment: Electronically Signed By: Kristie Syed\.br\Date and Time Signed: 04/24/25 10:37 QXMMnjD1rxq 15-27-1813RoK3e (Bld) [Mass fraction] 5.8 %Normal<=5.9Det[facility] Memorial HospitalComment on above:Performed By: #### [id number] #### [facility] [address] [place], [place] [address]Jiaegz 49-16-3233Oezq859 microgram/pZAsclyq32-265SpdfkdDetwiler Memorial HospitalComment on above:Performed By: #### [id number] #### [facility] [address] [place], [place] [address]Kcwlr Panelon 69-74-3037Gxedhugzxpx [Mass/Vol]197 mg/dLNormal 120-200Det[facility] Memorial HospitalComment on above:Performed By: #### [id number] #### [facility] [address] [place], [place] [address]Dqkhnwireqp in HDL [Mass/Vol]61 mg/dLInvalid Interpretation CodeDetwiler Memorial HospitalComment on above:Result Comment: '>= 60 LOW RISK' '<= 40 HIGH RISK'Performed By: #### [id number] #### [facility] [address] [place], [place] [address]Yjvqoisxdqr in LDL [Mass/Vol]131 mg/dLHigh<=129Det[facility] Memorial HospitalComment on above:Performed By: #### [id number] #### [facility] [address] [place], [place] [address]Zxhgscwzcfh in VLDL [Mass/Vol]13 mg/dLNormal7-40Det[facility] Memorial HospitalComment on above:Performed By: #### [id number] #### [facility] [address] [place], [place] [address]Stwzqttnklrx [Mass/Vol]65 mg/dLNormal<=149Det[facility] Memorial HospitalComment on above:Performed By: #### [id number] #### [facility] [address] [place], [place] [address]QAH Screen, Totalon 15-67-8093TJP Scrn Tot.0.8 ng/mLNormal 0.1-3.5[facility] Medical CenterComment on above:Result Comment: The concentration of PSA determined by different manufacturers can vary due to diffe rences in assay methods and reagent specificity. Values obtained from different assay methods cannot be used interchangeably. The methodology used for this result was chemiluminescence using [employer]'s Access [employer] PSA reagent.Performed By: #### [id number] #### [facility] [address] [place], [place] [address]Ptpejwgg Letteron 25-25-9995Sxymspma LetterProvider Letter April 24, 2025 STEVIE MIKE [address] [place] [address] : 1975 To Whom It May Concern, Please excuse above patient from work. Date of Appointment: 04/24/2025 May Return to Work On: 04/24/2025 Sincerely, [address] [address] BwylhvGmclftDetwiler Memorial HospitalTSHon 18-06-0584SHQ Qn1.54 m[IU]/LNormal0.34-5.60[facility] HospitalComment on above:Performed By: #### [id number] #### [facility] [address] [place], [place] [address]Mazazum D 25 Hydroxyon 51-35-0667Uusirfa D 25 Ueieodk50.5 ng/mL Low30.0-100.0Det[facility] HospitalComment on above:Performed By: #### [id number] #### [facility] [address] [place], [place] [address]fPXAgt 00-93-5912uUHF63 mL/min/1.73 n8Gwwtvw>=59Det[facility] Memorial HospitalComment on above:Performed By: #### [id number] #### [facility] [address] [place], [place] [address]Nhkqxxchtk Visit Summaryon 62-04-8568Ybjutimcrz Visit Summary Ambulatory Visit Summary LUIS MIKEN Hernandez :1975 Visit Date:04/02/2025 Ambulatory Visit Instructions Your Diagnosis Neck pain, bilateral Your Care Team Attending Physician - ITZ CULLEN CNP Primary Care Physician - Kristie Syed This Is Your Medications List amlodipine (amLODIPine 5 mg Tab) hydrochlorothiazide-lisinopril (hydrochlorothiazide-lisinopril 25 mg-20 mg Tab) meloxicam (meloxicam 15 mg Tab) metformin (metformin 500 mg Tab) Procedures Performed Hernia. Discharge Vitals Temperature (Oral) 36.7 ???C Heart Rate (Peripheral) 79 Blood Pressure 140/90 Height 74 in Height 188.8 cm Weight 340.614 lb Weight 154.5 kg BMI 43.34 Medications What How Much When Instructions Unchanged amlodipine (amLODIPine 5 mg Tab) 1 Tablets By Mouth Every day Unchanged hydrochlorothiazide-lisinopril (hydrochlorothiazide-lisinopril 25 mg- 20 mg Tab) See instructions TAKE 1 TABLET BY MOUTH EVERY DAY Unchanged meloxicam (meloxicam 15 mg Tab) See instructions TAKE 1 TABLET BY MOUTH EVERY DAY Unchanged metformin (metformin 500 mg Tab) 1 Tablets By Mouth 2 times a day Allergies No Known Allergies Problems Ongoing - Any problem that you are currently receiving treatment for. BMI 40.0-44.9, adult Broken tooth Chills Cough COVID-19 virus detected Dizziness Fracture of tooth Headache Hypertension Injury of right lower leg Left otitis media Morbid obesity with BMI of 40.0-44.9, adult Neck pain on right side Obstructive sleep apnea syndrome Poison bekah Right ankle injury Seasonal allergies Sinus infection Swelling of right foot Tendonitis of finger Tooth pain Wellness examination Historical - Any problem that you are no longer receiving treatment for. ASTHMA Patient Survey You may receive a survey via text or e-mail asking about your office visit. Please share your experience with us by completing your survey. We appreciate your feedback and thank you for choosing us for your care. Patient Portal You may access all of your results and other medical record information on our secure patient portal. If you are not signed up for this yet, please contact [employer] at [phone] to get signed up today. Language Information Language assistance services are available as needed. [facility] Medicine Office/Clinic Noteon [id number] Medicine Office/Clinic NoteSaint [facility]/Clinic Note Chief Complaint left shoulder pain The patient complains of neck pain and shoulder discomfort. History of Present Illness 49-year-old male patient of [facility] [place] presenting with neck pain and shoulder discomfort. The pain began over the weekend, possibly related to physical activities such as setting up a tent or lifting a heavy chicken cooker. The pain is described as mild, rated at 4 out of 10, and is located at the bottom of the shoulder blade, with some discomfort extending into the arm. The patient has not taken any medication for the pain except for meloxicam, which was started recently for a foot nodule. The patient denies any recent injury to the neck and reports good strength and range of motion in the affected area. The patient has a history of hypertension, which was previously managed with medication following ahospitalization for high blood pressure. Current blood pressure readings are elevated at 140/90 mmHg, higher than previous measurements of 136/84 and 132/84. The patient reports caffeine intake earlier in the day, which may have contributed to the elevated blood pressure. Review of Systems PHQ Score Initial Depression Screen Score: 0 SCORE - Musculoskeletal: Reports mild neck pain and shoulder discomfort, denies recent injury. - Cardiovascular: Denies chest pain, palpitations, or syncope. - Neurological: Reports transient arm numbness upon waking, denies headaches or dizziness. Physical Exam Vitals & Measurements T: 36.7 ???C(Oral) HR: 79(Peripheral) BP: 140/90 SpO2: 97% HT: 188.8 cm HT: 74 in WT: 154.5 kg WT: 340.614 lb BMI: 43.34 General: alert, no acute distress Cardiovascular: regular rate and rhythm, normal peripheral perfusion Respiratory: Lungs CTA, respirations non labored Extremities: no deformity, no trauma Neurological: oriented x 4, LOC appropriate for age speech normal Musculoskeletal: Good strength in upper extremities, mild discomfort in the back of the left shoulder extending into the neck shoulder Assessment/Plan 1. Neck pain, bilateral (M54.2: Cervicalgia) - Plan to manage with muscle relaxants such as tizanidine, prescribed for use as needed for muscle strain. - Advised use of heat therapy and rest to alleviate symptoms. - Consideration of physical therapy if symptoms do not improve within a week. Ordered: tizanidine, 6 mg = 1 cap(s), Oral, TID, X 7 day(s), # 21 cap(s), Refills(s) 0, Pharmacy: [facility]/pharmacy #[id number], 188.8, cm, 04/02/25 15:01:00 EDT, Height/Length Dosing, 154.5, kg, 04/02/25 15:01:00 EDT, Weight Dosing 2. Hypertension (I10: Essential (primary) hypertension) - Continue current antihypertensive regimen, monitor blood pressure closely. - Advised to limit caffeine intake to help manage blood pressure levels. Ordered: tizanidine, 6 mg = 1 cap(s), Oral, TID, X 7 day(s), # 21 cap(s), Refills(s) 0, Pharmacy: [facility]/pharmacy #[id number], 188.8, cm, 04/02/25 15:01:00 EDT, Height/Length Dosing, 154.5, kg, 04/02/25 15:01:00 EDT, Weight Dosing Follow-up No qualifying data available Patient Education Neck Exercises Problem List/Past Medical History Ongoing BMI 40.0-44.9, adult Broken tooth Chills Cough COVID-19 virus detected Dizziness Fracture of tooth Headache Hypertension Injury of right lower leg Left otitis media Morbid obesity with BMI of 40.0-44.9, adult Neck pain on right side Obstructive sleep apnea syndrome Poison bekah Right ankle injury Seasonal allergies Sinus infection Swelling of right foot Tendonitis of finger Tooth pain Wellness examination Historical ASTHMA Procedure/Surgical History Hernia. Medications amLODIPine 5 mg Tab, 5 mg= 1 tab(s), Oral, Daily hydrochlorothiazide-lisinopril 25 mg-20 mg Tab, See Instructions meloxicam 15 mg Tab, See Instructions, 1 refills metformin 500 mg Tab, 500 mg= 1 tab(s), Oral, BID, 3 refills tiZANidine 6 mg Cap, 6 mg= 1 cap(s), Oral, TID Allergies No Known Allergies Social History Alcohol Current. Beer. Daily., 06/11/2024 Substance Abuse Never., 06/11/2024 Tobacco Former smoker, quit more than 30 days ago, quit 13 years ago Tobacco Use:., 02/18/2025 Family History Asthma: Father. Diabetes mellitus type 1: Father. Heart disease: Father.[facility] CenterComment on above:Result Comment: Electronically Signed By: ITZ CULLEN CNP\radha\Date and Time Signed: 04/02/25 15:19 EDTProvider Letteron [id number] LetterProvider Letter April 02, 2025 STEVIE MIKE [address] [place] [address] : 1975 To Whom It May Concern, Please excuse above patient from work, due to a doctors appointment Date of Illness: From: _ To: _ May Return to Work On:04-02-25 Restrictions: _ Comments: _ Sincerely, [place] [address] LjkvazPffislUniversity Hospitals Parma Medical CenterAmbulatory Visit Summaryon [id number] Visit SummaryAmbulatory Visit Summary STEVIE MIKE :1975 Visit Date:02/18/2025 Ambulatory Visit Instructions Your Diagnosis BMI 40.0-44.9, adult, Body mass index [BMI] 40.0-44.9, adult Former smoker Class 3 severe obesity due to excess calories with body mass index (BMI) of 40.0 to 44.9 in adult Morbid (severe) obesity due to excess calories Your Care Team Attending Physician - ITZ CULLEN CNP Primary Care Physician - Kristie Syed This Is Your Medications List amlodipine (amLODIPine 5 mg Tab) hydrochlorothiazide-lisinopril (hydrochlorothiazide-lisinopril 25 mg-20 mg Tab) meloxicam (meloxicam 15 mg Tab) metformin (metformin 500 mg Tab) methylPREDNISolone (Medrol 4 mg Tab) Procedures Performed Hernia. Discharge Vitals Temperature (Temporal Artery) 36.4 ???C Heart Rate (Peripheral) 74 Respiratory Rate 20 Blood Pressure 132/84 Height 188.8 cm Height 74 in Weight 158.8 kg Weight 350.094 lb BMI 44.55 Medications What How Much When Instructions Unchanged amlodipine (amLODIPine 5 mg Tab) 1 Tablets By Mouth Every day Unchanged hydrochlorothiazide-lisinopril (hydrochlorothiazide-lisinopril 25 mg- 20 mg Tab) See instructions TAKE 1 TABLET BY MOUTH EVERY DAY Unchanged meloxicam (meloxicam 15 mg Tab) See instructions TAKE 1 TABLET BY MOUTH EVERY DAY Unchanged metformin (metformin 500 mg Tab) 1 Tablets By Mouth 2 times a day Unchanged methylPREDNISolone (Medrol 4 mg Tab) 1 Packets By Mouth As Directed Duration: 6 Days as directed on package labeling Allergies No Known Allergies Problems Ongoing - Any problem that you are currently receiving treatment for. BMI 40.0-44.9, adult Broken tooth Chills Cough COVID-19 virus detected Dizziness Fracture of tooth Headache Hypertension Injury of right lower leg Left otitis media Morbid obesity with BMI of 40.0-44.9, adult Neck pain on right side Obstructive sleep apnea syndrome Poison bekah Right ankle injury Seasonal allergies Sinus infection Swelling of right foot Tendonitis of finger Tooth pain Wellness examination Historical - Any problem that you are no longer receiving treatment for. ASTHMA Patient Survey You may receive a survey via text or e-mail asking about your office visit. Please share your experience with us by completing your survey. We appreciate your feedback and thank you for choosing us for your care. Patient Portal You may access all of your results and other medical record information on our secure patient portal. If you are not signed up for this yet, please contact [employer] at [phone] to get signed up today. Language Information Language assistance services are available as needed. [facility] Medicine Office/Clinic Noteon [id number] Medicine Office/Clinic NoteFamassachusetts mental health center Medicine Office/Clinic Note Chief Complaint The patient complains of pain in the right foot. HPI Staff Stevie is a 49 year old male presenting with left foot pain would like to discuss getting x ray and referral PATRICIO taking meloxicam and sent in Medrol pack ... just got this yesterday, has not take any of this yet he is wanting to see about getting a foot doctor. he is willing to stay with [facility] has feeling better through the week but was helping move this weekend and got worse I have reviewed and verified the staff HPI to be accurate for this encounter. History of Present Illness 49-year-old male presenting with pain in the right foot due to bone spurs. The pain has been exacerbated by a recent incident where a piece of wood fell on the foot, a recurring event over his lifetime. The patient reports that the pain is localized around the heel and has recently spread to the top of the foot. The patient has been using meloxicam, which provides marginal relief, and has been prescribed a steroid to manage inflammation. He has not yet started the steroid treatment but plans to do so. The patient has a history of trauma to the right foot from falling wood, which has occurred approximately 20 times over his life. He is seeking a referral to a heavy equipment technician for further evaluation and management of his foot pain. Review of Systems PHQ Score Initial Depression Screen Score: 0 SCORE - Musculoskeletal: Reports pain in the right foot, exacerbated by trauma, with pain spreading from the heel to the top of the foot. - Respiratory: Denies any respiratory symptoms, lungs clear to auscultation. Physical Exam Vitals & Measurements T: 36.4 ???C(Temporal Artery) HR: 74(Peripheral) RR: 20 BP: 132/84 SpO2: 99% HT: 74 in HT: 188.8 cm WT: 350.094 lb WT: 158.8 kg BMI: 44.55 - Musculoskeletal: No bruising observed on the right foot. - Respiratory: Lungs clear to auscultation, no wheezes or rales noted. Assessment/Plan 1. Right foot pain (M79.671: Pain in right foot) Prescribed meloxicam for pain management, with marginal relief reported. - Prescribed a steroid for inflammation control, yet to be started by the patient. Ordered: [facility] External Ambulatory Referral 2. BMI 40.0-44.9, adult (Z68.41: Body mass index [BMI] 40.0-44.9, adult) BMI 44.55 3. Former smoker (Z87.891: Personal history of nicotine dependence) Encouraged to continue is a non-smoker 4. Class 3 severe obesity due to excess calories with body mass index (BMI) of 40.0 to 44.9 in adult (E66.813: Obesity, class 3) The standard range for ages 18 and older is >=18.5 and < 25 kg/m2. Your BMI today was above this range, this falls in the overweight to obese category and there are medical benefits to weight loss. We can offer counselling, referral, and/or medical support in addressing this problem. Your BMIand weight management will be followed at subsequent visits. Follow-up No qualifying data available Patient Education Foot Pain Problem List/Past Medical History Ongoing BMI 40.0-44.9, adult Broken tooth Chills Cough COVID-19 virus detected Dizziness Fracture of tooth Headache Hypertension Injury of right lower leg Left otitis media Morbid obesity with BMI of 40.0-44.9, adult Neck pain on right side Obstructive sleep apnea syndrome Poison bekah Right ankle injury Seasonal allergies Sinus infection Swelling of right foot Tendonitis of finger Tooth pain Wellness examination Historical ASTHMA Procedure/Surgical History Hernia. Medications amLODIPine 5 mg Tab, 5 mg= 1 tab(s), Oral, Daily hydrochlorothiazide-lisinopril 25 mg-20 mg Tab, See Instructions Medrol 4 mg Tab, 1 packet(s), Oral, As Directed meloxicam 15 mg Tab, See Instructions, 1 refills metformin 500 mg Tab, 500 mg= 1 tab(s), Oral, BID, 3 refills Allergies No Known Allergies Social History Alcohol Current. Beer. Daily., 06/11/2024 Substance Abuse Never., 06/11/2024 Tobacco Former smoker, quit more than 30 days ago, quit 13 years ago Tobacco Use:., 02/18/2025 Family History Asthma: Father. Diabetes mellitus type 1: Father. Heart disease: Father.[facility] CenterComment on above:Result Comment: Electronically Signed By: ITZ CULLEN CNP\.br\Date and Time Signed: 02/18/25 16:40 EDTFamily Medicine Office/Clinic Noteon [id number] Medicine Office/Clinic NoteFamily Medicine Office/Clinic Note HPI Staff Stevie is a 49 year old male presenting with left foot swollen and sore, can not put on shoe Onset: Location: right foot Characteristics: sore, swollen, can not put on shoe around heel he said it was black and blue over the weekend, took Meloxicam did seem to help Refill for Metformin Bone spur from X ray over winter, and then drop wood on it within a couple weeks History of Present Illness swelling better. sent in medrol dose pack. does not look like gout arthritis Review of Systems PHQ Score Initial Depression Screen Score: 0 SCORE Physical Exam Vitals & Measurements T: 36.3 ???C(Temporal Artery) HR: 84(Peripheral) RR: 18 BP: 136/84 SpO2: 99% HT: 74 in HT: 188.8 cm WT: 158.0 kg WT: 348.33 lb BMI: 44.33 General: alert, no acute distress ENMT: oral mucosa moist, no pharyngeal erythema or exudate Cardiovascular: regular rate and rhythm, normal peripheral perfusion Respiratory: Lungs CTA, respirations non labored Extremities: no deformity, no trauma Neurological: oriented x 4, LOC appropriate for age, CN II-XII intact, motor strength equal & normal bilaterally, speech normal Assessment/Plan 1. Swelling of right foot (M79.89: Other specified soft tissue disorders) over the weekend pt had pain and swelling of right foot. he could not even get a shoe on. it is much improved today. still a little tender along lateral side of foot. he had 2 injuries within a few months of each other to that foot. I fear it is arthritis. does not appear to be gout. pt states the pain and swelling improved with meloxicam. will send medrol dose pack if he flares up again. RTC as needed 2. BMI 40.0-44.9, adult, (Z68.41: Body mass index [BMI] 40.0-44.9, adult)Body mass index [BMI] 40.0-44.9, adult BMI educaiton 3. Class 3 severe obesity due to excess calories with body mass index (BMI) of 40.0 to 44.9 in adult (E66.813: Obesity, class 3) 4. Smoker (F17.200: Nicotine dependence, unspecified, uncomplicated) consider not smoking Morbid (severe) obesity due to excess calories (E66.01: Morbid (severe) obesity due to excess calories) Orders: brompheniramine/dextromethorphan/PSE, 5 mL, Oral, QID for cough and congestion, 200 mL, Refill(s) 0, [facility]/pharmacy #[id number], 188.8, cm, 11/22/24 11:41:00 EDT, Height/Length Dosing, 160.2, kg, 11/22/24 11:41:00 EDT, Weight Dosing metformin, 500 mg = 1 tab(s), Oral, BID, # 180 tab(s), Refills(s) 3, Pharmacy: [facility]/pharmacy #[id number], 188.8, cm, 10/16/23 10:29:00 EDT, Height/Length Dosing, 160.5, kg, 10/16/23 10:29:00 EDT, Weight Dosing metformin, 500 mg = 1 tab(s), Oral, BID, # 180 tab(s), Refills(s) 3, Pharmacy: [facility]/pharmacy #[id number], 188.8, cm, 02/12/25 17:27:00 EDT, Height/Length Dosing, 158, kg, 02/12/25 17:27:00 EDT, Weight Dosing methylPREDNISolone, = 1 packet(s), Oral, As Directed, as directed on package labeling, X 6 day(s), # 21 tab(s), Refills(s) 0, Pharmacy: [facility]/pharmacy #[id number], 188.8, cm, 02/12/25 17:27:00 EDT, Height/Length Dosing, 158, kg, 02/12/25 17:27:00 EDT, Weight Dosing Follow-up No qualifying data available Problem List/Past Medical History Ongoing BMI 40.0-44.9, adult Broken tooth Chills Cough COVID-19 virus detected Dizziness Fracture of tooth Headache Hypertension Injury of right lower leg Left otitis media Morbid obesity with BMI of 40.0-44.9, adult Neck pain on right side Obstructive sleep apnea syndrome Poison bekah Right ankle injury Seasonal allergies Sinus infection Swelling of right foot Tendonitis of finger Tooth pain Wellness examination Historical ASTHMA Procedure/Surgical History Hernia. Medications amLODIPine 5 mg Tab, 5 mg= 1 tab(s), Oral, Daily hydrochlorothiazide-lisinopril 25 mg-20 mg Tab, See Instructions Medrol 4 mg Tab, 1 packet(s), Oral, As Directed meloxicam 15 mg Tab, See Instructions, 1 refills metformin 500 mg Tab, 500 mg= 1 tab(s), Oral, BID, 3 refills Allergies No Known Allergies Social History Alcohol Current. Beer. Daily., 06/11/2024 Substance Abuse Never., 06/11/2024 Tobacco Former smoker, quit more than 30 days ago, quit 13 years ago Tobacco Use:., 02/12/2025 Family History Asthma: Father. Diabetes mellitus type 1: Father. Heart disease: Father.[facility] CenterComment on above:Result Comment: Electronically Signed By: Kristie Syed\Date and Time Signed: 02/13/25 15:51 EDTFamily Medicine Office/Clinic Noteon [id number] Medicine Office/Clinic NoteFamily Medicine Office/Clinic Note HPI Staff Stevie is a 49 year old male presenting for rash Onset: 1 week Location: bilateral arms Description: red rash Rash symptoms: itches Pt cut wood last weekend , trying to keep it covered. also from cutting wood had some sinus congestion would like refill on meloxicam History of Present Illness pt presents today for poison bekah Review of Systems PHQ Score Initial Depression Screen Score: 0 SCORE Physical Exam Vitals & Measurements HR: 78(Peripheral) RR: 18 BP: 158/98 SpO2: 98% HT: 188.8 cm HT: 74 in WT: 353.18 lb WT: 160.20 kg BMI: 44.94 General: alert, no acute distress ENMT: oral mucosa moist, no pharyngeal erythema or exudate Cardiovascular: regular rate and rhythm, normal peripheral perfusion Respiratory: Lungs CTA, respirations non labored Extremities: no deformity, no trauma Neurological: oriented x 4, LOC appropriate for age, CN II-XII intact, motor strength equal & normal bilaterally, speech normal Assessment/Plan 1. Poison bekah (L23.7: Allergic contact dermatitis due to plants, except food) pt presents today with poison bekah on GENESIS arms. he was cutting wood the other day. says I get this every years. will give 60mg kenalog in office today. Ordered: triamcinolone, 40 mg = 1 mL, Injection, IntraMuscular, Once, Stop date 11/22/24 11:52:00 EDT, Routine, Start date 11/22/24 11:52:00 EDT, 11/22/24 11:52:00 EDT 2. Seasonal allergies (J30.2: Other seasonal allergic rhinitis) kenalog given. pt is also congested and coughing. will send z hemalatha Ordered: triamcinolone, 40 mg = 1 mL, Injection, IntraMuscular, Once, Stop date 11/22/24 11:52:00 EDT, Routine, Start date 11/22/24 11:52:00 EDT, 11/22/24 11:52:00 EDT 3. BMI 40.0-44.9, adult (Z68.41: Body mass index [BMI] 40.0-44.9, adult) BMI education Ordered: triamcinolone, 40 mg = 1 mL, Injection, IntraMuscular, Once, Stop date 11/22/24 11:52:00 EDT, Routine, Start date 11/22/24 11:52:00 EDT, 11/22/24 11:52:00 EDT Orders: azithromycin, = 1 packet(s), Oral, As Directed, as directed on package labeling, X 5 day(s), # 6 tab(s), Refills(s) 0, Pharmacy: [facility]/pharmacy #[id number], 188.8, cm, 11/22/24 11:41:00 EDT, Height/Length Dosing, 160.2, kg, 11/22/24 11:41:00 EDT, Weight Dosing meloxicam, See Instructions, TAKE 1 TABLET BY MOUTH EVERY DAY, # 30 tab(s), Refills(s) 0, Pharmacy:[id number], 188.8, cm, 10/07/24 11:05:00 EDT, Height/Length Dosing, 154.6, kg, 10/07/24 11:05:00 EDT, Weight Dosing meloxicam, See Instructions, TAKE 1 TABLET BY MOUTH EVERY DAY, # 30 tab(s), Refills(s) 1, Pharmacy:[facility]/pharmacy #[id number], 188.8, cm, 11/22/24 11:41:00 EDT, Height/Length Dosing, 160.2, kg, 11/22/24 11:41:00 EDT, Weight Dosing Follow-up No qualifying data available Problem List/Past Medical History Ongoing BMI 40.0-44.9, adult BMI 45.0-49.9, adult Broken tooth Chills Cough COVID-19 virus detected Dizziness Fracture of tooth Headache Hypertension Injury of right lower leg Left otitis media Neck pain on right side Obstructive sleep apnea syndrome Poison bekah Right ankle injury Seasonal allergies Sinus infection Tendonitis of finger Tooth pain Wellness examination Historical ASTHMA Procedure/Surgical History Hernia. Medications amLODIPine 5 mg Tab, 5 mg= 1 tab(s), Oral, Daily azithromycin 250 mg Tab, 1 packet(s), Oral, As Directed hydrochlorothiazide-lisinopril 25 mg-20 mg Tab, See Instructions meloxicam 15 mg Tab, See Instructions, 1 refills metformin 500 mg Tab, 500 mg= 1 tab(s), Oral, BID, 3 refills Allergies No Known Allergies Social History Alcohol Current. Beer. Daily., 06/11/2024 Substance Abuse Never., 06/11/2024 Tobacco Former smoker, quit more than 30 days ago, quit 13 years ago Tobacco Use:., 06/11/2024 Family History Asthma: Father. Diabetes mellitus type 1: Father. Heart disease: Father.[facility] CenterComment on above:Result Comment: Electronically Signed By: Tianna ZHANG, Kristie José.br\Date and Time Signed: 11/22/24 12:54 EDTAmbulatory Visit Summaryon [id number] Visit Summary Ambulatory Visit Summary STEVIE MIKE :1975 Visit Date:10/07/2024 Ambulatory Visit Instructions Your Diagnosis BMI 40.0-44.9, adult Non-smoker Your Care Team Attending Physician - Kristie Syed Primary Care Physician - Kristie Syed This Is Your Medications List amlodipine (amLODIPine 5 mg Tab) hydrochlorothiazide-lisinopril (hydrochlorothiazide-lisinopril 25 mg-20 mg Tab) meloxicam (meloxicam 15 mg Tab) metformin (metformin 500 mg Tab) Procedures Performed Hernia. Discharge Vitals Temperature (Tympanic) 36.7 ???C Heart Rate (Peripheral) 74 Respiratory Rate 18 Blood Pressure 138/86 Height 188.8 cm Height 74 in Weight 154.6 kg Weight 340.834 lb BMI 43.37 Medications What How Much When Why Instructions Unchanged amlodipine (amLODIPine 5 mg Tab) 1 Tablets By Mouth Every day Unchanged hydrochlorothiazide-lisinopril (hydrochlorothiazide-lisinopril 25 mg- 20 mg Tab) See instructions TAKE 1 TABLET BY MOUTH EVERY DAY Unchanged meloxicam (meloxicam 15 mg Tab) 1 Tablets By Mouth Every day Right ankle injury Injury ofright lower leg BMI 40.0-44.9, adult Non-smoker Unchanged metformin (metformin 500 mg Tab) 1 Tablets By Mouth 2 times a day Allergies No Known Allergies Problems Ongoing - Any problem that you are currently receiving treatment for. BMI 40.0-44.9, adult BMI 45.0-49.9, adult Broken tooth Chills Cough COVID-19 virus detected Dizziness Fracture of tooth Headache Hypertension Injury of right lower leg Neck pain on right side Obstructive sleep apnea syndrome Right ankle injury Tendonitis of finger Tooth pain Wellness examination Historical - Any problem that you are no longer receiving treatment for. ASTHMA Patient Survey You may receive a survey via text or e-mail asking about your office visit. Please share your experience with us by completing your survey. We appreciate your feedback and thank you for choosing us for your care. [facility] Medicine Office/Clinic Noteon [id number] Medicine Office/Clinic NoteSaint [facility] Medicine Office/Clinic Note HPI Staff Stevie is a 48 year old male presenting for acute sick visit Respiratory C/O: Onset: 1 week ago Body aches: no Chest congestion: yes Chills: yes Cough: yes Sputum production: yes denies SOB Sore throat: no Ear complaints: yes popping pressure Eye itching/watering: no Fever: no Headache: no Nasal congestion: yes Nasal discharge: yes Poor appetite: no Reduced activity: no Sinus pain/pressure: yes Sneezing: no Wheezing: no Ill contacts: no Remedies tried: Mucinex Questions/Concerns: Pt refuses to be checked for covid or flu today History of Present Illness pt presents today for URI symptoms Review of Systems PHQ Score Initial Depression Screen Score: 0 SCORE Physical Exam Vitals & Measurements T: 36.7 ???C(Tympanic) HR: 74(Peripheral) RR: 18 BP: 138/86 SpO2: 95% HT: 74 in HT: 188.8 cm WT: 154.6 kg WT: 340.834 lb BMI: 43.37 General: alert, no acute distress ENMT: oral mucosa moist, no pharyngeal erythema or exudate, left canal and TM red, both TM full of fluid, sinus tnederness Cardiovascular: regular rate and rhythm, normal peripheral perfusion Respiratory: Lungs CTA, respirations non labored Extremities: no deformity, no trauma Neurological: oriented x 4, LOC appropriate for age, CN II-XII intact, motor strength equal & normal bilaterally, speech normal Assessment/Plan 1. Left otitis media (H66.92: Otitis media, unspecified, left ear) left OM media noted on exam. will teat with augmentin. pt just finish medrol dose pack for ankle injury. Ordered: amoxicillin-clavulanate, = 1 tab(s), Oral, q12hr, X 7 day(s), # 14 tab(s), Refills(s) 0, Pharmacy: [facility]/pharmacy #[id number], 188.8, cm, 10/07/24 11:05:00 EDT, Height/Length Dosing, 154.6, kg, 10/07/24 11:05:00 EDT, Weight Dosing 2. Sinus infection (J32.9: Chronic sinusitis, unspecified) augmentin sent Ordered: amoxicillin-clavulanate, = 1 tab(s), Oral, q12hr, X 7 day(s), # 14 tab(s), Refills(s) 0, Pharmacy: [facility]/pharmacy #[id number], 188.8, cm, 10/07/24 11:05:00 EDT, Height/Length Dosing, 154.6, kg, 10/07/24 11:05:00 EDT, Weight Dosing 3. BMI 40.0-44.9, adult (Z68.41: Body mass index [BMI] 40.0-44.9, adult) BMI education Ordered: amoxicillin-clavulanate, = 1 tab(s), Oral, q12hr, X 7 day(s), # 14 tab(s), Refills(s) 0, [id number] 188.8, cm, 10/07/24 11:05:00 EDT, Height/Length Dosing, 154.6, kg, 10/07/24 11:05:00 EDT, Weight Dosing 4. Non-smoker (Z78.9: Other specified health status) continue not smoking Ordered: amoxicillin-clavulanate, = 1 tab(s), Oral, q12hr, X 7 day(s), # 14 tab(s), Refills(s) 0, [id number] 188.8, cm, 10/07/24 11:05:00 EDT, Height/Length Dosing, 154.6, kg, 10/07/24 11:05:00 EDT, Weight Dosing Follow-up No qualifying data available Problem List/Past Medical History Ongoing BMI 40.0-44.9, adult BMI 45.0-49.9, adult Broken tooth Chills Cough COVID-19 virus detected Dizziness Fracture of tooth Headache Hypertension Injury of right lower leg Left otitis media Neck pain on right side Obstructive sleep apnea syndrome Right ankle injury Sinus infection Tendonitis of finger Tooth pain Wellness examination Historical ASTHMA Procedure/Surgical History Hernia. Medications amLODIPine 5 mg Tab, 5 mg= 1 tab(s), Oral, Daily Augmentin 875 mg oral tablet, 1 tab(s), Oral, q12hr hydrochlorothiazide-lisinopril 25 mg-20 mg Tab, See Instructions meloxicam 15 mg Tab, 15 mg= 1 tab(s), Oral, Daily metformin 500 mg Tab, 500 mg= 1 tab(s), Oral, BID, 3 refills Allergies No Known Allergies Social History Alcohol Current. Beer. Daily., 06/11/2024 Substance Abuse Never., 06/11/2024 Tobacco Former smoker, quit more than 30 days ago, quit 13 years ago Tobacco Use:., 06/11/2024 Family History Asthma: Father. Diabetes mellitus type 1: Father. Heart disease: Father.[facility] CenterComment on above:Result Comment: Electronically Signed By: Kristie Syed\.br\Date and Time Signed: 10/07/24 11:40 EDTAmbulatory Visit Summaryon [id number] Visit Summary Ambulatory Visit Summary STEVIE MIKE :1975 Visit Date:09/25/2024 Ambulatory Visit Instructions Your Diagnosis BMI 40.0-44.9, adult Non-smoker Your Care Team Attending Physician - Kristie Syed Primary Care Physician - Kristie Syed This Is Your Medications List amlodipine (amLODIPine 5 mg Tab) amlodipine (amLODIPine 5 mg Tab) hydrochlorothiazide-lisinopril (hydrochlorothiazide-lisinopril 25 mg-20 mg Tab) metformin (metformin 500 mg Tab) Procedures Performed Hernia. Discharge Vitals Heart Rate (Peripheral) 80 Respiratory Rate 18 Blood Pressure 140/86 Height 188.8 cm Height 74 in Weight 156.8 kg Weight 345.684 lb BMI 43.99 Medications What How Much When Instructions Unchanged amlodipine (amLODIPine 5 mg Tab) 1 Tablets By Mouth Every day Unchanged amlodipine (amLODIPine 5 mg Tab) 1 Tablets TAKE 1 TABLET BY MOUTH EVERY DAY Unchanged hydrochlorothiazide-lisinopril (hydrochlorothiazide-lisinopril 25 mg- 20 mg Tab) See instructions TAKE 1 TABLET BY MOUTH EVERY DAY Unchanged metformin (metformin 500 mg Tab) 1 [...] you for choosing us for your care. [facility] Medicine Office/Clinic Noteon [id number] Medicine Office/Clinic NoteSaint [facility] Medicine Office/Clinic Note HPI Staff Stevie is a 48 year old male presenting for pain Pain characteristics: Pain location: right lower leg Intensity: 10 Onset: 2 weeks Medication used: was out plowing snow and fell hit inner right ankle on plow. Area was brusied. Intermittent dull aching/shooting pain with moving foot up and down or twisting it just right. History of Present Illness right ankle injury, right lower leg injury. pt slipped on ice while plowing snow. slipped on ice and hit right ankle/lower leg on plow. Review of Systems PHQ Score Initial Depression Screen Score: 0 SCORE Physical Exam Vitals & Measurements HR: 80(Peripheral) RR: 18 BP: 140/86 SpO2: 97% HT: 74 in HT: 188.8 cm WT: 156.8 kg WT: 345.684 lb BMI: 43.99 General: alert, no acute distress ENMT: oral mucosa moist, no pharyngeal erythema or exudate Cardiovascular: regular rate and rhythm, normal peripheral perfusion Respiratory: Lungs CTA, respirations non labored Extremities: no deformity, no trauma Neurological: oriented x 4, LOC appropriate for age, CN II-XII intact, motor strength equal & normal bilaterally, speech normal right inner aspect of ankle is still swollen and tender to touch, lower tibia (above ankle) area isswollen and tender to touch Assessment/Plan 1. Right ankle injury (S99.911A: Unspecified injury of right ankle, initial encounter) right inner aspect of ankle is swollen. pt states his whole ankle and foot was bruised when it first occurred. pt has pain when moving his foot up and down and twisting ankle. will order x ray. to bedone at [facility] Ordered: meloxicam, 15 mg = 1 tab(s), Oral, Daily, # 30 tab(s), Refills(s) 0, Pharmacy: [facility]/pharmacy #[id number], 188.8, cm, 02/26/25 15:22:00 EST, Height/Length Dosing, 156.8, kg, 09/25/24 15:22:00 EST, Weight Dosing methylPREDNISolone, = 1 packet(s), Oral, As Directed, as directed on package labeling, X 6 day(s), # 21 tab(s), Refills(s) 0, [id number] 188.[facility], cm, 09/25/24 15:22:00 EST, Height/Length Dosing, 156.8, kg, 09/25/24 15:22:00 EST, Weight Dosing 2. Injury of right lower leg (S89.91XA: Unspecified injury of right lower leg, initial encounter) x ray ordered. right leg above ankle is swollen and tender to touch. will order medrol dose pack and meloxicam Ordered: meloxicam, 15 mg = 1 tab(s), Oral, Daily, # 30 tab(s), Refills(s) 0, [id number] 188.8, cm, 09/25/24 15:22:00 EST, Height/Length Dosing, 156.8, kg, 09/25/24 15:22:00 EST, Weight Dosing methylPREDNISolone, = 1 packet(s), Oral, As Directed, as directed on package labeling, X 6 day(s), # 21 tab(s), Refills(s) 0, [id number] 188.8, cm, 09/25/24 15:22:00 EST, Height/Length Dosing, 156.8, kg, 09/25/24 15:22:00 EST, Weight Dosing 3. BMI 40.0-44.9, adult (Z68.41: Body mass index [BMI] 40.0-44.9, adult) BMI education given Ordered: brompheniramine/dextromethorphan/PSE, 5 mL, Oral, QID for cold symptoms, 200 mL, Refill(s) 0, [facility]/pharmacy #[id number], 188.8, cm, 06/11/24 9:12:00 EST, Height/Length Dosing, 155.4, kg, 06/11/24 9:12:00 EST, Weight Dosing meloxicam, 15 mg = 1 tab(s), Oral, Daily, # 30 tab(s), Refills(s) 0, [id number] 188.8, cm, 09/25/24 15:22:00 EST, Height/Length Dosing, 156.8, kg, 09/25/24 15:22:00 EST, Weight Dosing methylPREDNISolone, = 1 packet(s), Oral, As Directed, as directed on package labeling, X 6 day(s), # 21 tab(s), Refills(s) 0, [id number] 188.8, cm, 09/25/24 15:22:00 EST, Height/Length Dosing, 156.8, kg, 09/25/24 15:22:00 EST, Weight Dosing 4. Non-smoker (Z78.9: Other specified health status) continue not smoking Ordered: meloxicam, 15 mg = 1 tab(s), Oral, Daily, # 30 tab(s), Refills(s) 0, [id number] 188.8, cm, 09/25/24 15:22:00 EST, Height/Length Dosing, 156.8, kg, 09/25/24 15:22:00 EST, Weight Dosing methylPREDNISolone, = 1 packet(s), Oral, As Directed, as directed on package labeling, X 6 day(s), # 21 tab(s), Refills(s) 0, [id number], 188.8, cm, 09/25/24 15:22:00 EST, Height/Length Dosing, 156.8, kg, 09/25/24 15:22:00 EST, Weight Dosing Orders: amlodipine, 2.5 mg = 1 tab(s), Oral, Daily, # 90 tab(s), Refills(s) 3, [id number] 188.8, cm, 07/12/23 9:49:00 EST, Height/Length Dosing, 159.2, kg, 07/12/23 9:49:00 EST, Weight Dosing Follow-up No qualifying data available Problem List/Past Medical History Ongoing BMI 40.0-44.9, adult BMI 45.0-49.9, adult Broken tooth Chills Cough COVID-19 virus detected Dizziness Fracture of tooth Headache Hypertension Injury of right lower leg Neck pain on right side Obstructive sleep apnea syndrome Right ankle injury Tendonitis of finger Tooth pain Wellness examination Historical ASTHMA Procedure/Surgical History Hernia. Medications amLODIPine 5 mg Tab, 5 mg= 1 tab(s), Oral, Daily amLODIPine 5 mg Tab, 5 mg= 1 tab(s) hydrochlorothiazide-lisinopril 25 mg-20 mg Tab, See I (more content not included)...[facility] CenterComment on above:Result Comment: Electronically Signed By: Kristie Syed\.br\Date and Time Signed: 09/25/24 15:48 ESTProvider Letteron [id number] LetterProvider Letter September 25, 2024 STEVIE MIKE [address] [place] [address] : 1975 To Whom It May Concern, Please excuse above patient from work. Date of Illness: From: To: 09/25/2024 May Return to Work On:09/26/2024 Sincerely, [facility] [address] [place], [place] [id number] AgwwcnVvrrzjUniversity Hospitals Parma Medical CenterAmbulatory Visit Summaryon [id number] Visit SummaryAmbulatory Visit Summary STEVIE MIKE :1975 Visit Date:06/11/2024 Ambulatory Visit Instructions Your Diagnosis Adult BMI 40.0-44.9 kg/sq m Former smoker Your Care Team Attending Physician - Kristie Syed Primary Care Physician - Kristie Syed This Is Your Medications List amlodipine (amLODIPine 2.5 mg Tab) hydrochlorothiazide-lisinopril (hydrochlorothiazide-lisinopril 25 mg-20 mg Tab) metformin (metformin 500 mg Tab) Procedures Performed Hernia. Discharge Vitals Temperature (Tympanic) 36.9 ???C Heart Rate (Peripheral) 76 Respiratory Rate 18 Blood Pressure 146/92 Height 188.8 cm Height 74 in Weight 155.45 kg Weight 342.708 lb BMI 43.61 Medications What How Much When Instructions Unchanged amlodipine (amLODIPine 2.5 mg Tab) 1 Tablets By Mouth Every day Unchanged hydrochlorothiazide-lisinopril (hydrochlorothiazide-lisinopril 25 mg- 20 mg Tab) 1 TabletsBy Mouth Every day Unchanged metformin (metformin 500 [...] you for choosing us for your care. [facility] Medicine Office/Clinic Noteon [id number] Medicine Office/Clinic NoteSaint [facility]'S [facility] Medicine Office/Clinic Note HPI Staff Stevie is [...] day(s), # 6 tab(s), Refills(s) 0, Pharmacy: [facility]/pharmacy #[id number], 188.8, cm, 06/11/24 9:12:00 EST, Height/Length Dosing, 155.4, kg, 06/11/24 9:12:00 EST, Weight Dosing brompheniramine/dextromethorphan/PSE, 5 mL, Oral, QID for cold symptoms, 200 mL, Refill(s) 0, [facility]/pharmacy #[id number], 188.8, cm, 06/11/24 9:12:00 EST, Height/Length Dosing, 155.4, kg, 06/11/24 9:12:00 EST, Weight Dosing methylPREDNISolone, = 1 packet(s), Oral, As Directed, as directed on package labeling, X 6 day(s), # 21 tab(s), Refills(s) 0, Pharmacy: [facility]/pharmacy #[id number], 188.8, cm, 06/11/24 9:12:00 EST, Height/Length Dosing, 155.4, kg, 06/11/24 9:12:00 EST, Weight Dosing 2. Chills (R68.83: Chills (without fever)) having chills on and off Ordered: azithromycin, = 1 packet(s), Oral, As Directed, as directed on package labeling, X 5 day(s), # 6 tab(s), Refills(s) 0, Pharmacy: [facility]/pharmacy #[id number], 188.8, cm, 06/11/24 9:12:00 EST, Height/Length Dosing, 155.4, kg, 06/11/24 9:12:00 EST, Weight Dosing brompheniramine/dextromethorphan/PSE, 5 mL, Oral, QID for cold symptoms, 200 mL, Refill(s) 0, [facility]/pharmacy #[id number], 188.8, cm, 06/11/24 9:12:00 EST, Height/Length Dosing, 155.4, kg, 06/11/24 9:12:00 EST, Weight Dosing methylPREDNISolone, = 1 packet(s), Oral, As Directed, as directed on package labeling, X 6 day(s), # 21 tab(s), Refills(s) 0, [id number] 188.8, cm, 06/11/24 9:12:00 EST, Height/Length Dosing, 155.4, kg, 06/11/24 9:12:00 EST, Weight Dosing 3. Adult BMI 40.0-44.9 kg/sq m (Z68.41: Body mass index [BMI] 40.0-44.9, adult) BMI education given Ordered: azithromycin, = 1 packet(s), Oral, As Directed, as directed on package labeling, X 5 day(s), # 6 tab(s), Refills(s) 0, [id number], 188.8, cm, 06/11/24 9:12:00 EST, Height/Length Dosing, 155.4, kg, 06/11/24 9:12:00 EST, Weight Dosing brompheniramine/dextromethorphan/PSE, 5 mL, Oral, QID for cold symptoms, 200 mL, Refill(s) 0, [facility]/pharmacy #[id number], 188.8, cm, 06/11/24 9:12:00 EST, Height/Length Dosing, 155.4, kg, 06/11/24 9:12:00 EST, Weight Dosing methylPREDNISolone, = 1 packet(s), Oral, As Directed, as directed on package labeling, X 6 day(s), # 21 tab(s), Refills(s) 0, [id number] 188.8, cm, 06/11/24 9:12:00 EST, Height/Length Dosing, 155.4, kg, 06/11/24 9:12:00 EST, Weight Dosing 4. Former smoker (Z87.891: Personal history of nicotine dependence) continue not smoking Ordered: azithromycin, = 1 packet(s), Oral, As Directed, as directed on package labeling, X 5 day(s), # 6 tab(s), Refills(s) 0, [id number], 188.8, cm, 06/11/24 9:12:00 EST, Height/Length Dosing, 155.4, kg, 06/11/24 9:12:00 EST, Weight Dosing brompheniramine/dextromethorphan/PSE, 5 mL, Oral, QID for cold symptoms, 200 mL, Refill(s) 0, [facility]/pharmacy #[id number], 188.8, cm, 06/11/24 9:12:00 EST, Height/Length Dosing, 155.4, kg, 06/11/24 9:12:00 EST, Weight Dosing methylPREDNISolone, = 1 packet(s), Oral, As Directed, as directed on package labeling, X 6 day(s), # 21 tab(s), Refills(s) 0, Pharmacy: [facility]/pharmacy #[id number], 188.8, cm, 06/11/24 9:12:00 EST, Height/Length Dosing, 155.4, kg, 06/11/24 9:12:00 EST, Weight Dosing Orders: meloxicam, See Instructions, TAKE 1 TABLET BY MOUTH EVERY DAY, # 30 tab(s), Refills(s) 0, Pharmacy:[facility] STORE [id number], 188.8, cm, 02/27/24 15:18:00 EDT, Height/Length Dosing, 155.6, kg, 02/27/24 15:18:00 EDT, Weight Dosing Follow-up No qualifying data available Problem List/Past Medical History Ongoing BMI 40.0-44.9, adult BMI 45.0-49.9, adult Broken tooth Chills Cough COVID-19 virus detected Dizziness Fracture of tooth Headache Hypertension Neck pain (more content not included)...[facility] CenterComment on above:Result Comment: Electronically Signed By: Kristie Syed\.br\Date and Time Signed: 06/11/24 10:05 ESTProvider Letteron [phone] Letter Provider Letter June 11, 2024 STEVIE MIKE [address] [place] [address] : 1975 To Whom It May Concern, Date of Illness: From: _06-10-24 To: _ 06-11-24 May Return to Work On:06-17-24 Restrictions: _ Comments: _ Sincerely, Family Medicine [address] [place] [address] NrnvqvCbddigUniversity Hospitals Parma Medical CenterCHEMISTRYOrdered By: SYSTEM SYSTEM on 93-08-7423Xezmxhl [Mass/Vol]4.7 g/dLNormal3.3 - 5.0 gm/dLRemisol Chem Albumin/Globulin [Mass ratio]1.5 {ratio}Normal1.1 - 2.2Remisol ChemALP [Catalytic activity/Vol]49 [iU]/hKxfgqc88 - 98 Int._Unit/LRemisol ChemALT No additional P-5'-P [Catalytic activity/Vol]46 [iU]/dNormal6 - 46 Int._Unit/L Remisol ChemAnion gap [Moles/Vol]12 mmol/LNormal6 - 16 mEq/LRemisol ChemAST [Catalytic activity/Vol]27 [iU]/dNormal5 - 43 Int._Unit/LRemisol ChemBilirubin [Mass/Vol]0.7 mg/dLNormal0.0 - 1.1 mg/dLRemisol ChemCalcium [Mass/Vol]10.0 mg/dL Normal8.9 - 11.1 mg/dLRemisol ChemChloride [Moles/Vol]102 mmol/FBiroxy304 - 111 mmol/LRemisol ChemCO2 [Moles/Vol]28 mmol/UAifgfb31 - 31 mmol/LRemisol Chem Creatinine [Mass/Vol]1.0 mg/dLNormal0.5 - 1.3 mg/dLRemisol OxkboGVH97 mL/min/1.73 q7Njcjdp>=59mL/min/1.73 k3Cflzceo ChemGlobulin (S) [Mass/Vol]3.2 g/dLNormal1.4 - 4.0 gm/dLRemisol ChemGlucose [Mass/Vol]109 mg/mZVnjgbx06 - 199 mg/dLRemisol ChemPotassium [Moles/Vol]4.0 mmol/LNormal3.5 - 5.3 mmol/LRemisol ChemProtein [Mass/Vol]7.9 g/dLHigh6.0 - 7.8 gm/dLRemisol ChemSodium [Moles/Vol] 138 mmol/MGncfow766 - 145 mmol/LRemisol ChemUrea nitrogen [Mass/Vol]19 mg/dL Normal5 - 21 mg/dLRemisol ChemUrea nitrogen/Creatinine [Mass ratio]19 mg/mg Aplcgc96 - 20Remisol ChemHEMATOLOGYOrdered By: SYSTEM SYSTEM on 10-05-2023 Basophils/100 WBC (Bld)0.7 %Normal0.0 - 2.0 %Remisol HemeBasophils/Leukocytes Auto (Bld) [Pure # fraction]0.1 E9/LNormal0.0 - 0.2 E9/LRemisol HemeEosinophils (Bld) [#/Vol]0.1 E9/LNormal0.0 - 0.5 E9/LRemisol HemeEosinophils/100 WBC (Bld) 1.3 %Normal0.0 - 8.0 %Remisol HemeErythrocyte distribution width (RBC) [Ratio] 14.0 %Gasfhx20.9 - 14.2 %Remisol HemeHematocrit (Bld) [Volume fraction]49.2 % High37.7 - 49.0 %Remisol HemeHemoglobin (Bld) [Mass/Vol]16.1 g/wBVrraef43.5 - 17.5 gm/dLRemisol HemeLymphocytes (Bld) [#/Vol]1.3 E9/LNormal1.0 - 4.0 E9/L Remisol HemeLymphocytes/100 WBC (Bld)18.1 %Nmgxyu34.0 - 50.0 %Remisol HemeMCH (RBC) [Entitic mass]30.0 viAdorme65.0 - 34.0 pgRemisol HemeMCHC (RBC) [Mass/Vol] 32.6 g/hWNtfycj79.4 - 36.0 gm/dLRemisol HemeMCV (RBC) [Entitic vol]92.0 fLNormal 80.0 - 100.0 fLRemisol HemeMonocytes (Bld) [#/Vol]0.6 E9/LNormal0.2 - 1.0 E9/L Remisol HemeMonocytes/100 WBC (Bld)8.2 %Normal4.0 - 14.0 %Remisol Heme Neutrophils (Bld) [#/Vol]5.3 E9/LNormal2.0 - 7.5 E9/LRemisol HemeNeutrophils/100 WBC (Bld)71.7 %Tdlmuc03.0 - 75.0 %Remisol PuqoMjaugudw643.0 E9/QFysmxx959.0 - 500.0 E9/LRemisol HemePlatelet mean volume (Bld) [Entitic vol]8.9 fLNormal6.4 - 10.8 fLRemisol HemeRBC (Bld) [#/Vol]5.3 E12/LNormal4.3 - 5.9 E12/LRemisol Heme WBC corrected for nucl RBC Auto (Bld) [#/Vol]7.4 E9/LNormal4.0 - 11.0 E9/L Remisol HemeCHEMISTRYOrdered By: SYSTEM SYSTEM on 54-25-9471Ykqjknb [Mass/Vol] 4.5 g/dLNormal3.3 - 5.0 gm/dLFTMC RemisolAlbumin/Globulin [Mass ratio]1.3 {ratio}Normal1.1 - 2.2[facility] RemisolALP [Catalytic activity/Vol]48 [iU]/kKymxzm04 - 98 Int._Unit/LFTMC RemisolALT No additional P-5'-P [Catalytic activity/Vol]57 [iU]/dHigh6 - 46 Int._Unit/LFTMC RemisolAnion gap [Moles/Vol]13 mmol/LNormal6 - 16 mEq/LFTMC RemisolAST [Catalytic activity/Vol]41 [iU]/dNormal5 - 43 Int._Unit/LFTMC RemisolBilirubin [Mass/Vol]0.5 mg/dLNormal0.0 - 1.1 mg/dLFTMC RemisolCalcium [Mass/Vol]9.9 mg/dLNormal8.9 - 11.1 mg/dLFTMC RemisolChloride [Moles/Vol]104 mmol/CRplrcr542 - 111 mmol/LFTMC RemisolCholesterol [Mass/Vol]240 mg/rPKhvj149 - 200 mg/dLFTMC RemisolCholesterol in HDL [Mass/Vol]59 mg/dL Invalid Interpretation CodeFTMC RemisolCholesterol in LDL [Mass/Vol]160 mg/dL High<=129mg/dLFTMC RemisolCholesterol in VLDL [Mass/Vol]15 mg/dLNormal7 - 40 mg/dLFTMC RemisolCO2 [Moles/Vol]27 mmol/ZVtpmva77 - 31 mmol/LFTMC Remisol Creatinine [Mass/Vol]1.1 mg/dLNormal0.5 - 1.3 mg/dLFTMC RemisolGFR/1.73 sq M.predicted among non-blacks MDRD (S/P/Bld) [Vol rate/Area]84 mL/min/1.73 m2 Normal>=59mL/min/1.73 m2FT Chem SGlobulin (S) [Mass/Vol]3.5 g/dLNormal1.4 - 4.0 gm/dLFTMC RemisolGlucose [Mass/Vol]99 mg/nXHnazss64 - 199 mg/dLFTMC Remisol Potassium [Moles/Vol]3.8 mmol/LNormal3.5 - 5.3 mmol/LFTMC RemisolProstate specific Ag [Mass/Vol]0.5 ng/mLNormal0.1 - 3.5 ng/mLFTMC RemisolProtein [Mass/Vol]8.0 g/dLHigh6.0 - 7.8 gm/dLFT RemisolSodium [Moles/Vol]140 mmol/L Ygafcw273 - 145 mmol/LFTMC RemisolTriglyceride [Mass/Vol]77 mg/dLNormal <=149mg/dLFT RemisolTSH Qn1.41 m[IU]/LNormal0.34 - 5.60 mcIU/mLFT Remisol Urea nitrogen [Mass/Vol]22 mg/dLHigh5 - 21 mg/dLFT RemisolUrea nitrogen/Creatinine [Mass ratio]20 mg/twUdyevn48 - 20FTMC RemisolHEMATOLOGY Ordered By: SYSTEM SYSTEM on 72-80-1047Hudkdfnct/100 WBC (Bld)1.0 %Normal0.0 - 2.0 %[facility] HemeAutoSSBasophils/Leukocytes Auto (Bld) [Pure # fraction]0.1 E9/L Normal0.0 - 0.2 E9/LFTMC HemeAutoSSEosinophils/100 WBC (Bld)1.1 %Normal0.0 - 8.0 %[facility] HemeAutoSSEosinophils/Leukocytes Auto (Bld) [Pure # fraction]0.1 E9/L Normal0.0 - 0.5 E9/LFTMC HemeAutoSSLymphocytes/100 WBC (Bld)24.7 %Btzmkr42.0 - 50.0 %[facility] HemeAutoSSLymphocytes/Leukocytes Auto (Bld) [Pure # fraction]1.8 E9/L Normal1.0 - 4.0 E9/LFTMC HemeAutoSSMonocytes/100 WBC (Bld)7.8 %Normal4.0 - 14.0 %[facility] HemeAutoSSMonocytes/Leukocytes Auto (Bld) [Pure # fraction]0.6 E9/LNormal 0.2 - 1.0 E9/LFTMC HemeAutoSSNeutrophils/100 WBC (Bld)65.4 %Yjljyz34.0 - 75.0 % [facility] HemeAutoSSNeutrophils/Leukocytes Auto (Bld) [Pure # fraction]4.9 E9/LNormal 2.0 - 7.5 E9/LFTMC HemeAutoSSHEMATOLOGYOrdered By: Kayy Workman on 04-05-2023 Erythrocyte distribution width (RBC) [Ratio]13.9 %Zicszc89.9 - 14.2 %[facility] HemeAutoSSHematocrit (Bld) [Volume fraction]45.1 %Azzsbp05.7 - 49.0 %[facility] HemeAutoSSHemoglobin (Bld) [Mass/Vol]15.3 g/bWJpqgcj27.5 - 17.5 gm/dLFTMC HemeAutoSSMCH (RBC) [Entitic mass]30.7 zvKvxlyu17.0 - 34.0 pgFTMC HemeAutoSSMCHC (RBC) [Mass/Vol]34.0 g/fWNomznw32.4 - 36.0 gm/dLFTMC HemeAutoSSMCV (RBC) [Entitic vol]90.2 tQWdfatb31.0 - 100.0 fLFTMC HemeAutoSSPlatelet mean volume (Bld) [Entitic vol]8.9 fLNormal6.4 - 10.8 fLFTMC HemeAutoSSPlatelets (Bld) [#/Vol]278.0 E9/RJpdpsk610.0 - 500.0 E9/[facility] HemeAutoSSRBC (Bld) [#/Vol]5.0 E12/LNormal4.3 - 5.9 E12/[facility] HemeAutoSSWBC corrected for nucl RBC Auto (Bld) [#/Vol]7.4 E9/LNormal4.0 - 11.0 /[facility] HemeAutoSSPROF CHEM 8 (BAS METB)on 97-80-0705Sjmhp gap [Moles/Vol]7.2 mmol/LNormalThe Protestant HospitalComment on above:Performed By: #### BMP #### [facility] [address] [place] [address] Dr. Marky RitterCalcium [Mass/Vol]8.8 mg/dLNormal8.5-10.1[facility] Comment on above:Performed By: #### BMP #### [facility] [address] [place] [address] Dr. Marky RitterChloride [Moles/Vol]101 mmol/RPdiadz21-052MvsScci Hospital [facility] Comment on above:Performed By: #### BMP #### [facility] [address] [place] [address] Dr. Marky RitterCO2 [Moles/Vol]34.3 mmol/LCritically high21.0-32.0[facility] LimaComment on above:Performed By: #### BMP #### [facility] [address] [address] [address] Marky RitterCreatinine [Mass/Vol]0.99 mg/dLNormal0.70-1.30The Protestant HospitalComment on above:Performed By: #### BMP #### [facility] [address] [place] [address] Dr. Marky HoranGFR-AF VATICAN CITIZEN>60Normal>=60The Protestant HospitalComment on above:Performed By: #### BMP #### [facility] [address] [place] [address] Dr. Marky HoranGFR-NON AF [place] CITIZEN>60Normal>=60The Protestant HospitalComment on above:Performed By: #### BMP #### [facility] [address] [address] [address] Marky RitterGlucose [Mass/Vol]122 mg/dLCritically fivm14-540Ytb Protestant HospitalComment on above:Performed By: #### BMP #### [facility] [address] [address] [address] Marky RitterPotassium [Moles/Vol]4.5 mmol/LNormal3.5-5.1[facility] Comment on above:Performed By: #### BMP #### [facility] [address] [address] [address] Marky RitterSodium [Moles/Vol]138 mmol/MMqnnse925-109Ptq [facility] Comment on above:Performed By: #### BMP #### [facility] [address] [address] [address] Marky RitterUrea nitrogen [Mass/Vol]14.0 mg/dLNormal7.0-18.0The Protestant HospitalComment on above:Performed By: #### BMP #### [facility] [address] [place] [address] Dr. Marky Rodriguez nitrogen/Creatinine [Mass ratio]14.1 mg/mgNormalThe Protestant HospitalComment on above:Performed By: #### BMP #### [facility] [address] [place] [address] Dr. Marky Nuno Visit (Cardiology)on 33-47-7289Kjfpaa-up visit Diagnoses/Problems Assessed Benign essential hypertension (401.1) (I10) Morbid obesity with BMI of 40.0-44.9, adult (278.01,V85.41) (E66.01,Z68.41) Orders Benign essential hypertension Renew: amLODIPine Besylate 2.5 MG Oral Tablet; TAKE 1 TABLET DAILY DIRECTED Basic Metabolic Panel; Status:Active; Requested for:02Jun2022; Renew: Lisinopril-hydroCHLOROthiazide 20-25 MG Oral Tablet; TAKE 1 TABLET [...] making process incorporating patients unique circumstances, the followingtreatment plan will be initiated: 1. Prescription drug [...] of renal function due to ANAM inhibitor/diureticuse. Otherwise we review prior cardiovascular evaluation including [...] 2.5 MG Oral TabletTake 1 tablet daily Lisinopril-hydroCHLOROthiazide 20-25 MG Oral TabletTAKE 1 TABLET BY [...] Recorded: 02Jun2022 02:03PM Heart Rate76, L Radial Btiiinal673, LUE, Sitting Gyslyetsa42, LUE, Sitting Height6 ft 4 in Nhwpwj357 lb BMI Wuhixxniid43.97 kg/m2 BSA Calculated2.82 Tobacco Useb) No PHQ-2 #1. Over the last 2 weeks have you felt down, depressed or hopeless? (If yes, answer PHQ-9 below)No PHQ-2 #2. Over the last 2 weeks have you felt little interest or pleasure in doing things? (If yes,answer PHQ-9 below)No Physical Exam Constitutional: alert and [...] place and time and (more content not included)...NormalUH TouchworksTobacco Screening.on 67-25-4859Lszwj depression screening assessmentShriners Children's [facility] [address] DO Work Phone: Tobacco use status CPHSb) NoMP-[facility] HeartM[facility] 600 DO Work Phone: Activated partial thromboplastin time (aPTT) in platelet poor plasma by coagulation aon 30-99-1370sYJF Coag (PPP) [Time]31.2 s 25.1-36.5FAult[facility] CtrAutomated basophil %on 09-22-2020 Basophils/100 WBC (Bld)0.7 %[facility] CtrAutomated basophil counton 33-97-8184Tmafnzumd (Bld) [#/Vol]0.0 10*3/uL0.0-0.2FAultman Alliance Community Hospital CtrAutomated blood lymphocyte count (number/volume)on 09-22-2020 Lymphocytes (Bld) [#/Vol]1.1 10*3/uL1.00-4.8[facility] Automated blood lymphocyte count as percentage of total leukocyteson 09-22-2020 Lymphocytes/100 WBC (Bld)17.6 %[facility] CtrAutomated blood monocyte counton 97-24-5116Fbcebkrib (Bld) [#/Vol]0.4 10*3/uL0.0-0.8[facility] CtrAutomated blood platelet count (count/volume)on 09-22-2020 Platelets (Bld) [#/Vol]241 10*3/lK345-726KvapldllwSheltering Arms Hospital CtrAutomated blood platelet mean volume measurementon 79-65-8848Kavceici mean volume (Bld) [Entitic vol]9.4 fL6.6-10.1FAultman Alliance [facility] Hospital CtrAutomated eosinophil % on 53-27-2975Munsqxfdtbf/100 WBC (Bld)1.0 %[facility] Automated eosinophil counton 47-80-5728Pufmmwymwlq (Bld) [#/Vol]0.1 10*3/uL 0.0-0.45[facility] CtrAutomated erythrocyte distribution width ratioon 58-31-7743Ycgifnnacuz distribution width (RBC) [Ratio]13.1 %12.0-14.8 [facility] CtrAutomated erythrocyte mean corpuscular hemoglobin (mass per erythrocyte)on 15-25-7071IDH (RBC) [Entitic mass]30.2 pg27.5-35.2 [facility] CtrAutomated erythrocyte mean corpuscular hemoglobin concentration measurement (mass/volon 89-27-4608GYMS (RBC) [Mass/Vol]33.3 g/dL 32.5-35.6FAultman [facility] CtrAutomated erythrocyte mean corpuscular volumeon 75-14-3541ZFM (RBC) [Entitic vol]90.7 fL83.5-101[facility] CtrAutomated monocyte %on 91-84-1528Shlffwsez/100 WBC (Bld)6.5 % [facility] CtrAutomated neutrophil %on 05-61-0144Wkpdjwpdujx/100 WBC (Bld)74.2 %[facility] CtrBlood Urea Nitrogenon 09-22-2020 Urea nitrogen [Mass/Vol]13 mg/dLNormalHolmes County Joel [facility]rene [facility] Comment on above:Performed By: #### LIPID, PP, CREAT, BUN, CBC, LYTES #### [facility] [address] [id number] USABlood erythrocytes automated count (number/volume)on 02-08-2948NEQ (Bld) [#/Vol]4.80 10*6/uL3.90-5.60[facility] Blood hemoglobin measurement (mass/volume)on 94-71-4454Kdtvmcdpaw (Bld) [Mass/Vol]14.5 g/dL13.0-17.0[facility] CtrBlood leukocytes automated count (number/volume)on 90-79-5892FFX (Bld) [#/Vol]6.1 10*3/uL4.5-11.0 [facility] CtrBlood neutrophil count by automated method (number/volume)on 06-77-6674Nivpnghboku (Bld) [#/Vol]4.5 10*3/uL1.8-7.7FAultman [facility] Hospital CtrCholesterol [Mass/volume] in Serum or Plasmaon 09-22-2020 Cholesterol [Mass/Vol]185 mg/xS136-755HbjnwdkfpSheltering Arms Hospital CtrComment on above:Chol less than 200 mg/dl low riskChol 201-239 mg/dl borderline riskChol 240 mg/dl and greater high riskCholesterol in LDL [Mass/volume] in Serum or Plasma by calculationon 92-50-7260Izotfztakze in LDL [Mass/Vol]126 mg/dL0-100 [facility] CtrComment on above:LDL ATP III CLASSIFICATIONLDL less than 100 mg/dL OptimalLDL 100-129 mg/dL Near or above vugnlloHOD687-046 mg/dL Borderline highLDL 160-189 mg/dL HighLDL greater than 189 mg/dL Very high Cholesterol in VLDL [Mass/volume] in Serum or Plasma by calculationon 1 Cholesterol in VLDL [Mass/Vol]15 mg/dLSheltering Arms Hospital CtrCoagulation Profileon 59-57-1453oVFM Coag (Bld) [Time]31.2 tRfnxgv44.1-36.5FSamaritan HospitalComment on above:Result Comment: PERFORMED BY: [place] [address] PATHOLOGIST [employer] CASS COHEN M.D.Performed By: #### LIPID, PP, CREAT, BUN, CBC, LYTES #### [place] [address] USAINR Coag (PPP) [Relative time]1.1 {INR}NormalHolmes County Joel Pomerene Memorial HospitalComment on above:Result Comment: INR Therapeutic Range A) Pre- and [...] patients with mechanical heart valves: 3 - 4.5Performed By: #### LIPID, PP, CREAT, BUN, CBC, LYTES #### [facility] [address] [place] [address] USAPT Coag (PPP) [Time]12.2 sNormal9.0-12.9[facility] HospitalComment on above:Performed By: #### LIPID, PP, CREAT, BUN, CBC, LYTES #### [place] [address] USAComplete Blood Count Auto Diffon 57-25-2556Xvrvvczuq (Bld) [#/Vol]0.0 10*3/uLNormal0.0-0.2FSamaritan HospitalComment on above:Result Comment: PERFORMED BY: [place] [address] PATHOLOGIST [employer] MECHANIC CASS COHEN M.D.Performed By: #### LIPID, PP, CREAT, BUN, CBC, LYTES #### [place] [address] USABasophils/100 WBC (Bld)0.7 %Normal.[facility] HospitalComment on above:Performed By: #### LIPID, PP, CREAT, BUN, CBC, LYTES #### [place] [address] USAEosinophils (Bld) [#/Vol]0.1 10*3/uLNormal0.0-0.45 [facility] HospitalComment on above:Performed By: #### LIPID, PP, CREAT, BUN, CBC, LYTES #### [place] [address] USAEosinophils/100 WBC (Bld)1.0 %Normal.[facility] HospitalComment on above:Performed By: #### LIPID, PP, CREAT, BUN, CBC, LYTES #### [place] [address] USAErythrocyte distribution width (RBC) [Ratio]13.1 %Normal 12.0-14.8[facility] HospitalComment on above:Performed By: #### LIPID, PP, CREAT, BUN, CBC, LYTES #### [place] [address] USAHematocrit (Bld) [Volume fraction]43.6 %Wlhdtl26.8-50.0 [facility] HospitalComment on above:Performed By: #### LIPID, PP, CREAT, BUN, CBC, LYTES #### [place] [address] USAHemoglobin (Bld) [Mass/Vol]14.5 g/eUDmndri11.0-17.0 [facility] HospitalComment on above:Performed By: #### LIPID, PP, CREAT, BUN, CBC, LYTES #### [place] [address] USALymphocytes (Bld) [#/Vol]1.1 10*3/uLNormal1.00-4.8 [facility] HospitalComment on above:Performed By: #### LIPID, PP, CREAT, BUN, CBC, LYTES #### [place] [address] USALymphocytes/100 WBC (Bld)17.6 %Normal.[facility] HospitalComment on above:Performed By: #### LIPID, PP, CREAT, BUN, CBC, LYTES #### [address]H (RBC) [Entitic mass]30.2 ziUgcgfc54.5-35.2FSamaritan HospitalComment on above:Performed By: #### LIPID, PP, CREAT, BUN, CBC, LYTES #### [address] (RBC) [Entitic vol]90.7 pMSoarem50.5-101Hol[facility] HospitalComment on above:Performed By: #### LIPID, PP, CREAT, BUN, CBC, LYTES #### [place] [address] USAMean Corpuscular HGB Conc33.3 g/lVHgcxkw06.5-35.6FSamaritan HospitalComment on above:Performed By: #### LIPID, PP, CREAT, BUN, CBC, LYTES #### [place] [address] USAMonocytes (Bld) [#/Vol]0.4 10*3/uLNormal0.0-0.8[facility] HospitalComment on above:Performed By: #### LIPID, PP, CREAT, BUN, CBC, LYTES #### [place] [address] USAMonocytes/100 WBC (Bld)6.5 %Normal.[facility] HospitalComment on above:Performed By: #### LIPID, PP, CREAT, BUN, CBC, LYTES #### [place] [address] USANeutrophils (Bld) [#/Vol]4.5 10*3/uLNormal1.8-7.7FSamaritan HospitalComment on above:Performed By: #### LIPID, PP, CREAT, BUN, CBC, LYTES #### [place] [address] USANeutrophils/100 WBC (Bld)74.2 %Normal.[facility]ome[facility] HospitalComment on above:Performed By: #### LIPID, PP, CREAT, BUN, CBC, LYTES #### [place] [address] USANucleated RBC/100 WBC (Bld) [Ratio]0.0 %Normal0-0.5 [facility] HospitalCommclaren lapeer region on above:Performed By: #### LIPID, PP, CREAT, BUN, CBC, LYTES #### [place] [address] USAPlatelet mean volume (Bld) [Entitic vol]9.4 fLNormal 6.6-10.1FSamaritan HospitalComment on above:Performed By: #### LIPID, PP, CREAT, BUN, CBC, LYTES #### [place] [address] USAPlatelets (Bld) [#/Vol]241 10*3/yHOdziez127-557FrqualqsmHolmes County Joel Pomerene Memorial HospitalComment on above:Performed By: #### LIPID, PP, CREAT, BUN, CBC, LYTES #### [place] [address] USARBC (Bld) [#/Vol]4.80 10*6/uLNormal3.90-5.60[facility] HospitalComment on above:Performed By: #### LIPID, PP, CREAT, BUN, CBC, LYTES #### [facility] [address] [place] [address] USAWBC (Bld) [#/Vol]6.1 10*3/uLNormal4.5-11.0[facility] HospitalComment on above:Performed By: #### LIPID, PP, CREAT, BUN, CBC, LYTES #### [facility] [address] [place] [address] USACreatinineon [id number] [Mass/Vol]0.97 mg/dL Normal0.64-1.27[facility] HospitalComment on above:Performed By: #### LIPID, PP, CREAT, BUN, CBC, LYTES #### [place] [address] USAEstimated GFR ( Julee> 60NoOhio Valley HospitalComment on above:Result Comment: GFR estimated reference range: According to KDOQI guidelines, <60 ml/min/1.73m2 is sufficient to diagnose a patient with chronic kidney disease.Performed By: #### LIPID, PP, CREAT, BUN, CBC, LYTES #### [facility] [address] [place] [address] USAEstimated GFR (Non- Am> 60NormUK HealthcareComment on above:Performed By: #### LIPID, PP, CREAT, BUN, CBC, LYTES #### [facility] [address] [place] [address] USAECG 12 lead ECGon [id number] 12 lead ECGSELECT MEDICAL [facility] [place] [address] [place] [address] Electrocardiograph Report Signed Patient: Stevie Mike MR#: [id number] : 1975 Acct:[id number] Age/Sex: 44 / M ADM Date: 09/22/20 Loc: PS Room: Type: [facility] Attending Dr: Mumtaz Godinez MD Ordering Provider: Mumtaz Godinez MD Date of Service: 09/22/20 ECG/ECG 12 [...] significant change was found Confirmed by BRIANA KAY DO ([id number]) on 09/22/2020 12:13:26 PM Referred By: GEMMA Electronically Signed By:BRIANA KAY DO Transcribed By: LITZY Dictated By: Briana Kay DO 09/22/20 0939 Signed By: 09/22/20 1213NoOhio Valley HospitalElectrolyteson 72-50-5013Zljhvlzh [Moles/Vol]99 mmol/QZffkcm46-379FnbvjqfaqHolmes County Joel Pomerene Memorial HospitalComment on above:Performed By: #### LIPID, PP, CREAT, BUN, CBC, LYTES #### [facility] [address] [place] [address] USACO2 [Moles/Vol]28.8 mmol/KQaxzpt31.0-30.0Hol[facility]ome[facility] Memorial HospitalComment on above:Performed By: #### LIPID, PP, CREAT, BUN, CBC, LYTES #### [facility] [address] [place] [address] USAPotassium [Moles/Vol]4.3 mmol/LNormal3.5-5.1FSamaritan HospitalComment on above:Performed By: #### LIPID, PP, CREAT, BUN, CBC, LYTES #### [facility] [address] [place] [address] USASodium [Moles/Vol]138 mmol/IJernbv034-410WeoxppcfgHolmes County Joel Pomerene Memorial HospitalComment on above:Performed By: #### LIPID, PP, CREAT, BUN, CBC, LYTES #### [facility] [address] [place] [address] USAEstimated glomerular filtration rate (GFR) non- Americanon 86-18-2114FUX/1.73 sq M predicted among non-blacks MDRD (S/P/Bld) [Vol rate/Area]mL/min/{1.73_m2}[facility] CtrHematocrit [Volume Fraction] of Blood by Automated counton 81-40-5583Cllzukvxyl (Bld) [Volume fraction]43.6 %38.8-50.0[facility] CtrHematologyon 50-87-6350QC Coag (PPP) [Time]12.2 s9.0-12.9[facility] CtrLipid Panelon 20-64-2402Vcbbgtrvfbe [Mass/Vol]185 mg/xQRshctw454-740JdozsbnonHolmes County Joel Pomerene Memorial HospitalComment on above:Result Comment: Chol less than 200 mg/dl low risk Chol 201-239 mg/dl borderline risk Chol 240 mg/dl and greater high riskPerformed By: #### LIPID, PP, CREAT, BUN, CBC, LYTES #### [address] [address] USACholesterol in HDL [Mass/Vol]44 mg/mQYyuohu25-52QawlldsnqHolmes County Joel Pomerene Memorial HospitalComment on above:Result Comment: HDL CHOL ATP-III CLASSIFICATION Cardiovascular Risk HDL > or equal to 60 mg/dL LOW HDL < 40 mg/dL HIGHPerformed By: #### LIPID, PP, CREAT, BUN, CBC, LYTES #### [facility] [address] [place] [id number] USACholesterol.total/Cholesterol in HDL [Mass ratio]4.2 {ratio}Normal<5.0Hol[facility]ome[facility] Memorial HospitalComment on above:Result Comment: PERFORMED BY: [place] [address] PATHOLOGIST DIESEL TRACTOR ENGINE MECHANIC CASS COHEN M.D.Performed By: #### LIPID, PP, CREAT, BUN, CBC, LYTES #### [place] [address] USALDL Cholesterol,Snxyrnrngu913 mg/dLHigh0-100Hol[facility] HospitalComment on above:Result Comment: LDL ATP III CLASSIFICATION LDL less than 100 mg/dL Optimal LDL 100-129 mg/dL Near or above optimal LDL 130-159 mg/dL Borderline high LDL 160-189 mg/dL High LDL greater than 189 mg/dL Very highPerformed By: #### LIPID, PP, CREAT, BUN, CBC, LYTES #### [facility] [address] [place] [address] USATriglyceride w/Cbzcrt87 mg/eNHwpoud37-218LavpgdaorHolmes County Joel Pomerene Memorial HospitalComment on above:Result Comment: TRIG ATP III CLASSIFICATION TRIG less than 150 mg/dL Normal TRIG 150-199 mg/dL Borderline high TRIG 200-500 mg/dL High TRIG greater than 500 mg/dL Very high Standard traceable to the Center for Disease Conrtrol and Prevention (CDC) test method.Performed By: #### LIPID, PP, CREAT, BUN, CBC, LYTES #### [facility] [address] [place] [id number] USAVLDL FXDXVDEUIKN38 mg/dLNoOhio Valley HospitalComment on above:Performed By: #### LIPID, PP, CREAT, BUN, CBC, LYTES #### [facility] [address] [place] [id number] USAOtheron 58-97-4260QBR/1.73 sq M.predicted MDRD (S/P/Bld) [Vol rate/Area]mL/min/{1.73_m2}[facility] CtrComment on above: GFR estimated reference range: According to KDOQI guidelines, <60 ml/min/1.73m2 is sufficient todiagnose a patient with chronic kidney disease.Nucleated RBC/100 WBC (Bld) [Ratio]0.0 %0-0.5FAultman [facility] CtrPharmacy Creatinine Clearance (ChemN/AFAultman Alliance Community Hospital CtrPlatelet poor plasma international normalized ratio (INR) by coagulation assay (relaton 14-43-1333MHG Coag (PPP) [Relative time]1.1 {INR}[facility] CtrComment on above:INR Therapeutic Range A) Pre- and Peroperative OAT started two weeks before surgery. NOT HIP SURGERY: 1.5 - 2.5 HIP SURGERY: 2 - 3B) Primary and secondary prevention of venous THROMBOSIS: 2 - 3C) Active venous thrombosis, pulmonary embolismand prevention of recurrent venous thrombosis: 2 - 3D) Preve ntion of arterial thromboembolismincluding patients with mechanical heart valves: 3 - 4.5Serum or plasma chloride measurement (moles/volume)on 09-22-2020 Chloride [Moles/Vol]99 mmol/A16-642VvsnuhloiSheltering Arms Hospital CtrSerum or plasma creatinine measurement with calculation of estimated glomerular filtron 17-17-6652Lkjluctzvd [Mass/Vol]0.97 mg/dL0.64-1.27[facility] Serum or plasma high density lipoprotein (HDL) cholesterol measurementon 19-54-6525Jrragxughvh in HDL [Mass/Vol]44 mg/fO61-05NitkvqpuvSheltering Arms Hospital CtrComment on above:HDL CHOL ATP-III CLASSIFICATION Cardiovascular RiskHDL > or equal to 60 mg/dL LOWHDL < 40 mg/dL HIGHSerum or plasma potassium measurement (moles/volume)on 94-21-4472Idyovqtii [Moles/Vol]4.3 mmol/L3.5-5.1FAultman Alliance Community Hospital CtrSerum or plasma sodium measurement (moles/volume)on 01-51-3357Ghdenv [Moles/Vol]138 mmol/R730-520EljyilboiSheltering Arms Hospital CtrSerum or plasma total carbon dioxide measurement (moles/volume)on 75-02-7678QM7 [Moles/Vol]28.8 mmol/L22.0-30.0[facility] CtrSerum or plasma total cholesterol/high density lipoprotein (HDL) cholesterol mass gerry 70-70-6781Zpxyleyubfa.total/Cholesterol in HDL [Mass ratio]4.2 {ratio}[facility] CtrSerum or plasma urea nitrogen measurement (mass/volume)on 83-30-1240Aakd nitrogen [Mass/Vol]13 mg/dL04-22[facility] Triglyceride [Mass/volume] in Serum or Plasmaon 23-27-3563Akmvghdbbxvx [Mass/Vol]77 mg/oE71-137QphmedyywSheltering Arms Hospital CtrComment on above:TRIG ATP III CLASSIFICATIONTRIG less than 150 mg/dL NormalTRIG 150-199 mg/dL Borderline highTRIG 200-500 mg/dL High TRIG greater than 500 mg/dL Very highStandard traceable to the Center for Disease Conrtrol and Prevention (CDC) test method. Vital Signs Date TimeVital SignValuePerforming NzaiagmkhGytwnfet48-15-0130 08:28-0400Body adphqe180 cmMarc Dolce DPM FACFAS Work Phone: [phone] [place], [place] [address]2009-08-2025 08:28-0400Body mass index (BMI) [Ratio]42.6 kg/m2Marc Dolce DPM FACFAS Work Phone: 1([phone])[address] [place], [place] [address]2009-08-2025 08:28-0400Body akuaai192.76 kgMarc Dolce DPM FACFAS Work Phone: 1([phone])[address] [place] [address]-08-2025 08:28-0400Diastolic blood kmluwnhr07 mm[Hg]Gustavo Hollandce DPM FACFAS Work Phone: [phone])[address] [place], [place] [address]2009-08-2025 08:28-0400Heart rate81 /min Gustavo Dolce DPM FACFAS Work Phone: 1(419)[address] [place], [place] [address]2009-08-2025 08:28-0400Systolic blood aslaclmd608 mm[Hg]Gustavo Hollandce DPM FACFAS Work Phone: 1(419)[address] [place], [place] [address]2008-18-2025 08:02-0400Body tdvapd090 cm Gustavo Hollandce DPM FACFAS Work Phone: 1(419)[address] [place], [place] [address]2008-18-2025 08:02-0400Body mass index (BMI) [Ratio]42.6 kg/m2Marc Dolce DPM FACFAS Work Phone: [phone])[address] [place], [place] [address]2008-18-2025 08:02-0400Body uzbybp177.76 kgMarc Dolce DPM FACFAS Work Phone: 1(419)[address] [place], [place] [address]2008-18-2025 08:02-0400Diastolic blood psbaoxoe34 mm[Hg]Gustavo Hollandce DPM FACFAS Work Phone: 1(109)[address] [place], [place] [address]2008-18-2025 08:02-0400Heart rate82 /min Gustavo Crane DPM FACFAS Work Phone: 1(970)[address] [place], [place] [address]2008-18-2025 08:02-0400Systolic blood ibcvglmo067 mm[Hg]Gustavo Crane DPM FACFAS Work Phone: 1(419)[address] [place], [place] [address]2008-01-2025 08:04-0400Body pparfn590 cm Gustavo Crane DPM FACFAS Work Phone: 1(419)[address] [place], [place] [address]2008-01-2025 08:04-0400Body mass index (BMI) [Ratio]42.6 kg/m2Marc Dolsindy DPM FACFAS Work Phone: 1(419)[address] [place], [place] [address]2008-01-2025 08:04-0400Body ymqoqc810.76 kgMarc Dolsindy DPM FACFAS Work Phone: 1(177)[address] [place], [place] [address]2008-01-2025 08:04-0400Diastolic blood suqaenlp36 mm[Hg]Gustavo Crane DPM FACFAS Work Phone: 1(783)[address] [place], [place] [address]2008-01-2025 08:04-0400Heart rate84 /min Gustavo Crane DPM FACFAS Work Phone: 1(829)[address] [place], [place] [address]2008-01-2025 08:04-0400Systolic blood mqismfwt771 mm[Hg]Gustavo Crane DPM FACFAS Work Phone: 1(624)[address] [place], [place] [address]2009-26-2024 16:33-0400Diastolic blood idyydbef23 mm[Hg]Manan Medrano MD Work Phone: 1(893)757-[address] [place], [place] [address]67909-26-2024 16:33-0400 Systolic blood xjwwaohw224 mm[Hg]Manan Medrano MD Work Phone: 1(958)[address]09-26-2024 16:07-0400 Body rvwkxa912 cmManan Medrano MD Work Phone: 1(937)[address]09-26-2024 16:07-0400 Body mass index (BMI) [Ratio]39.93 kg/i1PyggrjsManan Medrano MD Work Phone: 1(440)[address]09-26-2024 16:07-0400 Body hsssio142.78 kgManan Medrano MD Work Phone: [phone])[address] [place], [place] 286[address]09-26-2024 16:07-0400 Heart rate72 /Mechelle Medrano MD Work Phone: 1(440)[address]04-26-2024 08:38-0400 Diastolic blood zbzavnpk77 mm[Hg]Manan Medrano MD Work Phone: 1(440)[address]04-26-2024 08:38-0400 Systolic blood qjwculkn782 mm[Hg]Manan Medrano MD Work Phone: 1(440)[address]04-26-2024 08:33-0400 Body cmManan Medrano MD Work Phone: 1(440)[address]04-26-2024 08:33-0400 Body mass index (BMI) [Ratio]43.09 kg/j3HandprcManan Medrano MD Work Phone: 1(440)[address]04-26-2024 08:33-0400 Body qmpqoa591.57 Ger Medrano MD Work Phone: 1(440)[address]04-26-2024 08:33-0400 Heart rate80 /Mechelle Medrano MD Work Phone: 1(440)[address]03-27-2024 15:17-0400 Body oelntx113 cmManan Medrano MD Work Phone: [phone]03-27-2024 15:17-0400 Body mass index (BMI) [Ratio]42.24 kg/m0NptyvynManan Medrano MD Work Phone: 1(440)[address]03-27-2024 15:17-0400 Body drtxwi405.4 kgManan Medrano MD Work Phone: [facility]03-27-2024 15:17-0400 Diastolic blood bffuidyo84 mm[Hg]Manan Medrano MD Work Phone: [facility]03-27-2024 15:17-0400 Heart rate88 /minManan Medrano MD Work Phone: [facility]03-27-2024 15:17-0400 Systolic blood dibgsimj038 mm[Hg]Manan Medrano MD Work Phone: [facility]11-03-2022 14:03-0400 Body vzrlla541.04 cmKim E Salazar Work Phone: 1(240) [phone]-QprljFair[facility]-[place] 600 DO Work Phone: [phone]([phone] 14:03-0400Body mass index (BMI) [Ratio] 42.97 kg/m2Gustabohernandez Craftight Work Phone: 1(664) [phone]-FmoyvNorthwest Medical Centerwalk 600 DO Work Phone: 1(724) 470-940911-03-2022 14:03-0400Body surface area Derived from formula2.82 m2Kihernandez Salazar Work Phone: 1(213) [phone]-DjzcdNorthwest Medical Centerwalk 600 DO Work Phone: 1(954)[phone] 14:03-0400Body elfnmw403.12 kgKihernandez E Salazar Work Phone: 1(171) [phone]-Hgkxp [facility] 600 DO Work Phone: 1(782)[phone] 14:03-0400Diastolic blood vkswejxp20 mm[Hg] Mellissa Ramirez Salazar Work Phone: 1(549) [phone]-Dubtp [facility] [address] DO Work Phone: 1(729)[phone] 14:03-0400Heart rate76 /minKim E Salazar Work Phone: 1(128) [phone]-BdkvrFairmont Hospital and Clinic-[facility] 600 DO Work Phone: 1([phone] 14:03-0400Systolic blood zgzjirsa443 mm[Hg] Mellissa Salazar Work Phone: [phone]-Zjzrc [facility] 600 DO Work Phone: Encounters Encounter DateEncounter TypeCare ProviderFacilityStart: 06-10-2025 End: 43-17-1240pkyplhrixbEkdv L SchwabFacility:FT BellevueStart: 05-20-2025 End: 07-64-8445gmsnrxtyyxWari L SchwabFacility:[facility] BellevueStart: 04-24-2025 End: 21-51-6793goqlakwbjnNcfp L SchwabFacility:[facility] BellevueStart: 04-07-2025 End: 00-18-1415Vmfcni flowsheetMarc D Dolce DPM FACFAS Work Phone: noms [facility] HospitalwnStart: 04-07-2025 End: 76-45-6085Dlolur flowsheetMarc D Dolce DPM FACFAS Work Phone: noms [facility] HospitalnStart: 04-07-2025 End: 86-72-6459Opouxy outpatient visit 15 minutesMarc D Dolce DPM FACFAS Work Phone: noms NMA PODComment on above:Neoplasm of uncertain behavior of skin (Primary Dx); Plantar fasciitis; Calcaneal spur, left foot; Pain in left foot; Verruca plantaris; Right foot pain; Acquired plantar porokeratosisStart: 04-07-2025 End: 56-66-3988wsrrssuvchCGUA D DOLCENot AvailableStart: 04-02-2025 End: 15-24-1847ytnkmkptwyKAO ITZ CAMPOSANNFacility:[facility] BellevueStart: 03-17-2025 End: 50-41-2519Fdlmln flowsheetMarc D Dolce DPM FACFAS Work Phone: noms [facility] HospitalwnStart: 03-17-2025 End: 89-05-8480Ktauxb flowsheetMarc D Dolce DPM FACFAS Work Phone: noms [facility] HospitalnStart: 03-17-2025 End: 28-85-1705Hrwhdv outpatient visit 15 minutesMarc D Dolce DPM FACFAS Work Phone: NOMS NMA PODComment on above:Calcaneal spur, left foot (Primary Dx); Plantar fasciitis; Pain in left foot; Arthralgia of right footStart: 03-17-2025 End: 82-59-7502uqfafbnyhqYJIH D DOLCENot AvailableStart: 02-28-2025 End: 54-68-5359Ihmkvo flowsheetMarc D Dolce DPM FACFAS Work Phone: noms [facility] HospitalnStart: 02-28-2025 End: 79-62-6059Azpjpi flowsheetMarc D Dolce DPM FACFAS Work Phone: noms [facility] Centertart: 02-28-2025 End: 53-62-9440Adszzrmom encounterMarc D Dolce DPM FACFAS Work Phone: NOPS NMA PODComment on above:Foot OrthoticsStart: 02-28-2025 End: 21-92-8537exzwmclcegDULQ D DOLCENot AvailableStart: 02-28-2025 End: 60-96-3231Gmepih outpatient new 30 minutesMarc D Dolce DPM FACFAS Work Phone: noms NMA PODComment on above:Calcaneal spur, left foot (Primary Dx); Plantar fasciitis; Pain in left footStart: 02-18-2025 End: 87-76-0239lgtlhfehulGOY ITZ A LEHMANNFacility:FT evueStart: 02-12-2025 End: 10-38-0174kxwqmbjstiEnil L SchwabFacility:FT ueStart: 11-26-2024 End: 77-50-6672hghsifntbuYosd L SchwabFacility:[facility] BellevueStart: 11-22-2024 End: 34-71-7002grpfcyahgfVfxl L SchwabFacility:FT BellevueStart: 10-07-2024 End: 79-52-8871zfsagyxfqxSgpb L SchwabFacility:[facility] BellevueStart: 09-25-2024 End: 22-55-0137cvpjmmxymhSqbi L SchwabFacility:FT BellevueStart: 06-11-2024 End: 86-91-5734tukkjxmcliPnzt L SchwabFacility:FT BellevueStart: 04-25-2024 End: 34-99-5693Yaxxln outpatient visit 15 minutesManan Medrano MD Work Phone: uh FirelandsComment on above:Benign essential hypertension; BMI 39.0-39.9,adult; Former smokerStart: 04-25-2024 End: 60-38-1050ddgstivgvlNXJGHIOPhoebe Putney [facility] Hospital AmbulatoryStart: 11-24-2023 End: 02-76-5032Rptxod outpatient visit 10 minutesManan Medrano MD Work Phone: uh FirelandsComment on above:Benign essential hypertensionStart: 11-24-2023 End: 19-13-3492gynjndhxjaOWXTTTYPhoebe Putney [facility] Hospital AmbulatoryStart: 10-25-2023 End: 66-62-8344Powybl outpatient visit 15 minutesManan Medrano MD Work Phone: uh FirelandsComment on above:Benign essential hypertension (Primary Dx); Morbid obesity with body mass index (BMI) of 40.0 to 44.9 in adult ([facility]); Former smoker; Metabolic syndromeStart: 10-25-2023 End: 48-87-2264lxwshekiagOYVDJAWPhoebe Putney [facility] Hospital AmbulatoryStart: 10-05-2023 End: 77-96-5580Iyq Drop Gerardo CULLEN [facility] Start: 04-05-2023 End: 93-77-6676Tgq Drop offJodi L Tianna [facility] Start: 07-16-2022 End: 09-66-8365ufxriszenzWW KIM E SALAZAR .Facility:D6Fvcce: 84-55-3307Gakhvb outpatient visit 15 minutesMellissa Salazar Work Phone: [phone]-Uojok [facility] 600 DO Work Phone: Start: 87-01-4005rjdsxcdjffZxhElyse Salazar Facility:29742Zcght: 10-49-5772Ti Benjamin Godinez MD Work Phone: [phone]-Ywjsg [facility] 250 DO Work Phone: Start: 47-43-8362Cx Benjamin Godinez MD Work Phone: [phone]-Phloh [facility] 250 DO Work Phone: Start: 40-83-3725He Benjamin Godinez MD Work Phone: [phone]-Fjrju [facility] 250 DO Work Phone: Start: 09-22-2020 End: 59-26-8263Gjqxevh encounter procedureMellissa SalazarZlcvvf-Hhl-Xroyligp Testing Procedures DateProcedureProcedure DetailPerforming ClinicianStart: 42-20-3507KSXXGD UP IN CARDIOLOGYMOURHAF TRABChristiano repairMellissa Craftight Work Phone: Herniated structure (morphologic abnormality)Kristie Manley Comment on above:had 2 of themNEGATED: Highlighted row has not occurred!ColonoscopyMellissa Ramirez Marie Work Phone: Plan of Treatment DateCare ActivityDetailAuthorStart: 42-40-8412Laigjw Vaccines (1 of 2)Zoster Vaccines (1 of 2)[facility] CenterStart: 04-07-2025 End: 16-92-5496Rxeavjad SupportNOMS NMA PODComment on above:ArrivedStart: 87-00-6075Kjlytukfb vaccinationInfluenza Vaccine (#1)[facility] HealthcareStart: 03-17-2025 End: 00-36-4301Ddkvduzs SupportNOMS NMA PODComment on above:ArrivedStart: 01-27-2025 End: 74-39-2254Sqxlils encounter uppxkljel39/30/2025 8:30 AM EDT Office Visit [address] [place] [phone] Manan Medrano MD [address] [facility] [place] [address] [facility] 04-25-2024 End: 63-65-8008Bimkljf encounter nvgxfbkfa51/26/2024 3:50 PM EDT Office Visit [facility] [address] [facility] [address] [place] [phone] Manan Medrano MD [address] [facility] [address] [place] [address] [facility]: 10-61-4634MDLZU-19 Vaccine ( season)COVID-19 Vaccine ( season)[facility] Start: 67-06-8101Fzlvpdkou vaccinationUnFort Hamilton HospitalStwolverine: 11-77-3818VRXUB-19 Vaccine ( season)COVID-19 Vaccine ( season)[facility] CenterStart: 33-70-9907Xvrlxcmiz vaccination Influenza Vaccine (#1)[facility]: 95-74-7334GZO, Provider: Gutierrez Reid, Status: Pen, Time: 2:00 PMFUV, Provider: Gutierrez Reid, Status: Pen, Time: 2:00 PM-[facility] 250 DO Work Phone: Start: 24-99-9288QQM, Provider: Gutierrez Reid, Status: Pen, Time: 3:00 PMFUV, Provider: Gutierrez Reid, Status: Pen, Time: 3:00 [facility] 250 DO Work Phone: Start: 38-27-6514KEbO/Tdap/Td Vaccines (1 - Tdap) DTaP/Tdap/Td Vaccines (1 - Tdap)[facility]: 51-06-1358Vglxiqyji B Vaccines (1 of 3 - 19+ 3-dose series)Hepatitis B Vaccines (1 of 3 - 19+ 3-dose series)[facility]: 1993 Diabetes mellitus screeningDiabetes ScreeningSouthwest General Health Center Start: 37-06-7682Wybebxezi C screeningHepatitis C ScreeningUnKettering Health [place]: 62-07-3309RKW Vaccines (1 of 1 - Standard series)MMR Vaccines (1 of 1 - Standard series)[facility]: 05-20-1976 COVID-19 Vaccine (#1)COVID-19 Vaccine (#1)[facility] Start: 47-96-4033Gqpggylqh B Vaccines (1 of 3 - 3-dose series)Hepatitis B Vaccines (1 of 3 - 3-dose series)[facility]: 24-90-5498VXC screeningHIV ScreeningSt. Vincent Hospital: 11-95-2404Rkwde panelLipid PanelSouthwest General Health CenterStwolverine: 88-51-1924Lpoybntlo for malignant neoplasm of colonUnKettering Health [place]: 36-19-7070Dofbaa Adult PhysicalYearly Adult PhysicalUnFort Hamilton Hospital Payers DatePayer CategoryPayerPolicy [id number] Health Insurance [id number] Health [id number] [id number] 2.16.840.1.422486.3.57[id number] 2.840.1.950362.3.57[id number] 2.840.1.519896.3.57[id number] 2.840.1.098764.3.57[id number] 2.840.1.051161.3.57[id number] 2.0.1.201840.3.57[id number] 2.840.1.506348.3.57[id number] 2.0.1.421220.3.57[id number] 2.840.1.518177.3.57[id number] 2.0.1.293254.3.57[id number] 2.840.1.376562.3.57[id number] 2.0.1.667646.3.57[id number] 2.840.1.044478.3.57[id number] 2.0.1.322762.3.57[id number] 2.840.1.199935.3.57[id number] 2.840.1.743779.3.57[id number] 2..0.1.671248.3.57[id number] 2..840.1.453263.3.57[id number] 2..0.1.080261.3.57[id number] 2..840.1.401755.3.579.2.16901-46-2363Jqig-euo xy03yr10-6n79-06g6-ov1x-74ve96653zr9Icnjvrs Health InsuranceSelf [id number] [id number]-[id number]-axz6-x48u26i19z5xHcujgnzNA3579UZ Social History DateTypeDetailFacilityStart: 09-22-2020 End: 78-74-0238Vmxzvpx smoking status NHISEx-smoker (finding)[facility]vueStart: 16-25-2126Gwd [facility] CtrStart: 10-25-2023 End: 96-21-2788Gg illicit drug useNo illicit drug use-[facility] 600 DO Work Phone: Comment on above:quit 2009;Start: 10-25-2023 End: 21-25-5023Hcw Assigned At [facility] End: 99-55-6897Nddruly of tobacco useCurrent smokerUnFort Hamilton Hospital Work Phone: End: 32-65-6047Sjxehxo of tobacco useCigarette SmokerUnFort Hamilton Hospital Work Phone: Start: 10-25-2023 End: 29-28-9818Pjjsmzm use and exposureFormer smokeless tobacco userUnFort Hamilton Hospital Work Phone: End: 48-71-5603Nbgcodv of tobacco useChews TobaccoUnFort Hamilton Hospital Work Phone: Start: 10-25-2023 End: 92-47-7744Revbyjl intakeCurrent drinker of alcohol (finding)[facility] Work Phone: Start: 13-47-3443Jhi Assigned At BirthNot on file [facility] Work Phone: Start: 10-15-2023 End: [id number] to SARS-CoV-2 (event)Not sureUnFort Hamilton HospitalStart: [phone] Commentfew nights a weekUnFort [facility] Hospital Work Phone: Tobacco smoking status NHISTobacco smoking consumption unknownNOMS HealthcareStart: 51-29-1025Mnbbfct smoking status NHISNever smoked tobaccoNOND HealthcareStart: 05-53-4495Acztvor use and exposureSmokeless tobacco non-userNOMS Healthcare Goals DatePatient GoalDesired Activity/State Clinical Notes 04-05-2023 to 04-07-2025 Note Date & [id number] History of Present illness Narrative* Gustavo Crane DPM FACFAS - 04/07/2025 8:30 AM EDT Images from the original note were not included. Patient: Stevie Mike : 1975 PCP: [facility] Provider MD Aldo SUBJECTIVE This is a 49 y.o. male that presents today for follow-up of plantar fasciitis left foot. They statethey have been stretching and icing as directed. They relate mild to moderate improvement since their last visit. The patient rates the pain on a scale from 1-10 as an 5 with 10 being the worst pain of their life. This patient also presents today a chief complaint of a painful lesion plantar aspect of the foot. They state the lesion has been slow growing and has multipled. The area is painful and causes marked limitation in ambulation secondary to the pain. They have attempted dsew-mfo-bppnqez anti-inflammatory medications as well as bbbc-njo-sdtxkyn wart treatment to no avail. Allergies: No Known Allergies Past Medical History: Active Ambulatory Problems Diagnosis Date Noted Hypertension 02/28/2025 Resolved Ambulatory Problems Diagnosis Date Noted No Resolved Ambulatory Problems No Additional Past Medical History Medications: Current Outpatient Medications: amLODIPine (Norvasc) 5 MG tablet, Take 5 mg by mouth Daily, Disp: , Rfl: lisinopril-hydroCHLOROthiazide 20-25 MG tablet, Take 1 tablet by mouth Daily, Disp: , Rfl: meloxicam (Mobic) 15 MG tablet, See Instructions, TAKE 1 TABLET BY MOUTH EVERY DAY, # 30 tab(s), Refills(s) 1, Pharmacy: [facility]/pharmacy #[id number], 188.8, cm, 11/22/24 11:41:00 EDT, Height/Length Dosing, 160.2, kg, 11/22/24 11:41:00 EDT, Weight Dosing, Disp: , Rfl: meloxicam (Mobic) 15 MG tablet, Take 1 tablet (15 mg) by mouth Daily Take one pill PO Daily, Disp: 30 tablet, Rfl: 0 metFORMIN (Glucophage) 500 MG tablet, Take 500 mg by mouth, Disp: , Rfl: Review of systems: Constitutional: Denies fever, chills, nausea, vomiting GI: Denies abdominal pain, cramping, loose stool, gastric ulcers Musculoskeletal: Denies low back pain, knee pain, systemic arthritis Neurologic: Denies burning, tingling, transient paralysis OBJECTIVE Physical Examination: DERM: Positive hair growth to b/l feet with good skin turgor noted. Negative openings in skin Thereis pinpoint bleeding noted upon debridement. Pain with lateral compression. No skin lines running through the lesion. The lesions are multiple and sporadic. VASC: DP /PT were palpable bilateral. Capillary refill time < 3 seconds Digits 1-5 bilateral NEURO: [place] Ingrid 5.07 monofilament was intact B/L. Vibratory sensation was intact B/L Musculoskeletal: Muscle strength was +5 over 5 all intrinsic and extrinsic muscles tested. There isless pain with direct palpation of the medial band of the plantar fascia left foot. Mild pain throughout the course of the plantar fascia. No palpable deficits or ecchymosis noted within the plantar fascial band. There is no pain with lateral compression of the heel. Patient has a mild gastrocnemius-soleus equinus with mild tenderness noted at the level of the Achilles tendon. No palpable deficits noted within the Achilles tendon. No pain with range of motion of the ankle or subtalar joint. Diagnostic ultrasound: ASSESSMENT 1. Plantar fasciitis 2. Calcaneal spur, left foot 3. Pain in left foot 4. Verruca plantaris 5. Right foot pain 6. Acquired plantar porokeratosis PLAN The patient was educated on the etiology of plantar fasciitis. I recommended the patient continue stretching and icing on a regular basis. I recommended another injection consisting of 1 cc of 2% lidocaine plain and 1 cc of Kenalog 40 via ultrasonic guidance into the medial and central bands of theplantar fascia. Ultrasound was necessary to ensure exact placement into the medial and central bands of the plantar fascia and avoid injection into the plantar fat pad. Dispensed and a prescription for prednisone 20 mg 1 pill p.o. every day for 10 days. Today I debrided the lesions to the level of pinpoint bleeding. I applied an application of applied 60 percent salicylic acid to the lesions. Covered with an occlusive dressing. He will follow up with me p.r.n. DAINA Anuglo documented in this encounterI-70 Community [id number] NotePatient Education Orthopedics Neck Exercises Ask your health care provider which exercises are safe for you. Do exercises exactly as told by your health care provider and adjust them as directed. It is normal to feel mild stretching, pulling, tightness, or discomfort as you do these exercises. Stop right away if you feel sudden pain or your pain gets worse. Do not begin these exercises until told by your health care provider. Neck exercises can be important for many reasons. They can improve strength and maintain flexibility in your neck, which will help your upper back and prevent neck pain. Stretching exercises Rotation neck stretching 1. Sit in a chair or stand up. 2. Place your feet flat on the floor, shoulder-width apart. 3. Slowly turn your head (rotate) to the right until a slight stretch is felt. Turn it all the way to the right so you can look over your right shoulder. Do not tilt or tip your head. 4. Hold this position for 10?30 seconds. 5. Slowly turn your head (rotate) to the left until a slight stretch is felt. Turn it all the way to the left so you can look over your left shoulder. Do not tilt or tip your head. 6. Hold this position for 10?30 seconds. Repeat times. Complete this exercise times a day. Neck retraction 1. Sit in a sturdy chair or stand up. 2. Look straight ahead. Do not bend your neck. 3. Use your fingers to push your chin backward (retraction). Do not bend your neck for this movement. Continue to face straight ahead. If you are doing the exercise properly, you will feel a slight sensation in your throat and a stretch at the back of your neck. 4. Hold the stretch for 1?2 seconds. Repeat times. Complete this exercise times a day. Strengthening exercises Neck press 1. Lie on your back on a firm bed or on the floor with a pillow under your head. 2. Use your neck muscles to push your head down on the pillow and straighten your spine. 3. Hold the position as well as you can. Keep your head facing up (in a neutral position) and your chin tucked. 4. Slowly count to 5 while holding this position. Repeat times. Complete this exercise times a day. Isometrics These are exercises in which you strengthen the muscles in your neck while keeping your neck still (isometrics). 1. Sit in a supportive chair and place your hand on your forehead. 2. Keep your head and face facing straight ahead. Do not flex or extend your neck while doing isometrics. 3. Push forward with your head and neck while pushing back with your hand. Hold for 10 seconds. 4. Do the sequence again, this time putting your hand against the back of your head. Use your head and neck to push backward against the hand pressure. 5. Finally, do the same exercise on either side of your head, pushing sideways against the pressureof your hand. Repeat times. Complete this exercise times a day. Prone head lifts 1. Lie face-down (prone position), resting on your elbows so that your chest and upper back are raised. 2. Start with your head facing downward, near your chest. Position your chin either on or near yourchest. 3. Slowly lift your head upward. Lift until you are looking straight ahead. Then continue lifting your head as far back as you can comfortably stretch. 4. Hold your head up for 5 seconds. Then slowly lower it to your starting position. Repeat times. Complete this exercise times a day. Supine head lifts 1. Lie on your back (supine position), bending your knees to point to the ceiling and keeping your feet flat on the floor. 2. Lift your head slowly off the floor, raising your chin toward your chest. 3. Hold for 5 seconds. Repeat times. Complete this exercise times a day. Scapular retraction 1. Stand with your arms at your sides. Look straight ahead. 2. Slowly pull both shoulders (scapulae) backward and downward (retraction) until you feel a stretch between your shoulder blades in your upper back. 3. Hold for 10?30 seconds. 4. Relax and repeat. Repeat times. Complete this exercise times a day. Contact a health care provider if: ??? Your neck pain or discomfort gets worse when you do an exercise. ??? Your neck pain or discomfort does not improve within 2 hours after you exercise. If you have any of these problems, stop exercising right away. Do not do the exercises again unlessyour health care provider says that you can. Get help right away if: ??? You develop sudden, severe neck pain. If this happens, stop exercising right away. Do not do the exercises again unless your health care provider says that yo (more content not included)... [facility]08-18-2025 History of Present illness Narrative* Gustavo Crane, DAINA FACFAS - 03/17/2025 8:00 AM EDT Images from the original note were not included. Patient: Stevie Mike : 1975 PCP: Noms Provider MD Aldo SUBJECTIVE This is a 49 y.o. male that presents today for follow-up of plantar fasciitis left foot. They statethey have been stretching and icing as directed. They relate mild to moderate improvement since their last visit. The patient rates the pain on a scale from 1-10 as an 4 with 10 being the worst pain of their life. Patient did go a concert Monday which caused the foot to flare up but has been doing better prior to that. Allergies: No Known Allergies Past Medical History: Active Ambulatory Problems Diagnosis Date Noted Hypertension 02/28/2025 Resolved Ambulatory Problems Diagnosis Date Noted No Resolved Ambulatory Problems No Additional Past Medical History Medications: Current Outpatient Medications: amLODIPine (Norvasc) 5 MG tablet, Take 5 mg by mouth Daily, Disp: , Rfl: lisinopril-hydroCHLOROthiazide 20-25 MG tablet, Take 1 tablet by mouth Daily, Disp: , Rfl: meloxicam (Mobic) 15 MG tablet, See Instructions, TAKE 1 TABLET BY MOUTH EVERY DAY, # 30 tab(s), Refills(s) 1, Pharmacy: [facility]/pharmacy #[id number], 188.8, cm, 11/22/24 11:41:00 EDT, Height/Length Dosing, 160.2, kg, 11/22/24 11:41:00 EDT, Weight Dosing, Disp: , Rfl: meloxicam (Mobic) 15 MG tablet, Take 1 tablet (15 mg) by mouth Daily Take one pill PO Daily, Disp: 30 tablet, Rfl: 0 metFORMIN (Glucophage) 500 MG tablet, Take 500 mg by mouth, Disp: , Rfl: Review of systems: Constitutional: Denies fever, chills, nausea, vomiting GI: Denies abdominal pain, cramping, loose stool, gastric ulcers Musculoskeletal: Denies low back pain, knee pain, systemic arthritis Neurologic: Denies burning, tingling, transient paralysis OBJECTIVE Physical Examination: DERM: Positive hair growth to b/l feet with good skin turgor noted. Negative openings in skin VASC: DP /PT were palpable bilateral. Capillary refill time < 3 seconds Digits 1-5 bilateral NEURO: [place] Ingrid 5.07 monofilament was intact B/L. Vibratory sensation was intact B/L Musculoskeletal: Muscle strength was +5 over 5 all intrinsic and extrinsic muscles tested. There isless pain with direct palpation of the medial band of the plantar fascia left foot. Mild pain throughout the course of the plantar fascia. No palpable deficits or ecchymosis noted within the plantar fascial band. There is no pain with lateral compression of the heel. Patient has a mild gastrocnemius-soleus equinus with mild tenderness noted at the level of the Achilles tendon. No palpable deficits noted within the Achilles tendon. No pain with range of motion of the ankle or subtalar joint. ASSESSMENT 1. Plantar fasciitis 2. Calcaneal spur, left foot 3. Pain in left foot 4. Arthralgia of right foot PLAN The patient was educated on the etiology of plantar fasciitis. I recommended the patient continue stretching and icing on a regular basis. I recommended another injection consisting of 1 cc of 2% lidocaine plain and 1 cc of Kenalog 10 via ultrasonic guidance into the medial and central bands of theplantar fascia. Ultrasound was necessary to ensure exact placement into the medial and central bands of the plantar fascia and avoid injection into the plantar fat pad. I dispensed a prescription formeloxicam 15 mg q.d. to be taken as directed. Follow up 3 weeks for reassessment DAINA Angulo documented in this encounterI-70 Community [id number] Telephone encounter Note* Telephone Encounter - Fariba Workman - 03/17/2025 7:55 AM EDT Pt wasn't to hold off for now on the orthotics [facility] [id number] Miscellaneous Notes* Telephone Encounter - Fariba Workman - 03/17/2025 7:55 AM EDT Pt wasn't to hold off for now on the orthotics * Telephone Encounter - Fariba Workman - 03/06/2025 3:24 PM EDT Pt spoke to Cecilia, notified of benefits, will think about it and let us know next visit * Telephone Encounter - Fariba Workman - 03/06/2025 2:57 PM EDT Left msg to go over benefits Appt 03/17/25 - note in appt screen * Telephone Encounter - Fariba Workman - 03/06/2025 8:26 AM EDT Per Brian Mills with [employer] Ref # [id number] Calendar year plan L3020 Dx: M72.2 Covered @ 80% after ded DED: $1500 $666.33 applied ($833.67 remaining) OOP: $5000 $859.12 applied No PA, no exclusions, no limits $450 SELF PAY * Telephone Encounter - DAINA Angulo - 02/28/2025 8:30 AM EDT Orthotics precertification documented in this encounterI-70 Community [id number] Telephone encounter Note* Telephone Encounter - Fariba Workman - 03/06/2025 3:24 PM EDT Pt spoke to Cecilia, notified of benefits, will think about it and let us know next visit [facility] [id number] Telephone encounter Note* Telephone Encounter - Fariba Workman - 03/06/2025 2:57 PM EDT Left msg to go over benefits Appt 03/17/25 - note in appt screen [place] [id number] Telephone encounter Note* Telephone Encounter - Fariba Workman - 03/06/2025 8:26 AM EDT Per Brian Mills with [employer] Ref # [id number] Calendar year plan L3020 Dx: M72.2 Covered @ 80% after ded DED: $1500 $666.33 applied ($833.67 remaining) OOP: $5000 $859.12 applied No PA, no exclusions, no limits $450 SELF PAY [facility] HospitalZxzlenwyue20-18-5193 Telephone encounter Note* Telephone Encounter - DAINA Angulo - 02/28/2025 8:30 AM EDT Orthotics precertification [facility] [id number] History of Present illness Narrative* DAINA Angulo - 02/28/2025 8:00 AM EDT Images from the original note were not included. Patient: Stevie Mike : 1975 PCP: Noms Provider MD Aldo SUBJECTIVE This is a 49 y.o. male that presents today with a chief complaint of painful left medial heel. Theystay it hurts when they get out of bed in the morning and when they get up from a seated position. The pain improves with ambulation. They deny a history of trauma to the area. They have attempted numerous conservative therapies including: shoe gear modifications, rvgx-dft-ztsdjaw anti-inflammatorymedications, ymvh-gwn-ayjuzqj orthotic devices to no avail. They rate the pain scale from 1-10 as an 8 with 10 being the most painful. Allergies: No Known Allergies Past Medical History: Active Ambulatory Problems Diagnosis Date Noted Hypertension 02/28/2025 Resolved Ambulatory Problems Diagnosis Date Noted No Resolved Ambulatory Problems No Additional Past Medical History Medications: Current Outpatient Medications: meloxicam (Mobic) 15 MG tablet, See Instructions, TAKE 1 TABLET BY MOUTH EVERY DAY, # 30 tab(s), Refills(s) 1, Pharmacy: [facility]/pharmacy #[id number], 188.8, cm, 11/22/24 11:41:00 EDT, Height/Length Dosing, 160.2, kg, 11/22/24 11:41:00 EDT, Weight Dosing, Disp: , Rfl: metFORMIN (Glucophage) 500 MG tablet, Take 500 mg by mouth, Disp: , Rfl: amLODIPine (Norvasc) 5 MG tablet, Take 5 mg by mouth Daily, Disp: , Rfl: lisinopril-hydroCHLOROthiazide 20-25 MG tablet, Take 1 tablet by mouth Daily, Disp: , Rfl: predniSONE (Deltasone) 20 MG tablet, Take 1 tablet (20 mg) by mouth Daily for 10 days, Disp: 10 tablet, Rfl: 0 Review of systems: Constitutional: Denies fever, chills, nausea, vomiting GI: Denies abdominal pain, cramping, loose stool, gastric ulcers Musculoskeletal: Denies low back pain, knee pain, systemic arthritis Neurologic: Denies burning, tingling, transient paralysis OBJECTIVE Physical Examination: DERM: Positive hair growth to b/l feet with good skin turgor noted. Negative openings in skin VASC: DP /PT were palpable bilateral. Capillary refill time < 3 seconds Digits 1-5 bilateral NEURO: [place] Ingrid 5.07 monofilament was intact B/L. Vibratory sensation was intact B/L Musculoskeletal: Muscle strength was +5 over 5 all intrinsic and extrinsic muscles tested. There issignificant pain with direct palpation of the medial band of the plantar fascia left foot. Mild pain throughout the course of the plantar fascia. No palpable deficits or ecchymosis noted within the plantar fascial band. There is no pain with lateral compression of the heel. Patient has a mild gastrocnemius-soleus equinus with mild tenderness noted at the level of the Achilles tendon. No palpable deficits noted within the Achilles tendon. No pain with range of motion of the ankle or subtalar joint. Diagnostic ultrasound: Diagnostic ultrasound 12 megahertz linear probe increased thickness of the plantar fascia greater than 4 mm. Small spur noted at site 4 of the calcaneus left foot. ASSESSMENT 1. Plantar fasciitis 2. Calcaneal spur, left foot 3. Pain in left foot PLAN The patient was educated on the etiology of plantar fasciitis left foot. They were instructed in detail on stretching on a regular basis. They are also instructed on icing the plantar fascia on a regular basis as well. I dispensed a night splint to be worn to help provide passive stretch to the plantar fascial band. The patient was given injection consisting of 1 cc of 2% lidocaine plain and 1 ccof Kenalog 10 via ultrasonic guidance into the medial and central bands of the plantar fascia. Ultrasound was necessary to ensure exact placement into the medial and central bands of the plantar fascia and avoid injection into the plantar fat pad. I am also recommending custom molded orthotic devices. Patient was digitally scan today for custom-molded orthotic devices. Care was taken to place thesubtalar joint in neutral position. The patient was informed that the orthotics will take 3 weeks to arrive from the laboratory. A plastic pre-fabricated static Ankle-Foot Orthosis ([id number]) was dispensed and fitted at this visit.The device will be utilized for the next six to eight weeks. The function of this device is to serve as an anti-contracture device of the plantar fascia and Achilles tendon and to restrict and limit motion and help reduce excessive stress and strain to the plantar fascia and Achilles tendon. The goals of this therapy are to; 1.) To reduce the pain and symptoms of post- static dyskinesia, 2.) Prevent scj-pgqetk-jbignar contracture of the Achilles tendon. 3.) Provide static stretch of the Achillestendon, 4.) Reduce plantar fasciitis. The patient states that the device is comfortable when applied at this time. The patient was shown and told in detail how to properly wear and care for the device. Written instructions and warranty information were given along with the list of the current Durable Medical Equipment Supplier Guidelines. DAINA Angulo documented in this encounterI-70 Community [id number] NotePatient Education Orthopedics Foot Pain Many things can cause foot pain. Common causes include injuries to the foot. The injuries include sprains or broken bones, or injuries that affect the nerves in the feet. Other causes of foot pain include arthritis, blisters, and bunions. To know what causes your foot pain, your health care provider will take a detailed history of your symptoms. They will also do a physical exam as well as imaging tests, such as X-ray or MRI. Follow these instructions at home: Managing pain, stiffness, and swelling ??? If told, put ice on the painful area. ? Put ice in a plastic bag. ? Place a towel between your skin and the bag. ? Leave the ice on for 20 minutes, 2?3 times a day. ??? If your skin turns bright red, remove the ice right away to prevent skin damage. The risk of damage is higher if you cannot feel pain, heat, or cold. Activity ??? Do not stand or walk for long periods. ??? Do stretches to relieve foot pain and stiffness as told by your provider. ??? Do not lift anything that is heavier than 10 lb (4.5 kg), or the limit that you are told, untilyour provider says that it is safe. Lifting a lot of weight can put added pressure on your feet. ??? Return to your normal activities as told by your provider. Ask your provider what activities are safe for you. Lifestyle ??? Wear comfortable, supportive shoes that fit you well. Do not wear high heels. ??? Keep your feet clean and dry. General instructions ??? Take vzzl-ohm-roqjsky and prescription medicines only as told by your provider. ??? Rub your foot gently. ??? Pay attention to any changes in your symptoms. Let your provider know if symptoms become worse. ??? Keep all follow-up visits. Your provider will want to monitor your progress. Contact a health care provider if: ??? Your pain does not get better after a few days of treatment at home. ??? Your pain gets worse. ??? You cannot stand on your foot. ??? Your foot or toes are swollen. ??? Your foot is numb or tingling. Get help right away if: ??? Your foot or toes turn white or blue. ??? You have warmth and redness along your foot. This information is not intended to replace advice given to you by your health care provider. Make sure you discuss any questions you have with your health care provider. Document Revised: 08/10/2023 Document Reviewed: 04/18/2023 [employer] Patient Education ? 2023 [email or web address] 04-25-2024 History of Present illness Narrative* Manan Medrano MD - 04/25/2024 3:50 PM EDT Subjective Stevie Mike is a 48 y.o. male Chief Complaint Follow-up HPI Patient is here for follow-up and to management for hypertension, obesity, and metabolic syndrome. Since last time I saw him he reports he is feeling well. He denies any cardiac complaint chest pain,palpitation, lightheadedness, dizziness or syncope. Since last time [...] Scribe Attestation By signing my name below, eBcky Irvin LPN, Scribe attest that this documentation has been prepared under the direction and in the presence of MD Percy. Provider Attestation - Scribe documentation All medical record entries made by the Scribe were at my direction and personally dictated by me. Ihave reviewed the chart and agree that the record accurately reflects my personal performance of the history, physical exam, discussion and plan. documented in this [facility] Work Phone: 1(706) 650-254409-26-2024 Instructions* Patient Instructions* Becky Chapa LPN - 04/25/2024 3:50 PM [...] Provided instructions on exercise. documented in this [facility] Work Phone: 1(584) 752-731204-26-2024 History of Present illness Narrative* Manan Medrano MD - 11/24/2023 8:30 AM EDT Subjective Stevie Mike is a 48 y.o. [...] Attestation By signing my name below, Irhianna Scribe attest that this documentation has been prepared under the direction and in the presence of MD Percy. Provider Attestation - Scribe documentation All medical record entries made by the Scribe were at my direction and personally dictated by me. Ihave reviewed the chart and agree that the record accurately reflects my personal performance of the history, physical exam, discussion and plan. * Manan Medrano MD - 11/24/2023 8:30 AM EDT Subjective Stevie Mike is a 48 y.o. [...] the direction and in the presence of MD Percy. Provider Attestation - Scribe documentation All medical record entries made by the Scribe were at my direction and personally dictated by me. William reviewed the chart and agree that the record accurately reflects my personal performance of the history, physical exam, discussion and plan. [facility]: 1(172) 732-539004-26-2024 Instructions* Patient Instructions* Becky Chapa LPN - 11/24/2023 8:30 AM EDT Follow up in Mar as scheduled. [facility] Work Phone: 1(935) 362-228403-27-2024 History of Present illness Narrative* Manan Medrano MD - 10/25/2023 2:30 PM EDT Subjective Stevie Mike is a 47 y.o. male Chief Complaint Hypertension Chief Complaint Patient is here for earlier follow-up to discuss treatment and management for hypertension. He had been seen in the past by our nurse practitioner and by Dr. Godinez. He underwent cardiac catheterization remotely which was [...] (BMI) of 40.0 to 44.9 in adult (CMS/HCC) 3. Former smoker 4. Metabolic syndrome Scribe Attestation By signing my name below, Becky Irvin LPN, Scribe attest that this documentation has been prepared under the direction and in the presence of MD Percy. Provider Attestation - Scribe documentation All medical record entries made by the Scribe were at my direction and personally dictated by me. Ihave reviewed the chart and agree that the record accurately reflects my personal performance of the history, physical exam, discussion and plan. documented in this [facility] Work Phone: 1(601) 413-183803-27-2024 Instructions* Patient Instructions* Becky Chapa LPN - 10/25/2023 2:30 PM [...] on exercise. Increase Norvasc [facility] Work Phone: [phone] 378-929609-06-2023 Evaluation + Plan note Diagnostic Tests Pending * HgbA1c 04[facility]05/23 [facility] Diagnosis Benign essential hypertension- Primary Essential hypertension, benign Morbid obesity with body mass index (BMI) of 40.0 to 44.9 in adult ([facility]) Former smoker Personal history of tobacco use, presenting hazards to health Metabolic syndrome Dysmetabolic Syndrome X documented in this encounter [facility] Work Phone: Evaluation note* Diagnosis Benign essential hypertension Essential hypertension, benign documented in this encounter [facility] Work Phone: Evaluation note* Diagnosis Benign essential hypertension Essential hypertension, benign BMI 39.0-39.9,adult Former smoker Personal history of tobacco use, presenting hazards to health documented in this encounter [facility] Work Phone: Evaluation note* Diagnosis Calcaneal spur, left foot- Primary Plantar fasciitis Plantar fascial fibromatosis Pain in left foot Pain in soft tissues of limb [facility] Diagnosis Calcaneal spur, left foot- Primary Plantar fasciitis Plantar fascial fibromatosis Pain in left foot Pain in soft tissues of limb Arthralgia of right foot [facility]* Diagnosis Neoplasm of uncertain behavior of skin- Primary Plantar fasciitis Plantar fascial fibromatosis Calcaneal spur, left foot Pain in left foot Pain in soft tissues of limb Verruca plantaris Plantar wart Right foot pain Pain in soft tissues of limb Acquired plantar porokeratosis [facility] N[facility]ative* The patient presents [...] medication regimen. He denies medication side effects. [facility] 600 DO Work Phone: Hospital course Narrative No data available for this section [facility] Discharge instructions No data available for this section [facility] No data available for this section [facility] HospitalReason for referral (narrative)* Consultation (Routine) - AuthorizedSpecialtyDiagnoses / ProceduresReferred By Contact Referred To ContactCardiology Diagnoses Benign essential hypertension Procedures Follow Up In Cardiology Manan Medrano MD [address] [facility] 2, [address] [address] Referral IDStatusAlbaasonStart DateExpiration DateVisits RequestedVisits [id number]/27/20243/ * Consultation (Routine) - AuthorizedSpecialtyDiagnoses / ProceduresReferred By ContactReferred To ContactCardiology Diagnoses Benign essential hypertension Procedures Follow Up In Cardiology Manan Medrano MD [address] [facility] [address], [address] [address] Manan Medrano MD [address] [facility] [address], [address] [address] Referral IDStatNationwide Children's [facility] DateExpiration DateVisits RequestedVisits [id number]/27/20243/ [facility] Work Phone: Reason for referral (narrative)* Consultation (Routine) - AuthorizedSpecialtyDiagnoses / ProceduresReferred By Contact Referred To ContactCardiology Diagnoses Benign essential hypertension Procedures Follow Up In Cardiology Manan Medrano MD [address] [place] [address] 2, [place] [address] Manan Medrano MD [address] [place] [address] 2, [address] [address] Referral IDStatusReasonStart DateExpiration DateVisits RequestedVisits [id number]/26/20249/26/202511 [facility] Work Phone: Advance Directives No Advanced Directives Records Found Advance Directive Response Recorded Date/ Time Advance Directives No March 04 9:36pm Chief Complaint and Reason for Visit Chief Complaint Abnormal Stress, Ang derik Assessments No Assessments Information Available Family History No Family History Records Found Relationship Condition Age at Onset Recorded Date/T alba father Diabetes mellitus Unknown LeukemiaUnknownHypertensionUnknownHistory of heart surgeryUnknownUnknown Family Member Name Dates Details Family history of leukemia: Father(V16.6, Z80.6) Status:ActiveFamily history of coronary artery disease: Father(V17.3, Z82.49) Status:ActiveFamily history of asthma: Father(V17.5, Z82.5) Status:ActiveHistory of coronary artery bypass graft: Father(V45.81, Z95.1) Status:Active Summary Purpose Chief [...] section and content) DATE CREATED AUTHOR 09/06/2021 [facility] DATE CREATED AUTHOR AUTHOR'S ORGANIZ ATION 06/03/2022 [facility] DATE CREATED AUTHOR AUTHOR'S ORGANIZ ATION 06/03/2022 [facility] DATE CREATED AUTHOR AUTHOR'S ORGANIZ ATION 09/30/2022 [facility] DATE CREATED AUTHOR AUTHOR'S ORGANIZ ATION 04/27/2024 [facility] DATE CREATED AUTHOR AUTHOR'S ORGANIZ ATION 04/08/2025 [facility] DATE CREATED AUTHOR AUTHOR'S ORGANIZ ATION 05/02/2025 [facility] DATE CREATED AUTHOR AUTHOR'S ORGANIZ ATION 05/22/2025 [facility] DATE CREATED AUTHOR AUTHOR'S ORGANIZ ATION 06/12/2025 [facility] Patient Care team informatio n (unrecognized section and content) Team MemberRelationshipSpecialtyStart DateEnd Date Kristie Manley, PHOTOENGRAVING PRINTER-CUT OUT WORKER [address] [place] [address] PCP - General10/25/23Team MemberRelationshipSpecialtyStart DateEnd Date Kristie Manley, PHOTOENGRAVING PRINTER-CUT OUT WORKER [address] [place] [address] PCP - General10/25/23Team MemberRelationshipSpecialtyStart DateEnd Date Unallocated, Noms ProviderMD Pushpa [facility] [place] [address] PCP - GeneralFamily Medicine02/28/25 Kristie Manley NP [address] [place] [address] Referring Physicianmily Medicine02/28/25Team MemberRelationshipSpecialtyStart DateEnd Date Unallocated, Noms ProviderMD Pushpa [facility] [place] [address] PCP - Generalmily Medicine02/28/25 Kristie Manley NP [address] [place] [address] Referring Physicianmily Medicine02/28/25Team MemberRelationshipSpecialtyStart DateEnd Date Unallocated, Noms ProviderMD Pushpa [facility] [place] [address] PCP - Generalmily Medicine02/28/25 Kristie Manley NP [address] [place] [address] Referring Physicianmily Medicine02/28/25Team MemberRelationshipSpecialtyStart DateEnd Date Unallocated, Demetria Mccain MD [address] [place] [address] PCP - [facility] Medicine02/28/25 Kristie Manley NP [address] [place] [address] Referring PhysicianPiedmont [facility]02/28/25Team MemberRelationshipSpecialtyStart DateEnd Date Unallocated, Demetria Mccain MD [address] [place] [address] PCP - [facility]02/28/25 Krisite Manley NP [address] [place] [address] Referring PhysicianPiedmont Macon Hospital02/28/25 Reason for Visit (unrecogniz ed section and content) ReasonCommentsHypertensionReasonCommentsHypertensionBlood Pressure Check SpecialtyDiagnoses / ProceduresReferred By ContactReferred To ContactCardiology Diagnoses Benign essential hypertension Procedures Follow Up In Cardiology Manan Medrano MD [address] [place] [address] 2, [address] [address] Referral IDStatusReasonStart DateExpiration DateVisits RequestedVisits [id number]/27/20243/165677HbbpizIbqwtomdLzwkod-hf3 months SpecialtyDiagnoses / ProceduresReferred By ContactReferred To ContactCardiology Diagnoses Benign essential hypertension Procedures Follow Up In Cardiology Manan Medrano MD [address] [facility] 2, [address] [address] Manan Medrano MD [address] [place] [address] 2, [address] [address] Referral IDStatusReasonStwolverine DateExpiration DateVisits RequestedVisits [id number]/27/20243/265140AsduycOgvumqywLahm PainPain in RT heelSpecialtyDiagnoses / ProceduresReferred By ContactReferred To Contact Podiatry Diagnoses Pain in right foot Procedures [place] OFFICE/OUTPATIENT NEW LOW MDM 30 MINUTES Itz Cullen, CARMEN CuellarYusuf [facility] [address] [place] [address] Phone: tel: fax: Gustavo Crane, DPM FACFAS [address] [place] [address] Phone: tel: fax: Referral IDStatusReasonStart DateExpiration DateVisits RequestedVisits [id number]/24/202510/303379PvohowEcfvmrguLbdpork FasciitisF/U LT foot plantar fasciitis inj a8TgdtfkSwlve DateCommentsFoot Lksruteuu37/01/2025 FOR RECORDS PERTAINING TO PATIENTS WHO ARE [...] BE BASED ON THE PRIMARY CLINICAL RECORDS. [employer] [facility]. provides no warranty or guarantee of the accuracy or completeness of information in this document.
--- OUTSIDE RECORDS SUMMARY | 2025-06-25 09:41 | XMS_ITS | Clinical Summary ---
Author Organization [facility] Address [address] [place] [address] Care Team Providers Care Customer Assistance Representative Name Role Phone Vineet Kristie RAMP AGENT Unavailable Unallocated, [facility] Provider MD Primary Care Provi claudia Allergies No known active allergies Medications MedicationSigDispense QuantityRefillsLast FilledStart DateEnd DateStatus amLODIPine (Norvasc) 5 MG tablet Take 5 mg by mouth DailyActive lisinopril-hydroCHLOROthiazide 20-25 MG tablet Take 1 tablet by mouth DailyActive meloxicam (Mobic) 15 MG tablet See Instructions, TAKE 1 TABLET BY MOUTH EVERY DAY, # 30 tab(s), Refills(s) 1, Pharmacy: [facility]/pharmacy #[id number], 188.8, cm, 11/22/24 11:41:00 EDT, Height/Length Dosing, 160.2, kg, 11/22/24 11:41:00 EDT, Weight Toeazi575Active metFORMIN (Glucophage) 500 MG tablet Take 500 mg by mouth5Active Active Problems ProblemNoted DateDiagnosed CvceCgvpiyvvfmqu99/01/2025 Encounters DateTypeDepartmentCare ZyriTfucqzrbmvg18/08/2025 8:30 AM EDTClinical Support [facility] [address] [place] [address] Gustavo Almeida, DPM FACFAS Neoplasm of uncertain behavior of skin (Primary Dx); Plantar fasciitis; Calcaneal spur, left foot; Pain in left foot; Verruca plantaris; Right foot pain; Acquired plantar gnsyjmobglndj68/08/2025amboo flowsheet [facility] [place] [address] [place] [address] Gustavo Almeida, DPM FACFAS from Last 3 Months Social History Tobacco UseTypesPacks/DayYears UsedDateSmoking Tobacco: NeverSmokeless Tobacco: Never Tobacco Cessation:Counseling Given: Yes Sex and Gender InformationValueDate RecordedSex Assigned at BirthNot on file Legal TtfTfcq8410/12/2022 8:21 PM EDTGender IdentityNot on fileSexual Orientation Not on file Last Filed Vital Signs Vital SignReadingTime TakenCommentsBlood Gwysnwbw132/8009 8:28 AM EDT Qaaye477204/07/2025 8:28 AM EDTTemperature--Respiratory Rate--Oxygen Saturation-- Inhaled Oxygen Concentration--Lgznln765 kg (350 lb)04/07/2025 8:28 AM EDTHeight 193 cm (6' 4 )04/07/2025 8:28 AM EDTBody Mass Index42.609 8:28 AM EDT Plan of Treatment Health MaintenanceDue DateLast DoneCommentsCT Tamjteinseyz56/21/1977Colonoscopy 1976Colorectal Cancer Obrjhhzlc31/21/1977FIT-DNA1976FIT1976 FOBT11/18/19769636Egqholrwnkxtc44/21/1977COVID-19 Vaccine ( season) 2025Influenza Vaccine (#1)2025Pneumococcal Vaccine: Pediatrics (0 to 5 Years) and At-Risk Patients (6 to 64 Years)Aged OutNo longer eligible based on patient's age to complete this topic Insurance [place]STE[place]IE [id number] Care Teams Team MemberRelationshipSpecialtyStart DateEnd Date Unallocated, Noms Provider, [address] [place] [address], [place] [id number] PCP - GeneralMon[facility] And Clinicsly Medicine02/28/25 Kristie Manley NP [address] [place] [address] Referring PhysicianFlint River Hospital02/28/25
--- OUTSIDE RECORDS SUMMARY | 2025-06-25 09:41 | XMS_ITS | Clinical Summary ---
Author Organization [facility] Address [address] [place] [address] Phone Care Team Providers Care Skinner Pelts Name Role Phone Kristie Manley APRN-DISEASE CASE MANAGER Primary Care Provider [phone] Allergies No known active allergies Medications MedicationSigDispense [...] (BMI) of 40.0 to 44.9 in adult10/25/2023Former hsdyoh2010/25/2023 Metabolic wxgxrbup99/27/2024enign essential /08/2023 Family History Medical HistoryRelationNameCommentsDiabetesFathercabgFatherRelationNameStatus CommentsFather Social History Tobacco UseTypesPacks/DayYears UsedDateSmoking Tobacco: FormerCigarettesQuit: 2007Smokeless Tobacco: FormerChewQuit: 2018 Tobacco Cessation:Counseling Given: Not Answered Alcohol UseStandard Drinks/WeekCommentsYes0 (1 standard drink = 0.6 oz pure alcohol)few nights a weekSex and Gender InformationValueDate RecordedSex Assigned at BirthNot on fileLegal WekOazg78/26/2022 8:45 PM ESTGender Identity Not on fileSexual OrientationNot on file Last Filed Vital Signs Vital SignReadingTime TakenCommentsBlood Yuxakfgm191/8404/25/2024 4:33 PM EDT Tlndp0217/26/2024 4:07 PM EDTTemperature--Respiratory Rate--Oxygen Saturation-- Inhaled Oxygen Concentration--Qxdecf774 kg (328 lb)04/25/2024 4:07 PM EDTHeight 193 cm (6' 4 )04/25/2024 4:07 PM EDTBody Mass Index39.9304/25/2024 4:07 PM EDT Plan of Treatment DateTypeDepartmentCare Team (Latest Contact Info)Ovxvkrfizxm69/05/2026 10:10 AM ESTOffice Visit [place] [address] [place] [address] Yolis Medrano MD [address] [facility] 2, [address] [place] [address] Health MaintenanceDue DateLast DoneCommentsCT Azdsntgzakns50/21/1977Colonoscopy 1976Colorectal Cancer Ooqnqadfs51/21/1977FIT-DNA (Cologuard)1976FIT 1976HIV Aptrzijjr50/21/1977Lipid Panel1976Jtrtpufapsdgn89/21/1977 Yearly Adult Dkkwfrpn92/21/1977MMR Vaccines (1 of 1 - Standard series)1977 Diabetes Teslviinr28/21/1995Hepatitis C Jbxydpaem90/21/1995Hepatitis B Vaccines (1 of 3 - 19+ [...] Teams Team MemberRelationshipSpecialtyStart DateEnd Date Kristie Manley, CUT OFF OPERATOR SCORER-DISEASE CASE MANAGER [address] [place] [address] PCP - General10/25/23
--- NOTE | 2025-06-25 09:47 | XR_ITS ---
The [address] [address] Patient Name: STEVIE MIKE MRN: [id number] date: 1975 Sex: M Assigned Patient Location: [facility] Current Patient Location: [facility] Accession/Order Number: [id number] Exam Date: 06/25/2025 09:55 Report Date: 06/25/2025 10:45 At the request of: BRANDI WYNN Procedure: XR knee RT 4V RIGHT KNEE - 4 views COMPARISON: Right tib-fib 09/25/2024 CLINICAL DATA: Right knee pain and swelling. No injury. AP, lateral and both oblique views were obtained. There is osteopenia. No acute fracture or dislocation is identified. There is minimal narrowing at the medial tibiofemoral joint compartment. There is minor marginal spurring. A small amount of joint fluid is seen. No soft tissue swelling is noted. XR/XR knee RT 4V IMPRESSION: MINOR DEGENERATIVE CHANGE. NO ACUTE BONY FINDINGS. Impression dictated by: Gauri Shetty M.D. 06/25/2025 10:45 AM Dictation Location: [place] [address] Electronically authenticated by: [id number] Date: 06/25/2025 10:45
== END 2025-06-25 09:37 | disposition home or self-care (01) ==
LOC: RAD 09:38
PROVIDERS: PCP Nurse Practitioner; Visit Provider Nurse Practitioner
DX: M25.461 Effusion, right knee (principal); M25.561 Pain in right knee; Z87.891 Personal history of nicotine dependence; Z68.41 Body mass index [BMI] 40.0-44.9, adult
CPT/HCPCS: 73564